=== PATIENT | male | born 1965 | race Caucasian/White ===

== ENCOUNTER 2018-10-02 12:00 | Inpatient (IN) | payer MEDICAID ==
[~2018-10-02] VITALS: Ht 190.5 cm; Wt 94.3 kg
[2018-10-02] MEDS ORDERED: RISP2 PO (12:45)
[2018-10-02] MEDS ORDERED: GABA-529 PO (12:45)
[2018-10-02 12:53] LABS: BASOPHILS % (AUTO) 0.9 % (0.0-2.0); EOSINOPHILS % (AUTO) 1.6 % (1.0-6.0); HEMATOCRIT 41.7 % (41-53); HEMOGLOBIN 13.9 g/dL (13.5-17.5); LYMPHOCYTES # (AUTO) 1.9 K/uL (1.0-4.8); LYMPHOCYTES % (AUTO) 29.4 % (22.0-44.0); MEAN CORPUSCULAR HEMOGLOBIN 31.3 pg (26.0-34.0); MEAN CORPUSCULAR HGB CONC 33.4 G/dL (31.0-37.0); MEAN CORPUSCULAR VOLUME 94 fL (80-100); MONOCYTES # (AUTO) 0.4 K/uL (0.1-1.0); MONOCYTES % (AUTO) 6.2 % (2.0-9.0); NEUTROPHILS # (AUTO) 3.9 K/uL (1.8-7.7); NEUTROPHILS % (AUTO) 61.9 % (40.0-70.0); PLATELET COUNT (AUTO) 230 K/uL (150-450); RED BLOOD CELL COUNT(AUTO) 4.45 MIL/uL (4.50-5.90)
[2018-10-02 13:05] LABS: ANION GAP 9 mmol/L (8-16); CARBON DIOXIDE 27 mmol/L (22-29); CHLORIDE 104 mmol/L (98-107); CREATININE 0.86 mg/dL (0.60-1.30); GLOMERULAR FILTR. RATE CALC > 60 mL/min (>60); GLUCOSE,RANDOM 96 mg/dL (70-110); POTASSIUM 3.8 mmol/L (3.5-5.1); SODIUM SERUM 140 mmol/L (136-145); UREA NITROGEN, BLOOD 6 mg/dL (7-18)
[2018-10-02 13:10] LABS: ALANINE AMINOTRANSFERASE 32 U/L (12-78); ALBUMIN 3.6 g/dL (3.4-5.0); ALKALINE PHOSPHATASE 94 U/L (46-116); ASPARTATE AMINOTRANSFERASE 26 U/L (15-37); BILIRUBIN,TOTAL 0.2 mg/dL (0.1-1.0); TOTAL PROTEIN, SERUM 6.7 g/dL (6.4-8.2)
[2018-10-02 14:25] LABS: AMPHET/METH SCREEN,URINE NEGATIVE (NEGATIVE); BARBITURATE SCREEN, URINE NEGATIVE (NEGATIVE); BENZODIAZEPINES SCREEN,URINE NEGATIVE (NEGATIVE); CANNABINOID SCREEN,URINE POSITIVE (NEGATIVE); COCAINE SCREEN,URINE NEGATIVE (NEGATIVE); METHADONE SCREEN, URINE NEGATIVE (NEGATIVE); OPIATE SCREEN,URINE NEGATIVE (NEGATIVE)
[2018-10-02 14:27] LABS: PHENCYCLIDINE SCREEN,URINE NEGATIVE (NEGATIVE)
[2018-10-02] MEDS ORDERED: PROMETHAZINE HCL 25 MG TABLET PO PRN (15:15)
[2018-10-02] MEDS ORDERED: HydrOXYzine PAMOATE 50 MG CAPSULE PO PRN (15:15)
[2018-10-02] MEDS ORDERED: GuaiFENesin/D-METHORPHAN [SUGAR-FREE] 200-20MG/10 ML SYRUP UDCUP PO PRN (15:15)
[2018-10-02] MEDS ORDERED: ZOLPIDEM TARTRATE 10 MG TABLET PO PRN (15:15)
[2018-10-02] MEDS ORDERED: LOPERAMIDE HCL 2 MG CAPSULE PO PRN ×2 (15:15)
[2018-10-02] MEDS ORDERED: LORazepam 2 MG TABLET PO PRN (15:15)
[2018-10-02] MEDS ORDERED: MAG HYDROX/AL HYDROX/SIMETH ES 30 ML SUSPENSION UDCUP PO PRN (15:15)
[2018-10-02] MEDS ORDERED: TUBERCULIN, PURIFIED PROTEIN DERIVATIVE 5 TU/0.1 ML SYRINGE ID ONE (15:15)
[2018-10-02] MEDS ORDERED: OLANZapine 5 MG RAPDIS TABLET PO PRN (15:15)
[2018-10-02] MEDS ORDERED: CYANOCOBALAMIN 1,000 MCG/ML VIAL IM ONE (15:15)
[2018-10-02] MEDS ORDERED: MAGNESIUM HYDROXIDE SUSPENSION 30 ML UDCUP PO PRN (15:15)
[2018-10-02] MEDS ORDERED: ACETAMINOPHEN 325 MG TABLET PO PRN (15:15)
[2018-10-02] MEDS: GABAPENTIN 300 MG CAPSULE PO SCH ×2 (16:11→20:33)
[2018-10-02] MEDS ORDERED: OLANZapine 10 MG RAPDIS TABLET PO SCH (21:00)
[2018-10-02] MEDS: THIAMINE HCL 100 MG TABLET PO SCH (21:16)
[2018-10-03] VITALS (11 sets, daily range): BP systolic 119–148; BP diastolic 64–96
[2018-10-03] MEDS ORDERED: LORazepam 2 MG TABLET PO PRN (07:00)
[2018-10-03] MEDS: DULoxetine HCL 20 MG CAPSULE PO SCH (09:44)
[2018-10-03] MEDS: FOLIC ACID 1 MG TABLET PO SCH (09:44)
[2018-10-03] MEDS: THIAMINE HCL 100 MG TABLET PO SCH ×2 (09:44→16:51)
[2018-10-03] MEDS: LORazepam 2 MG TABLET PO SCH ×4 (09:44→21:25)
[2018-10-03] MEDS: MULTIVITAMINS WITH MINERALS, THERAPEUTIC TABLET PO SCH (09:44)
[2018-10-03] MEDS: GABAPENTIN 300 MG CAPSULE PO SCH ×4 (09:44→21:25)
[2018-10-03] MEDS: NICOTINE 21 MG/24 HOUR PATCH TD SCH (09:46)
[2018-10-03] MEDS: ASPIRIN 81 MG EC TABLET PO SCH (09:46)
[2018-10-03 09:48] LABS: HEMOGLOBIN A1C 5.9 % (4.5-6.2)
[2018-10-03 10:02] LABS: CHOL/HDL RATIO 2.5 (4.2-7.3); FREE T4 (FREE THYROXINE) 0.95 ng/dL (0.76-1.46); THYROID STIMULATING HORMONE 0.52 uIU/mL (0.36-3.74)
[2018-10-03] MEDS ORDERED: QUEtiapine FUMARATE 25 MG TABLET PO PRN (17:45)
[2018-10-03] MEDS ORDERED: QUEtiapine FUMARATE 100 MG TABLET PO SCH (21:00)
[2018-10-04 08:00] VITALS: BP 142/84
[2018-10-04] MEDS ORDERED: QUEtiapine FUMARATE 25 MG TABLET PO SCH (09:00)
[2018-10-04] MEDS: FOLIC ACID 1 MG TABLET PO SCH (09:18)
[2018-10-04] MEDS: MULTIVITAMINS WITH MINERALS, THERAPEUTIC TABLET PO SCH (09:18)
[2018-10-04] MEDS: THIAMINE HCL 100 MG TABLET PO SCH ×2 (09:18→17:06)
[2018-10-04] MEDS: DULoxetine HCL 20 MG CAPSULE PO SCH (09:18)
[2018-10-04] MEDS: GABAPENTIN 300 MG CAPSULE PO SCH ×4 (09:18→20:54)
[2018-10-04] MEDS: NICOTINE 21 MG/24 HOUR PATCH TD SCH (09:19)
[2018-10-04] MEDS: ASPIRIN 81 MG EC TABLET PO SCH (09:19)
[2018-10-04] MEDS: LORazepam 2 MG TABLET PO SCH ×4 (09:19→20:54)
[2018-10-04] MEDS: QUEtiapine FUMARATE 25 MG TABLET PO SCH ×2 (13:14→17:06)
[2018-10-04 15:15] VITALS: BP 110/77
[2018-10-04 16:36] VITALS: BP 128/88
[2018-10-04] MEDS ORDERED: QUEtiapine FUMARATE 200 MG TABLET PO SCH (21:00)
[2018-10-05 04:07] VITALS: BP 129/85
[2018-10-05] MEDS ORDERED: LORazepam 1 MG TABLET PO PRN (07:00)
[2018-10-05 08:00] VITALS: BP 147/98
[2018-10-05] MEDS: ASPIRIN 81 MG EC TABLET PO SCH (09:42)
[2018-10-05] MEDS: DULoxetine HCL 20 MG CAPSULE PO SCH (09:42)
[2018-10-05] MEDS: QUEtiapine FUMARATE 25 MG TABLET PO SCH ×3 (09:42→16:48)
[2018-10-05] MEDS: FOLIC ACID 1 MG TABLET PO SCH (09:42)
[2018-10-05] MEDS: GABAPENTIN 300 MG CAPSULE PO SCH ×4 (09:42→21:02)
[2018-10-05] MEDS: MULTIVITAMINS WITH MINERALS, THERAPEUTIC TABLET PO SCH (09:43)
[2018-10-05] MEDS: THIAMINE HCL 100 MG TABLET PO SCH ×2 (09:43→16:48)
[2018-10-05] MEDS: NICOTINE 21 MG/24 HOUR PATCH TD SCH (09:43)
[2018-10-05] MEDS: LORazepam 1 MG TABLET PO SCH ×4 (09:44→21:02)
[2018-10-05 17:00] VITALS: BP 153/95
[2018-10-05] MEDS ORDERED: QUEtiapine FUMARATE 200 MG TABLET PO SCH (21:00)
[2018-10-05 22:30] VITALS: BP 153/95
[2018-10-06] MEDS ORDERED: LORazepam 1 MG TABLET PO PRN (07:00)
[2018-10-06 07:07] VITALS: BP 125/90
[2018-10-06] MEDS: NICOTINE 21 MG/24 HOUR PATCH TD SCH (09:18)
[2018-10-06] MEDS: FOLIC ACID 1 MG TABLET PO SCH (09:19)
[2018-10-06] MEDS: DULoxetine HCL 20 MG CAPSULE PO SCH (09:19)
[2018-10-06] MEDS: QUEtiapine FUMARATE 25 MG TABLET PO SCH ×3 (09:19→16:38)
[2018-10-06] MEDS: ASPIRIN 81 MG EC TABLET PO SCH (09:19)
[2018-10-06] MEDS: THIAMINE HCL 100 MG TABLET PO SCH ×2 (09:19→16:36)
[2018-10-06] MEDS: GABAPENTIN 300 MG CAPSULE PO SCH ×2 (09:19→12:29)
[2018-10-06] MEDS: MULTIVITAMINS WITH MINERALS, THERAPEUTIC TABLET PO SCH (09:19)
[2018-10-06 10:34] VITALS: BP 136/98
[2018-10-06 13:58] VITALS: BP 101/56
[2018-10-06] MEDS: GABAPENTIN 400 MG CAPSULE PO SCH (16:46)
[2018-10-06 17:25] VITALS: BP 122/85
[2018-10-06 17:44] VITALS: BP 122/85
[2018-10-06] MEDS: QUEtiapine FUMARATE 200 MG TABLET PO SCH (20:30)
[2018-10-07 06:06] VITALS: BP 117/80
[2018-10-07] MEDS: GABAPENTIN 400 MG CAPSULE PO SCH ×3 (09:22→16:15)
[2018-10-07] MEDS: FOLIC ACID 1 MG TABLET PO SCH (09:22)
[2018-10-07] MEDS: DULoxetine HCL 30 MG CAPSULE PO SCH (09:23)
[2018-10-07] MEDS: MULTIVITAMINS WITH MINERALS, THERAPEUTIC TABLET PO SCH (09:23)
[2018-10-07] MEDS: THIAMINE HCL 100 MG TABLET PO SCH ×2 (09:23→16:15)
[2018-10-07] MEDS: ASPIRIN 81 MG EC TABLET PO SCH (09:23)
[2018-10-07] MEDS: QUEtiapine FUMARATE 25 MG TABLET PO SCH ×3 (09:24→16:15)
[2018-10-07] MEDS: NICOTINE 21 MG/24 HOUR PATCH TD SCH (09:29)
[2018-10-07 13:22] VITALS: BP 123/99
[2018-10-07 13:41] VITALS: BP 123/99
[2018-10-07 16:05] VITALS: BP 108/85
[2018-10-07] MEDS: QUEtiapine FUMARATE 200 MG TABLET PO SCH (20:18)
[2018-10-08] MEDS: THIAMINE HCL 100 MG TABLET PO SCH ×2 (08:43→16:00)
[2018-10-08] MEDS: FOLIC ACID 1 MG TABLET PO SCH (08:43)
[2018-10-08] MEDS: GABAPENTIN 400 MG CAPSULE PO SCH ×3 (08:43→16:00)
[2018-10-08] MEDS: QUEtiapine FUMARATE 25 MG TABLET PO SCH ×3 (08:43→16:00)
[2018-10-08] MEDS: ASPIRIN 81 MG EC TABLET PO SCH (08:43)
[2018-10-08] MEDS: NICOTINE 21 MG/24 HOUR PATCH TD SCH (08:43)
[2018-10-08] MEDS: MULTIVITAMINS WITH MINERALS, THERAPEUTIC TABLET PO SCH (08:43)
[2018-10-08] MEDS: DULoxetine HCL 30 MG CAPSULE PO SCH (08:43)
[2018-10-08 13:18] VITALS: BP 140/100
[2018-10-08 17:18] VITALS: BP 141/81
[2018-10-08 17:32] VITALS: BP 141/81
[2018-10-08] MEDS: QUEtiapine FUMARATE 200 MG TABLET PO SCH (20:49)
[2018-10-09 00:56] VITALS: BP 102/68
[2018-10-09] MEDS: ASPIRIN 81 MG EC TABLET PO SCH (08:18)
[2018-10-09] MEDS: THIAMINE HCL 100 MG TABLET PO SCH (08:19)
[2018-10-09] MEDS: GABAPENTIN 400 MG CAPSULE PO SCH (08:19)
[2018-10-09] MEDS: QUEtiapine FUMARATE 25 MG TABLET PO SCH (08:19)
[2018-10-09] MEDS: MULTIVITAMINS WITH MINERALS, THERAPEUTIC TABLET PO SCH (08:19)
[2018-10-09] MEDS: FOLIC ACID 1 MG TABLET PO SCH (08:19)
[2018-10-09] MEDS: NICOTINE 21 MG/24 HOUR PATCH TD SCH (08:22)
[2018-10-09] MEDS: DULoxetine HCL 30 MG CAPSULE PO SCH (09:00)
[2018-10-09] MEDS ORDERED: GABA-533 PO (09:04)
[2018-10-09] MEDS ORDERED: QUET200T PO (09:04)
[2018-10-09] MEDS ORDERED: QUET25TA PO (09:04)
[2018-10-09] MEDS ORDERED: DULO30CA2 PO (09:04)
[2018-10-09] MEDS ORDERED: ASPI-1182 PO (09:25)
[2018-10-09 09:42] VITALS: BP 111/90
== END 2018-10-09 11:00 | disposition home or self-care (01) | DRG 750 ==
LOC: EMS 12:00 → 3EI 10-03 01:30
PROVIDERS: ADMIT Psychiatry & Neurology Psychiatry; ATTEND Psychiatry & Neurology Psychiatry
DX: F25.9 Schizoaffective disorder, unspecified (principal); R45.851 Suicidal ideations; Z91.14 Patient's other noncompliance with medication regimen; F12.90 Cannabis use, unspecified, uncomplicated; F17.210 Nicotine dependence, cigarettes, uncomplicated; J44.9 Chronic obstructive pulmonary disease, unspecified; G89.29 Other chronic pain; S61.511A Laceration without foreign body of right wrist, initial encounter; X83.8XXA Intentional self-harm by other specified means, initial encounter; Y93.89 Activity, other specified; Y92.89 Other specified places as the place of occurrence of the external cause; Y99.8 Other external cause status
CPT/HCPCS: 83036; 84439; 84443; 86592; 96372; G0480; J3420

== ENCOUNTER 2018-11-25 17:30 | Emergency (ER) | payer MEDICAID ==
[~2018-11-25] VITALS: Ht 177.8 cm; Wt 70.0 kg
[~2018-11-25 17:30] MED LIST: ASPI-1182 PO; DULO30CA2 PO; GABA-533 PO; QUET200T PO; QUET25TA PO
[2018-11-25 18:41] LABS: BASOPHILS % (AUTO) 0.6 % (0.0-2.0); EOSINOPHILS % (AUTO) 1.5 % (1.0-6.0); HEMATOCRIT 49.2 % (41-53); HEMOGLOBIN 16.1 g/dL (13.5-17.5); LYMPHOCYTES # (AUTO) 1.7 K/uL (1.0-4.8); LYMPHOCYTES % (AUTO) 24.6 % (22.0-44.0); MEAN CORPUSCULAR HEMOGLOBIN 32.5 pg (26.0-34.0); MEAN CORPUSCULAR HGB CONC 32.8 G/dL (31.0-37.0); MEAN CORPUSCULAR VOLUME 99 fL (80-100); MONOCYTES # (AUTO) 0.6 K/uL (0.1-1.0); MONOCYTES % (AUTO) 8.4 % (2.0-9.0); NEUTROPHILS # (AUTO) 4.4 K/uL (1.8-7.7); NEUTROPHILS % (AUTO) 64.9 % (40.0-70.0); PLATELET COUNT (AUTO) 264 K/uL (150-450); RED BLOOD CELL COUNT(AUTO) 4.97 MIL/uL (4.50-5.90); RED CELL DISTRIBUTION WIDTH 15.6 % (11.5-14.5)
[2018-11-25 18:50] LABS: ANION GAP 14 mmol/L (8-16); CALCIUM, TOTAL 9.8 mg/dL (8.8-10.5); CARBON DIOXIDE 25 mmol/L (22-29); CHLORIDE 103 mmol/L (98-107); CREATININE 0.85 mg/dL (0.60-1.30); GLOMERULAR FILTR. RATE CALC > 60 mL/min (>60); GLUCOSE,RANDOM 107 mg/dL (70-110); SODIUM SERUM 142 mmol/L (136-145); UREA NITROGEN, BLOOD 15 mg/dL (7-18)
[2018-11-25 20:30] VITALS: BP 132/82
== END 2018-11-25 20:46 | disposition home or self-care (01) ==
LOC: EMS 17:31
DX: F41.9 Anxiety disorder, unspecified (principal); R07.89 Other chest pain; J43.9 Emphysema, unspecified; F31.9 Bipolar disorder, unspecified; F20.9 Schizophrenia, unspecified; F12.90 Cannabis use, unspecified, uncomplicated; F17.210 Nicotine dependence, cigarettes, uncomplicated; Z79.899 Other long term (current) drug therapy
CPT/HCPCS: 93005; 99406

== ENCOUNTER 2019-01-04 12:34 | Emergency (ER) | payer MEDICAID ==
[~2019-01-04] VITALS: Ht 190.5 cm; Wt 86.4 kg
[~2019-01-04 12:34] MED LIST changes: -ASPI-1182 PO; +LIB25 PO
[2019-01-04] MEDS ORDERED: NICOTINE 21 MG/24 HOUR PATCH TD ONE (14:30)
[2019-01-04] MEDS ORDERED: ChlordiazePOXIDE HCL 25 MG CAPSULE PO ONE (14:30)
[2019-01-04] MEDS ORDERED: ONDANSETRON HCL 4 MG TABLET PO ONE (14:30)
[2019-01-04] MEDS ORDERED: ACETAMINOPHEN 500 MG TABLET PO ONE (14:30)
[2019-01-04 15:08] VITALS: BP 133/98
[2019-01-04 15:09] LABS: BASOPHILS % (AUTO) 0.5 % (0.0-2.0); EOSINOPHILS % (AUTO) 2.1 % (1.0-6.0); HEMATOCRIT 45.3 % (41-53); HEMOGLOBIN 14.8 g/dL (13.5-17.5); LYMPHOCYTES % (AUTO) 25.9 % (22.0-44.0); MEAN CORPUSCULAR HEMOGLOBIN 33.4 pg (26.0-34.0); MEAN CORPUSCULAR HGB CONC 32.7 G/dL (31.0-37.0); MEAN CORPUSCULAR VOLUME 102 fL (80-100); MONOCYTES # (AUTO) 0.8 K/uL (0.1-1.0); MONOCYTES % (AUTO) 10.6 % (2.0-9.0); NEUTROPHILS # (AUTO) 4.8 K/uL (1.8-7.7); NEUTROPHILS % (AUTO) 60.9 % (40.0-70.0); PLATELET COUNT (AUTO) 318 K/uL (150-450); RED BLOOD CELL COUNT(AUTO) 4.44 MIL/uL (4.50-5.90)
[2019-01-04 15:27] LABS: ANION GAP 6 mmol/L (8-16); CALCIUM, TOTAL 9.2 mg/dL (8.8-10.5); CARBON DIOXIDE 29 mmol/L (22-29); CHLORIDE 101 mmol/L (98-107); GLOMERULAR FILTR. RATE CALC > 60 mL/min (>60); GLUCOSE,RANDOM 103 mg/dL (70-110); POTASSIUM 4.1 mmol/L (3.5-5.1); SODIUM SERUM 136 mmol/L (136-145); UREA NITROGEN, BLOOD 9 mg/dL (7-18)
[2019-01-04 15:31] LABS: ALANINE AMINOTRANSFERASE 27 U/L (12-78); ALBUMIN 3.5 g/dL (3.4-5.0); ALKALINE PHOSPHATASE 77 U/L (46-116); ASPARTATE AMINOTRANSFERASE 13 U/L (15-37); BILIRUBIN,TOTAL 0.5 mg/dL (0.1-1.0); TOTAL PROTEIN, SERUM 6.7 g/dL (6.4-8.2)
== END 2019-01-04 16:22 | disposition home or self-care (01) ==
LOC: EMS 12:38
DX: F10.10 Alcohol abuse, uncomplicated (principal); F15.10 Other stimulant abuse, uncomplicated; R42 Dizziness and giddiness; R25.1 Tremor, unspecified; F17.210 Nicotine dependence, cigarettes, uncomplicated; F31.9 Bipolar disorder, unspecified; I10 Essential (primary) hypertension; F20.9 Schizophrenia, unspecified; F12.90 Cannabis use, unspecified, uncomplicated
CPT/HCPCS: 36415; 80053; 85025; 99284; 99406; Q0162

== ENCOUNTER 2019-01-09 14:45 | Emergency (ER) | payer MEDICAID ==
[~2019-01-09] VITALS: Ht 190.5 cm; Wt 86.4 kg
[2019-01-09] MEDS ORDERED: ChlordiazePOXIDE HCL 25 MG CAPSULE PO ONE (15:30)
[2019-01-09] MEDS ORDERED: SODIUM CHLORIDE 0.9% 1,000 ML IV ONE (15:30)
[2019-01-09] MEDS ORDERED: ONDANSETRON HCL 4 MG/2 ML VIAL IVP ONE (15:30)
[2019-01-09 16:06] LABS: BASOPHILS % (AUTO) 0.7 % (0.0-2.0); EOSINOPHILS % (AUTO) 0.8 % (1.0-6.0); HEMATOCRIT 44.8 % (41-53); HEMOGLOBIN 15.3 g/dL (13.5-17.5); LYMPHOCYTES # (AUTO) 1.7 K/uL (1.0-4.8); LYMPHOCYTES % (AUTO) 23.7 % (22.0-44.0); MEAN CORPUSCULAR HEMOGLOBIN 34.3 pg (26.0-34.0); MEAN CORPUSCULAR HGB CONC 34.1 G/dL (31.0-37.0); MEAN CORPUSCULAR VOLUME 101 fL (80-100); MONOCYTES # (AUTO) 0.6 K/uL (0.1-1.0); MONOCYTES % (AUTO) 8.8 % (2.0-9.0); NEUTROPHILS # (AUTO) 4.8 K/uL (1.8-7.7); PLATELET COUNT (AUTO) 332 K/uL (150-450); RED BLOOD CELL COUNT(AUTO) 4.45 MIL/uL (4.50-5.90); RED CELL DISTRIBUTION WIDTH 16.2 % (11.5-14.5)
[2019-01-09 16:42] LABS: ANION GAP 8 mmol/L (8-16); CALCIUM, TOTAL 8.9 mg/dL (8.8-10.5); CARBON DIOXIDE 24 mmol/L (22-29); CHLORIDE 105 mmol/L (98-107); CREATININE 0.89 mg/dL (0.60-1.30); GLOMERULAR FILTR. RATE CALC > 60 mL/min (>60); GLUCOSE,RANDOM 94 mg/dL (70-110); POTASSIUM 4.1 mmol/L (3.5-5.1); SODIUM SERUM 137 mmol/L (136-145); UREA NITROGEN, BLOOD 13 mg/dL (7-18)
[2019-01-09 16:47] LABS: ALANINE AMINOTRANSFERASE 19 U/L (12-78); ALBUMIN 3.3 g/dL (3.4-5.0); ALKALINE PHOSPHATASE 67 U/L (46-116); ASPARTATE AMINOTRANSFERASE 17 U/L (15-37); BILIRUBIN,TOTAL 0.4 mg/dL (0.1-1.0); LIPASE 94 U/L (73-393); TOTAL PROTEIN, SERUM 6.1 g/dL (6.4-8.2)
[2019-01-09 16:53] LABS: APPEARANCE,URINE CLEAR (CLEAR); BILIRUBIN,URINE NEGATIVE (NEGATIVE); GLUCOSE, URINE (UA) NEGATIVE (NEGATIVE); KETONES,URINE NEGATIVE (NEGATIVE); LEUKOCYTE ESTERASE ,URINE NEGATIVE (NEGATIVE); NITRATE,URINE NEGATIVE (NEGATIVE); OCCULT BLOOD,URINE NEGATIVE (NEGATIVE); PROTEIN,URINE NEGATIVE (NEGATIVE); UROBILINOGEN,URINE 0.2 mg/dL (<=1.0)
[2019-01-09 17:07] VITALS: BP 119/79
== END 2019-01-09 17:14 | disposition home or self-care (01) ==
LOC: EMS 14:47
DX: F10.239 Alcohol dependence with withdrawal, unspecified (principal); F17.210 Nicotine dependence, cigarettes, uncomplicated; F31.9 Bipolar disorder, unspecified; I10 Essential (primary) hypertension; F20.9 Schizophrenia, unspecified; F12.90 Cannabis use, unspecified, uncomplicated; F19.90 Other psychoactive substance use, unspecified, uncomplicated; Y90.0 Blood alcohol level of less than 20 mg/100 ml
CPT/HCPCS: 36415; 80053; 81003; 83690; 85025; 96374; 99285; 99406; G0480; J2405; J7030

== ENCOUNTER 2019-01-10 18:12 | Inpatient (IN) | payer MEDICAID ==
[~2019-01-10] VITALS: Ht 191.8 cm; Wt 88.5 kg
[2019-01-10 23:28] LABS: BASOPHILS % (AUTO) 0.7 % (0.0-2.0); EOSINOPHILS % (AUTO) 1.5 % (1.0-6.0); HEMATOCRIT 43.5 % (41-53); HEMOGLOBIN 14.6 g/dL (13.5-17.5); LYMPHOCYTES # (AUTO) 2.2 K/uL (1.0-4.8); LYMPHOCYTES % (AUTO) 24.1 % (22.0-44.0); MEAN CORPUSCULAR HEMOGLOBIN 33.9 pg (26.0-34.0); MEAN CORPUSCULAR HGB CONC 33.6 G/dL (31.0-37.0); MEAN CORPUSCULAR VOLUME 101 fL (80-100); MONOCYTES # (AUTO) 0.7 K/uL (0.1-1.0); MONOCYTES % (AUTO) 7.3 % (2.0-9.0); NEUTROPHILS % (AUTO) 66.4 % (40.0-70.0); PLATELET COUNT (AUTO) 255 K/uL (150-450); RED CELL DISTRIBUTION WIDTH 15.2 % (11.5-14.5)
[2019-01-10 23:43] LABS: ANION GAP 8 mmol/L (8-16); CALCIUM, TOTAL 9.1 mg/dL (8.8-10.5); CARBON DIOXIDE 25 mmol/L (22-29); CHLORIDE 102 mmol/L (98-107); CREATININE 0.92 mg/dL (0.60-1.30); GLOMERULAR FILTR. RATE CALC > 60 mL/min (>60); GLUCOSE,RANDOM 88 mg/dL (70-110); POTASSIUM 4.2 mmol/L (3.5-5.1); SODIUM SERUM 135 mmol/L (136-145); UREA NITROGEN, BLOOD 7 mg/dL (7-18)
[2019-01-10 23:51] LABS: ALANINE AMINOTRANSFERASE 24 U/L (12-78); ALBUMIN 3.7 g/dL (3.4-5.0); ALKALINE PHOSPHATASE 77 U/L (46-116); ASPARTATE AMINOTRANSFERASE 20 U/L (15-37); BILIRUBIN,TOTAL 0.6 mg/dL (0.1-1.0); TOTAL PROTEIN, SERUM 6.7 g/dL (6.4-8.2)
[2019-01-10 23:54] LABS: AMPHET/METH SCREEN,URINE NEGATIVE (NEGATIVE); BARBITURATE SCREEN, URINE NEGATIVE (NEGATIVE); BENZODIAZEPINES SCREEN,URINE POSITIVE (NEGATIVE); CANNABINOID SCREEN,URINE POSITIVE (NEGATIVE); COCAINE SCREEN,URINE NEGATIVE (NEGATIVE); METHADONE SCREEN, URINE NEGATIVE (NEGATIVE); OPIATE SCREEN,URINE NEGATIVE (NEGATIVE)
[2019-01-10 23:55] LABS: PHENCYCLIDINE SCREEN,URINE NEGATIVE (NEGATIVE)
[2019-01-11] MEDS ORDERED: ZOLPIDEM TARTRATE 10 MG TABLET PO PRN (00:30)
[2019-01-11 03:14] VITALS: BP 148/94
[2019-01-11 03:23] VITALS: BP 148/94
[2019-01-11] MEDS ORDERED: OMEPRAZOLE 20 MG CAPSULE PO PRN (08:45)
[2019-01-11] MEDS ORDERED: ACETAMINOPHEN 325 MG TABLET PO PRN (08:45)
[2019-01-11] MEDS ORDERED: BENZOCAINE/MENTHOL LOZENGE MM PRN (08:45)
[2019-01-11] MEDS ORDERED: ONDANSETRON HCL 4 MG TABLET PO PRN (08:45)
[2019-01-11] MEDS ORDERED: IBUPROFEN 600 MG TABLET PO PRN (08:45)
[2019-01-11] MEDS ORDERED: MAGNESIUM HYDROXIDE SUSPENSION 30 ML UDCUP PO PRN (08:45)
[2019-01-11] MEDS ORDERED: MAG HYDROX/AL HYDROX/SIMETH ES 30 ML SUSPENSION UDCUP PO PRN (08:45)
[2019-01-11] MEDS ORDERED: ALBUTEROL SULFATE HFA 90 MCG/PUFF 8 GM INHALER IH PRN (08:45)
[2019-01-11] MEDS ORDERED: PETROLATUM,WHITE 28 GM JELLY TP PRN (08:45)
[2019-01-11] MEDS ORDERED: LOPERAMIDE HCL 2 MG CAPSULE PO PRN (08:45)
[2019-01-11] MEDS ORDERED: CloNIDine HCL 0.1 MG TABLET PO PRN (08:45)
[2019-01-11] MEDS ORDERED: BACITRACIN 28.4 GM OINTMENT TP PRN (08:45)
[2019-01-11] MEDS ORDERED: DOCUSATE SODIUM 100 MG CAPSULE PO PRN (08:45)
[2019-01-11] MEDS ORDERED: LISINOPRIL 10 MG TABLET PO SCH (09:00)
[2019-01-11 09:27] VITALS: BP 134/84
[2019-01-11] MEDS: NICOTINE 21 MG/24 HOUR PATCH TD SCH (09:44)
[2019-01-11 16:49] VITALS: BP_SYST 111; BP_SYST 138; BP_DIAS 57; BP_DIAS 94
[2019-01-11] MEDS: QUEtiapine FUMARATE 200 MG TABLET PO SCH (20:23)
[2019-01-12 06:58] LABS: CHOL/HDL RATIO 3.1 (4.2-7.3)
[2019-01-12 07:08] VITALS: BP 96/60
[2019-01-12] MEDS: LISINOPRIL 5 MG TABLET PO SCH (09:00)
[2019-01-12 09:11] VITALS: BP 136/84
[2019-01-12] MEDS: GABAPENTIN 300 MG CAPSULE PO SCH ×3 (10:00→16:07)
[2019-01-12] MEDS: DULoxetine HCL 60 MG CAPSULE PO SCH (10:00)
[2019-01-12] MEDS: NICOTINE 21 MG/24 HOUR PATCH TD SCH (10:02)
[2019-01-12 20:27] VITALS: BP 110/67
[2019-01-12] MEDS: QUEtiapine FUMARATE 200 MG TABLET PO SCH (20:40)
[2019-01-13 06:50] VITALS: BP 109/74
[2019-01-13 08:49] VITALS: BP 106/74
[2019-01-13] MEDS: DULoxetine HCL 60 MG CAPSULE PO SCH (09:19)
[2019-01-13] MEDS: LISINOPRIL 5 MG TABLET PO SCH (09:19)
[2019-01-13] MEDS: GABAPENTIN 300 MG CAPSULE PO SCH ×3 (09:19→16:12)
[2019-01-13] MEDS: NICOTINE 21 MG/24 HOUR PATCH TD SCH (09:21)
[2019-01-13 17:54] VITALS: BP 111/74
[2019-01-13] MEDS: QUEtiapine FUMARATE 200 MG TABLET PO SCH (20:12)
[2019-01-13 20:15] VITALS: BP 118/75
[2019-01-14 06:51] VITALS: BP 106/68
[2019-01-14] MEDS: LISINOPRIL 5 MG TABLET PO SCH (09:16)
[2019-01-14] MEDS: GABAPENTIN 300 MG CAPSULE PO SCH ×3 (09:16→15:59)
[2019-01-14] MEDS: DULoxetine HCL 60 MG CAPSULE PO SCH (09:16)
[2019-01-14] MEDS: NICOTINE 21 MG/24 HOUR PATCH TD SCH (09:18)
[2019-01-14] MEDS: LORazepam 2 MG TABLET PO PRN ×2 (09:21→16:00)
[2019-01-14] MEDS: HALOPERIDOL 5 MG TABLET PO PRN (09:22)
[2019-01-14 11:14] VITALS: BP 106/79
[2019-01-14 16:39] VITALS: BP 123/75
[2019-01-14] MEDS: QUEtiapine FUMARATE 200 MG TABLET PO SCH (20:33)
[2019-01-15] MEDS: LISINOPRIL 5 MG TABLET PO SCH (08:05)
[2019-01-15] MEDS: DULoxetine HCL 60 MG CAPSULE PO SCH (08:05)
[2019-01-15] MEDS: GABAPENTIN 300 MG CAPSULE PO SCH ×3 (08:05→16:25)
[2019-01-15] MEDS: NICOTINE 21 MG/24 HOUR PATCH TD SCH (08:06)
[2019-01-15] MEDS: HALOPERIDOL 5 MG TABLET PO PRN ×2 (08:07→16:46)
[2019-01-15] MEDS: LORazepam 2 MG TABLET PO PRN ×2 (08:07→16:46)
[2019-01-15 08:25] VITALS: BP 100/77
[2019-01-15 18:20] VITALS: BP 93/63
[2019-01-15] MEDS: QUEtiapine FUMARATE 200 MG TABLET PO SCH (20:33)
[2019-01-16 03:55] VITALS: BP 96/68
[2019-01-16] MEDS: LORazepam 2 MG TABLET PO PRN ×2 (04:00→11:29)
[2019-01-16] MEDS: DULoxetine HCL 60 MG CAPSULE PO SCH (08:49)
[2019-01-16] MEDS: GABAPENTIN 300 MG CAPSULE PO SCH ×3 (08:49→16:25)
[2019-01-16] MEDS: LISINOPRIL 5 MG TABLET PO SCH (08:49)
[2019-01-16] MEDS: NICOTINE 21 MG/24 HOUR PATCH TD SCH (08:58)
[2019-01-16 11:29] VITALS: BP 131/89
[2019-01-16 17:41] VITALS: BP 102/75
[2019-01-16] MEDS: QUEtiapine FUMARATE 200 MG TABLET PO SCH (20:32)
[2019-01-17 04:35] VITALS: BP 103/77
[2019-01-17] MEDS: LORazepam 2 MG TABLET PO PRN ×2 (04:42→12:02)
[2019-01-17] MEDS: GABAPENTIN 300 MG CAPSULE PO SCH ×3 (08:28→16:30)
[2019-01-17] MEDS: DULoxetine HCL 60 MG CAPSULE PO SCH (08:28)
[2019-01-17] MEDS: LISINOPRIL 5 MG TABLET PO SCH (08:28)
[2019-01-17] MEDS: NICOTINE 21 MG/24 HOUR PATCH TD SCH (08:37)
[2019-01-17 09:26] VITALS: BP 94/76
[2019-01-17] MEDS ORDERED: LISI-660 PO (14:50)
[2019-01-17 16:25] VITALS: BP 120/79
== END 2019-01-17 18:45 | disposition home or self-care (01) | DRG 750 ==
LOC: EMS 18:15 → 3EI 01-11 00:55
PROVIDERS: ADMIT Psychiatry & Neurology Psychiatry; ATTEND Psychiatry & Neurology Psychiatry
DX: F25.9 Schizoaffective disorder, unspecified (principal); R45.851 Suicidal ideations; F10.10 Alcohol abuse, uncomplicated; I10 Essential (primary) hypertension; F12.10 Cannabis abuse, uncomplicated; F15.10 Other stimulant abuse, uncomplicated; F41.9 Anxiety disorder, unspecified; G47.00 Insomnia, unspecified; Z87.891 Personal history of nicotine dependence
CPT/HCPCS: 87081; G0480

== ENCOUNTER 2019-03-18 15:58 | Inpatient (IN) | payer MEDICAID ==
[~2019-03-18] VITALS: Ht 182.9 cm; Wt 88.7 kg
[~2019-03-18 15:58] MED LIST changes: -LIB25 PO; +LISI-660 PO; -QUET25TA PO
[2019-03-18 16:39] LABS: BASOPHILS % (AUTO) 0.6 % (0.0-2.0); EOSINOPHILS % (AUTO) 0.9 % (1.0-6.0); HEMATOCRIT 40.6 % (41-53); HEMOGLOBIN 13.8 g/dL (13.5-17.5); LYMPHOCYTES # (AUTO) 2.3 K/uL (1.0-4.8); LYMPHOCYTES % (AUTO) 27.3 % (22.0-44.0); MEAN CORPUSCULAR VOLUME 100 fL (80-100); MONOCYTES # (AUTO) 0.7 K/uL (0.1-1.0); MONOCYTES % (AUTO) 8.7 % (2.0-9.0); NEUTROPHILS # (AUTO) 5.3 K/uL (1.8-7.7); NEUTROPHILS % (AUTO) 62.5 % (40.0-70.0); PLATELET COUNT (AUTO) 238 K/uL (150-450); RED BLOOD CELL COUNT(AUTO) 4.06 MIL/uL (4.50-5.90); RED CELL DISTRIBUTION WIDTH 14.2 % (11.5-14.5)
[2019-03-18 16:58] LABS: ANION GAP 11 mmol/L (8-16); CALCIUM, TOTAL 8.8 mg/dL (8.8-10.5); CARBON DIOXIDE 26 mmol/L (22-29); CHLORIDE 97 mmol/L (98-107); CREATININE 0.68 mg/dL (0.60-1.30); GLOMERULAR FILTR. RATE CALC > 60 mL/min (>60); GLUCOSE,RANDOM 100 mg/dL (70-110); POTASSIUM 3.6 mmol/L (3.5-5.1); SODIUM SERUM 134 mmol/L (136-145); UREA NITROGEN, BLOOD 8 mg/dL (7-18)
[2019-03-18] MEDS ORDERED: HALOPERIDOL 5 MG TABLET PO PRN (17:00)
[2019-03-18 17:06] LABS: ALANINE AMINOTRANSFERASE 21 U/L (12-78); ALBUMIN 3.7 g/dL (3.4-5.0); ALKALINE PHOSPHATASE 71 U/L (46-116); ASPARTATE AMINOTRANSFERASE 19 U/L (15-37); BILIRUBIN,TOTAL 0.2 mg/dL (0.1-1.0); TOTAL PROTEIN, SERUM 6.4 g/dL (6.4-8.2)
[2019-03-18] MEDS ORDERED: DULO60CA44 PO (17:11)
[2019-03-18] MEDS ORDERED: GABA-531 PO (17:11)
[2019-03-18 17:51] LABS: AMPHET/METH SCREEN,URINE NEGATIVE (NEGATIVE); BARBITURATE SCREEN, URINE NEGATIVE (NEGATIVE); BENZODIAZEPINES SCREEN,URINE NEGATIVE (NEGATIVE); CANNABINOID SCREEN,URINE NEGATIVE (NEGATIVE); COCAINE SCREEN,URINE NEGATIVE (NEGATIVE); METHADONE SCREEN, URINE NEGATIVE (NEGATIVE); OPIATE SCREEN,URINE NEGATIVE (NEGATIVE)
[2019-03-18 17:52] LABS: PHENCYCLIDINE SCREEN,URINE NEGATIVE (NEGATIVE)
[2019-03-18] MEDS: LORazepam 2 MG TABLET PO PRN (20:36)
[2019-03-18] MEDS ORDERED: PNEUMOCOCCAL VACCINE POLYVALENT 0.5 ML VIAL [PPSV23] IM ONE (23:15)
[2019-03-18] MEDS ORDERED: INFLUENZA VIRUS VACCINE QVS 2019-20 (3YR+)/PF 60 MCG/0.5 ML SYRINGE IM ONE (23:15)
[2019-03-19 06:48] VITALS: BP 100/66
[2019-03-19 08:36] VITALS: BP 108/70
[2019-03-19 08:38] LABS: CHOL/HDL RATIO 2.7 (4.2-7.3); FREE T4 (FREE THYROXINE) 1.08 ng/dL (0.76-1.46); THYROID STIMULATING HORMONE 0.62 uIU/mL (0.36-3.74)
[2019-03-19] MEDS: NICOTINE 21 MG/24 HOUR PATCH TD SCH (09:55)
[2019-03-19] MEDS: GABAPENTIN 300 MG CAPSULE PO SCH ×2 (12:47→16:45)
[2019-03-19] MEDS: SERTRALINE HCL 50 MG TABLET PO SCH (12:48)
[2019-03-19 16:12] VITALS: BP 101/66
[2019-03-19] MEDS: LORazepam 2 MG TABLET PO PRN (16:45)
[2019-03-19] MEDS: ZOLPIDEM TARTRATE 10 MG TABLET PO PRN (21:03)
[2019-03-19] MEDS: QUEtiapine FUMARATE 300 MG TABLET PO SCH (21:03)
[2019-03-19] MEDS ORDERED: IBUPROFEN 600 MG TABLET PO PRN (21:45)
[2019-03-19] MEDS ORDERED: ACETAMINOPHEN 325 MG TABLET PO PRN (21:45)
[2019-03-19] MEDS ORDERED: OMEPRAZOLE 20 MG CAPSULE PO PRN (21:45)
[2019-03-19] MEDS ORDERED: CloNIDine HCL 0.1 MG TABLET PO PRN (21:45)
[2019-03-19] MEDS ORDERED: PETROLATUM,WHITE 28 GM JELLY TP PRN (21:45)
[2019-03-19] MEDS ORDERED: MAGNESIUM HYDROXIDE SUSPENSION 30 ML UDCUP PO PRN (21:45)
[2019-03-19] MEDS ORDERED: DOCUSATE SODIUM 100 MG CAPSULE PO PRN (21:45)
[2019-03-19] MEDS ORDERED: ONDANSETRON HCL 4 MG TABLET PO PRN (21:45)
[2019-03-19] MEDS ORDERED: BENZOCAINE/MENTHOL LOZENGE MM PRN (21:45)
[2019-03-19] MEDS ORDERED: BACITRACIN 28.4 GM OINTMENT TP PRN (21:45)
[2019-03-19] MEDS ORDERED: MAG HYDROX/AL HYDROX/SIMETH ES 30 ML SUSPENSION UDCUP PO PRN (21:45)
[2019-03-19] MEDS ORDERED: ALBUTEROL SULFATE HFA 90 MCG/PUFF 8 GM INHALER IH PRN (21:45)
[2019-03-19] MEDS ORDERED: LOPERAMIDE HCL 2 MG CAPSULE PO PRN (21:45)
[2019-03-20 06:05] VITALS: BP 109/67
[2019-03-20 08:18] VITALS: BP 102/72
[2019-03-20] MEDS: GABAPENTIN 300 MG CAPSULE PO SCH ×3 (08:39→16:48)
[2019-03-20] MEDS: SERTRALINE HCL 50 MG TABLET PO SCH (08:39)
[2019-03-20] MEDS: NICOTINE 21 MG/24 HOUR PATCH TD SCH (08:39)
[2019-03-20] MEDS: LORazepam 2 MG TABLET PO PRN ×2 (08:53→16:48)
[2019-03-20 16:12] VITALS: BP 109/75
[2019-03-20] MEDS: QUEtiapine FUMARATE 300 MG TABLET PO SCH (20:58)
[2019-03-20] MEDS: ZOLPIDEM TARTRATE 10 MG TABLET PO PRN (20:58)
[2019-03-21 06:31] VITALS: BP 115/81
[2019-03-21 07:35] LABS: HEMATOCRIT 44.3 % (41-53); HEMOGLOBIN 14.9 g/dL (13.5-17.5); MEAN CORPUSCULAR HEMOGLOBIN 34.2 pg (26.0-34.0); MEAN CORPUSCULAR HGB CONC 33.7 G/dL (31.0-37.0); MEAN CORPUSCULAR VOLUME 102 fL (80-100); PLATELET COUNT (AUTO) 232 K/uL (150-450); RED BLOOD CELL COUNT(AUTO) 4.36 MIL/uL (4.50-5.90); RED CELL DISTRIBUTION WIDTH 14.5 % (11.5-14.5)
[2019-03-21 07:53] LABS: ANION GAP 6 mmol/L (8-16); CALCIUM, TOTAL 8.4 mg/dL (8.8-10.5); CARBON DIOXIDE 27 mmol/L (22-29); CHLORIDE 102 mmol/L (98-107); CREATININE 0.77 mg/dL (0.60-1.30); GLOMERULAR FILTR. RATE CALC > 60 mL/min (>60); GLUCOSE,RANDOM 90 mg/dL (70-110); PHOSPHORUS 3.1 mg/dL (2.5-4.9); POTASSIUM 4.1 mmol/L (3.5-5.1); SODIUM SERUM 135 mmol/L (136-145)
[2019-03-21 08:08] LABS: UREA NITROGEN, BLOOD 18 mg/dL (7-18)
[2019-03-21 08:28] VITALS: BP 131/83
[2019-03-21 08:40] LABS: BAND NEUTROPHILS % (MANUAL) 1 % (0-5); EOSINOPHILS % (MANUAL) 1 % (1-6); LYMPHOCYTES % (MANUAL) 24 % (22-44); MONOCYTES % (MANUAL) 5 % (2-9); SEGMENTED NEUTROPHILS % 69 % (40-70)
[2019-03-21] MEDS: GABAPENTIN 300 MG CAPSULE PO SCH ×3 (08:58→16:30)
[2019-03-21] MEDS: SERTRALINE HCL 50 MG TABLET PO SCH (08:59)
[2019-03-21] MEDS: NICOTINE 21 MG/24 HOUR PATCH TD SCH (09:08)
[2019-03-21] MEDS: LORazepam 2 MG TABLET PO PRN ×2 (09:37→16:30)
[2019-03-21] MEDS: MAGNESIUM OXIDE 400 MG TABLET PO SCH ×2 (09:37→16:30)
[2019-03-21 16:05] VITALS: BP 114/71
[2019-03-21] MEDS: ZOLPIDEM TARTRATE 10 MG TABLET PO PRN (20:39)
[2019-03-21] MEDS: QUEtiapine FUMARATE 300 MG TABLET PO SCH (20:39)
[2019-03-22 06:34] VITALS: BP 112/71
[2019-03-22 08:20] VITALS: BP 127/78
[2019-03-22] MEDS: NICOTINE 21 MG/24 HOUR PATCH TD SCH (08:33)
[2019-03-22] MEDS: MAGNESIUM OXIDE 400 MG TABLET PO SCH ×2 (08:35→16:03)
[2019-03-22] MEDS: GABAPENTIN 300 MG CAPSULE PO SCH ×3 (08:37→16:03)
[2019-03-22] MEDS: SERTRALINE HCL 50 MG TABLET PO SCH (08:37)
[2019-03-22] MEDS: LORazepam 2 MG TABLET PO PRN ×2 (08:44→16:21)
[2019-03-22 16:14] VITALS: BP 121/88
[2019-03-22] MEDS: QUEtiapine FUMARATE 300 MG TABLET PO SCH (20:38)
[2019-03-23 06:36] VITALS: BP 125/78
[2019-03-23] MEDS: SERTRALINE HCL 50 MG TABLET PO SCH (08:34)
[2019-03-23] MEDS: LORazepam 2 MG TABLET PO PRN ×2 (08:34→14:17)
[2019-03-23] MEDS: NICOTINE 21 MG/24 HOUR PATCH TD SCH (08:35)
[2019-03-23] MEDS: GABAPENTIN 300 MG CAPSULE PO SCH ×3 (08:35→16:35)
[2019-03-23] MEDS: MAGNESIUM OXIDE 400 MG TABLET PO SCH ×2 (08:35→16:35)
[2019-03-23 08:37] VITALS: BP 132/75
[2019-03-23 16:20] VITALS: BP 133/88
[2019-03-23] MEDS: QUEtiapine FUMARATE 300 MG TABLET PO SCH (20:30)
[2019-03-23] MEDS: ZOLPIDEM TARTRATE 10 MG TABLET PO PRN (20:30)
[2019-03-24 06:01] VITALS: BP 135/78
[2019-03-24] MEDS: LORazepam 2 MG TABLET PO PRN (06:37)
[2019-03-24 08:15] VITALS: BP 139/75
[2019-03-24] MEDS: MAGNESIUM OXIDE 400 MG TABLET PO SCH ×2 (09:01→16:39)
[2019-03-24] MEDS: SERTRALINE HCL 50 MG TABLET PO SCH (09:01)
[2019-03-24] MEDS: GABAPENTIN 300 MG CAPSULE PO SCH ×3 (09:02→16:39)
[2019-03-24] MEDS: NICOTINE 21 MG/24 HOUR PATCH TD SCH (09:18)
[2019-03-24] MEDS ORDERED: LORazepam 2 MG TABLET PO PRN (11:00)
[2019-03-24] MEDS: LORazepam 1 MG TABLET PO PRN (11:28)
[2019-03-24 16:03] VITALS: BP 103/77
[2019-03-24] MEDS: QUEtiapine FUMARATE 300 MG TABLET PO SCH (20:13)
[2019-03-25 05:13] VITALS: BP 110/66
[2019-03-25] MEDS: LORazepam 1 MG TABLET PO PRN ×2 (08:08→14:47)
[2019-03-25] MEDS: SERTRALINE HCL 50 MG TABLET PO SCH (08:08)
[2019-03-25] MEDS: GABAPENTIN 300 MG CAPSULE PO SCH ×3 (08:09→16:13)
[2019-03-25] MEDS: MAGNESIUM OXIDE 400 MG TABLET PO SCH ×2 (08:09→16:13)
[2019-03-25 08:29] VITALS: BP 101/64
[2019-03-25] MEDS: NICOTINE 21 MG/24 HOUR PATCH TD SCH (08:31)
[2019-03-25 16:13] VITALS: BP 107/74
[2019-03-25] MEDS: ZOLPIDEM TARTRATE 10 MG TABLET PO PRN (20:33)
[2019-03-25] MEDS: QUEtiapine FUMARATE 300 MG TABLET PO SCH (20:33)
[2019-03-26 05:51] VITALS: BP 128/91
[2019-03-26] MEDS: LORazepam 1 MG TABLET PO PRN (06:05)
[2019-03-26 08:55] VITALS: BP 114/76
[2019-03-26] MEDS ORDERED: SERTRALINE HCL 100 MG TABLET PO SCH (09:00)
[2019-03-26] MEDS: MAGNESIUM OXIDE 400 MG TABLET PO SCH (09:43)
[2019-03-26] MEDS: GABAPENTIN 300 MG CAPSULE PO SCH ×2 (09:43→12:58)
[2019-03-26] MEDS: NICOTINE 21 MG/24 HOUR PATCH TD SCH (09:53)
[2019-03-26] MEDS ORDERED: QUET300T2 PO (10:27)
[2019-03-26] MEDS ORDERED: SERT100T12 PO (10:28)
[2019-03-26] MEDS ORDERED: MAGOX PO (10:59)
== END 2019-03-26 13:11 | disposition home or self-care (01) | DRG 750 ==
LOC: EMS 16:00 → B3A 19:22
PROVIDERS: ADMIT Psychiatry & Neurology Psychiatry; ATTEND Psychiatry & Neurology Psychiatry
DX: F25.1 Schizoaffective disorder, depressive type (principal); J43.9 Emphysema, unspecified; F10.10 Alcohol abuse, uncomplicated; F12.90 Cannabis use, unspecified, uncomplicated; F41.9 Anxiety disorder, unspecified; G47.00 Insomnia, unspecified; I10 Essential (primary) hypertension; K59.00 Constipation, unspecified
CPT/HCPCS: 83735; 84100; 84439; 84443; 85007; G0480

== ENCOUNTER 2019-04-10 15:52 | Inpatient (IN) | payer MEDICAID ==
[~2019-04-10] VITALS: Ht 190.5 cm; Wt 87.1 kg
[~2019-04-10 15:52] MED LIST changes: -DULO30CA2 PO; +GABA-531 PO; -GABA-533 PO; -LISI-660 PO; +MAGOX PO; -QUET200T PO; +QUET300T2 PO; +SERT100T12 PO
[2019-04-10] MEDS ORDERED: QUEtiapine FUMARATE 300 MG TABLET PO ONE (16:30)
[2019-04-10 16:59] LABS: BASOPHILS % (AUTO) 1.3 % (0.0-2.0); EOSINOPHILS % (AUTO) 1.1 % (1.0-6.0); HEMATOCRIT 43.2 % (41-53); HEMOGLOBIN 14.7 g/dL (13.5-17.5); LYMPHOCYTES % (AUTO) 28.8 % (22.0-44.0); MEAN CORPUSCULAR HEMOGLOBIN 34.4 pg (26.0-34.0); MEAN CORPUSCULAR HGB CONC 34.1 G/dL (31.0-37.0); MEAN CORPUSCULAR VOLUME 101 fL (80-100); MONOCYTES # (AUTO) 0.6 K/uL (0.1-1.0); MONOCYTES % (AUTO) 9.1 % (2.0-9.0); NEUTROPHILS # (AUTO) 4.1 K/uL (1.8-7.7); NEUTROPHILS % (AUTO) 59.7 % (40.0-70.0); PLATELET COUNT (AUTO) 264 K/uL (150-450); RED BLOOD CELL COUNT(AUTO) 4.28 MIL/uL (4.50-5.90); RED CELL DISTRIBUTION WIDTH 14.7 % (11.5-14.5)
[2019-04-10 17:11] LABS: ANION GAP 7 mmol/L (8-16); CALCIUM, TOTAL 8.5 mg/dL (8.8-10.5); CARBON DIOXIDE 28 mmol/L (22-29); CHLORIDE 101 mmol/L (98-107); CREATININE 0.82 mg/dL (0.60-1.30); GLOMERULAR FILTR. RATE CALC > 60 mL/min (>60); GLUCOSE,RANDOM 95 mg/dL (70-110); POTASSIUM 3.9 mmol/L (3.5-5.1); SODIUM SERUM 136 mmol/L (136-145); UREA NITROGEN, BLOOD 19 mg/dL (7-18)
[2019-04-10 17:17] LABS: ALANINE AMINOTRANSFERASE 47 U/L (12-78); ALBUMIN 3.3 g/dL (3.4-5.0); ALKALINE PHOSPHATASE 57 U/L (46-116); ASPARTATE AMINOTRANSFERASE 34 U/L (15-37); BILIRUBIN,TOTAL 0.3 mg/dL (0.1-1.0); TOTAL PROTEIN, SERUM 6.5 g/dL (6.4-8.2)
[2019-04-10 19:10] LABS: AMPHET/METH SCREEN,URINE NEGATIVE (NEGATIVE); BARBITURATE SCREEN, URINE NEGATIVE (NEGATIVE); BENZODIAZEPINES SCREEN,URINE NEGATIVE (NEGATIVE); CANNABINOID SCREEN,URINE NEGATIVE (NEGATIVE); COCAINE SCREEN,URINE NEGATIVE (NEGATIVE); METHADONE SCREEN, URINE NEGATIVE (NEGATIVE); OPIATE SCREEN,URINE NEGATIVE (NEGATIVE)
[2019-04-10 19:11] LABS: PHENCYCLIDINE SCREEN,URINE NEGATIVE (NEGATIVE)
[2019-04-10] MEDS: GABAPENTIN 300 MG CAPSULE PO SCH (19:49)
[2019-04-10 20:21] VITALS: BP 109/69
[2019-04-10 20:29] VITALS: BP 109/69
[2019-04-11 08:28] VITALS: BP 111/85
[2019-04-11] MEDS: GABAPENTIN 300 MG CAPSULE PO SCH ×3 (09:00→16:26)
[2019-04-11] MEDS ORDERED: SERTRALINE HCL 100 MG TABLET PO SCH (11:00)
[2019-04-11] MEDS: SERTRALINE HCL 100 MG TABLET PO SCH (11:49)
[2019-04-11] MEDS: LORazepam 2 MG TABLET PO PRN ×2 (12:17→17:59)
[2019-04-11] MEDS ORDERED: GABAPENTIN 300 MG CAPSULE PO SCH (13:00)
[2019-04-11 16:00] VITALS: BP 118/72
[2019-04-11] MEDS ORDERED: DOCUSATE SODIUM 100 MG CAPSULE PO PRN (19:30)
[2019-04-11] MEDS ORDERED: MAG HYDROX/AL HYDROX/SIMETH ES 30 ML SUSPENSION UDCUP PO PRN (19:30)
[2019-04-11] MEDS ORDERED: PETROLATUM,WHITE 28 GM JELLY TP PRN (19:30)
[2019-04-11] MEDS ORDERED: ALBUTEROL SULFATE HFA 90 MCG/PUFF 8 GM INHALER IH PRN (19:30)
[2019-04-11] MEDS ORDERED: CloNIDine HCL 0.1 MG TABLET PO PRN (19:30)
[2019-04-11] MEDS ORDERED: ONDANSETRON HCL 4 MG TABLET PO PRN (19:30)
[2019-04-11] MEDS ORDERED: OMEPRAZOLE 20 MG CAPSULE PO PRN (19:30)
[2019-04-11] MEDS ORDERED: BACITRACIN 28.4 GM OINTMENT TP PRN (19:30)
[2019-04-11] MEDS ORDERED: IBUPROFEN 600 MG TABLET PO PRN (19:30)
[2019-04-11] MEDS ORDERED: BENZOCAINE/MENTHOL LOZENGE MM PRN (19:30)
[2019-04-11] MEDS ORDERED: MAGNESIUM HYDROXIDE SUSPENSION 30 ML UDCUP PO PRN (19:30)
[2019-04-11] MEDS ORDERED: LOPERAMIDE HCL 2 MG CAPSULE PO PRN (19:30)
[2019-04-11] MEDS: QUEtiapine FUMARATE 300 MG TABLET PO SCH (20:33)
[2019-04-11] MEDS ORDERED: QUEtiapine FUMARATE 300 MG TABLET PO SCH (21:00)
[2019-04-12 08:00] VITALS: BP 124/81
[2019-04-12] MEDS: QUEtiapine FUMARATE 100 MG TABLET PO PRN (08:30)
[2019-04-12] MEDS: LORazepam 2 MG TABLET PO PRN ×2 (08:30→17:21)
[2019-04-12] MEDS: GABAPENTIN 300 MG CAPSULE PO SCH ×3 (08:31→16:38)
[2019-04-12] MEDS: SERTRALINE HCL 100 MG TABLET PO SCH (08:31)
[2019-04-12] MEDS: MAGNESIUM OXIDE 400 MG TABLET PO SCH ×2 (08:31→16:38)
[2019-04-12] MEDS: NICOTINE 21 MG/24 HOUR PATCH TD SCH (09:10)
[2019-04-12 18:24] VITALS: BP 119/79
[2019-04-12] MEDS: QUEtiapine FUMARATE 300 MG TABLET PO SCH (20:41)
[2019-04-13 09:04] VITALS: BP 117/82
[2019-04-13] MEDS: LORazepam 2 MG TABLET PO PRN ×3 (09:08→21:14)
[2019-04-13] MEDS: QUEtiapine FUMARATE 100 MG TABLET PO PRN (09:08)
[2019-04-13] MEDS: MAGNESIUM OXIDE 400 MG TABLET PO SCH ×2 (09:08→16:44)
[2019-04-13] MEDS: GABAPENTIN 300 MG CAPSULE PO SCH ×3 (09:08→16:44)
[2019-04-13] MEDS: SERTRALINE HCL 100 MG TABLET PO SCH (09:08)
[2019-04-13] MEDS: NICOTINE 21 MG/24 HOUR PATCH TD SCH (09:09)
[2019-04-13 17:23] VITALS: BP 109/77
[2019-04-13] MEDS: QUEtiapine FUMARATE 300 MG TABLET PO SCH (21:07)
[2019-04-13 21:13] VITALS: BP 119/89
[2019-04-14 09:27] VITALS: BP 120/77
[2019-04-14] MEDS: GABAPENTIN 300 MG CAPSULE PO SCH ×3 (09:44→16:29)
[2019-04-14] MEDS: MAGNESIUM OXIDE 400 MG TABLET PO SCH ×2 (09:44→16:30)
[2019-04-14] MEDS: SERTRALINE HCL 100 MG TABLET PO SCH (09:44)
[2019-04-14] MEDS: LORazepam 2 MG TABLET PO PRN ×2 (09:49→14:14)
[2019-04-14] MEDS: NICOTINE 21 MG/24 HOUR PATCH TD SCH (09:51)
[2019-04-14 19:13] VITALS: BP 111/71
[2019-04-14] MEDS: QUEtiapine FUMARATE 300 MG TABLET PO SCH (20:42)
[2019-04-15] MEDS: LORazepam 2 MG TABLET PO PRN ×2 (08:17→13:22)
[2019-04-15] MEDS: GABAPENTIN 300 MG CAPSULE PO SCH ×3 (08:17→16:13)
[2019-04-15] MEDS: QUEtiapine FUMARATE 100 MG TABLET PO PRN ×2 (08:17→16:23)
[2019-04-15] MEDS: NICOTINE 21 MG/24 HOUR PATCH TD SCH (08:18)
[2019-04-15] MEDS: SERTRALINE HCL 100 MG TABLET PO SCH (08:18)
[2019-04-15] MEDS: MAGNESIUM OXIDE 400 MG TABLET PO SCH ×2 (08:18→16:13)
[2019-04-15 08:52] VITALS: BP 125/78
[2019-04-15 18:30] VITALS: BP 110/76
[2019-04-15] MEDS: QUEtiapine FUMARATE 300 MG TABLET PO SCH (20:43)
[2019-04-16] MEDS: MAGNESIUM OXIDE 400 MG TABLET PO SCH ×2 (08:22→16:35)
[2019-04-16] MEDS: SERTRALINE HCL 100 MG TABLET PO SCH (08:22)
[2019-04-16] MEDS: NICOTINE 21 MG/24 HOUR PATCH TD SCH (08:22)
[2019-04-16] MEDS: GABAPENTIN 300 MG CAPSULE PO SCH ×3 (08:22→16:35)
[2019-04-16 08:36] VITALS: BP 119/73
[2019-04-16] MEDS: LORazepam 2 MG TABLET PO PRN ×2 (09:41→14:58)
[2019-04-16] MEDS: QUEtiapine FUMARATE 100 MG TABLET PO PRN ×2 (09:41→16:34)
[2019-04-16 16:00] VITALS: BP 101/64
[2019-04-16] MEDS: ACETAMINOPHEN 325 MG TABLET PO PRN (16:34)
[2019-04-16] MEDS: QUEtiapine FUMARATE 300 MG TABLET PO SCH (20:22)
[2019-04-17] MEDS: NICOTINE 21 MG/24 HOUR PATCH TD SCH (09:29)
[2019-04-17] MEDS: GABAPENTIN 300 MG CAPSULE PO SCH ×3 (09:29→16:56)
[2019-04-17] MEDS: MAGNESIUM OXIDE 400 MG TABLET PO SCH ×2 (09:29→16:56)
[2019-04-17] MEDS: SERTRALINE HCL 100 MG TABLET PO SCH (09:29)
[2019-04-17] MEDS: LORazepam 2 MG TABLET PO PRN ×2 (09:30→13:43)
[2019-04-17] MEDS: QUEtiapine FUMARATE 100 MG TABLET PO PRN ×2 (09:30→13:45)
[2019-04-17 10:52] VITALS: BP 123/88
[2019-04-17 20:14] VITALS: BP 111/85
[2019-04-17] MEDS: QUEtiapine FUMARATE 300 MG TABLET PO SCH (20:58)
[2019-04-18] MEDS: QUEtiapine FUMARATE 100 MG TABLET PO PRN ×2 (06:27→16:06)
[2019-04-18] MEDS: LORazepam 2 MG TABLET PO PRN ×3 (06:27→16:06)
[2019-04-18] MEDS: NICOTINE 21 MG/24 HOUR PATCH TD SCH (08:55)
[2019-04-18] MEDS: GABAPENTIN 300 MG CAPSULE PO SCH ×3 (08:55→17:36)
[2019-04-18] MEDS: MAGNESIUM OXIDE 400 MG TABLET PO SCH ×2 (08:55→17:36)
[2019-04-18] MEDS: SERTRALINE HCL 100 MG TABLET PO SCH (08:57)
[2019-04-18 10:41] VITALS: BP 100/62
[2019-04-18 18:46] VITALS: BP 126/96
[2019-04-18] MEDS: QUEtiapine FUMARATE 300 MG TABLET PO SCH (21:29)
[2019-04-19] MEDS: QUEtiapine FUMARATE 100 MG TABLET PO PRN ×3 (06:41→16:21)
[2019-04-19] MEDS: LORazepam 2 MG TABLET PO PRN ×3 (06:41→16:21)
[2019-04-19] MEDS: SERTRALINE HCL 100 MG TABLET PO SCH (09:21)
[2019-04-19] MEDS: MAGNESIUM OXIDE 400 MG TABLET PO SCH ×2 (09:21→16:21)
[2019-04-19] MEDS: GABAPENTIN 300 MG CAPSULE PO SCH ×3 (09:21→16:21)
[2019-04-19] MEDS: NICOTINE 21 MG/24 HOUR PATCH TD SCH (09:26)
[2019-04-19 12:16] VITALS: BP 112/79
[2019-04-19 17:48] VITALS: BP 120/83
[2019-04-19] MEDS: QUEtiapine FUMARATE 300 MG TABLET PO SCH (20:44)
[2019-04-20] MEDS: QUEtiapine FUMARATE 100 MG TABLET PO PRN ×2 (05:50→10:28)
[2019-04-20] MEDS: LORazepam 2 MG TABLET PO PRN ×3 (05:50→16:03)
[2019-04-20 06:07] VITALS: BP 109/83
[2019-04-20] MEDS: GABAPENTIN 300 MG CAPSULE PO SCH ×3 (10:19→16:03)
[2019-04-20] MEDS: SERTRALINE HCL 100 MG TABLET PO SCH (10:19)
[2019-04-20] MEDS: MAGNESIUM OXIDE 400 MG TABLET PO SCH ×2 (10:19→16:03)
[2019-04-20] MEDS: NICOTINE 21 MG/24 HOUR PATCH TD SCH (10:21)
[2019-04-20 10:43] VITALS: BP 100/64
[2019-04-20 17:06] VITALS: BP 110/81
[2019-04-20] MEDS: QUEtiapine FUMARATE 300 MG TABLET PO SCH (20:08)
[2019-04-21 06:00] VITALS: BP 103/70
[2019-04-21] MEDS: LORazepam 2 MG TABLET PO PRN ×3 (06:15→16:11)
[2019-04-21] MEDS: QUEtiapine FUMARATE 100 MG TABLET PO PRN ×3 (06:15→16:11)
[2019-04-21] MEDS: GABAPENTIN 300 MG CAPSULE PO SCH ×3 (09:33→16:11)
[2019-04-21] MEDS: MAGNESIUM OXIDE 400 MG TABLET PO SCH ×2 (09:33→16:11)
[2019-04-21] MEDS: NICOTINE 21 MG/24 HOUR PATCH TD SCH (09:34)
[2019-04-21] MEDS: SERTRALINE HCL 100 MG TABLET PO SCH (09:34)
[2019-04-21 09:39] VITALS: BP 105/65
[2019-04-21 17:41] VITALS: BP 121/85
[2019-04-21] MEDS: QUEtiapine FUMARATE 300 MG TABLET PO SCH (20:09)
[2019-04-22] MEDS: QUEtiapine FUMARATE 100 MG TABLET PO PRN ×2 (05:18→14:10)
[2019-04-22] MEDS: LORazepam 2 MG TABLET PO PRN ×3 (05:18→14:10)
[2019-04-22] MEDS: GABAPENTIN 300 MG CAPSULE PO SCH ×3 (08:16→15:43)
[2019-04-22] MEDS: MAGNESIUM OXIDE 400 MG TABLET PO SCH ×2 (08:16→15:42)
[2019-04-22] MEDS: SERTRALINE HCL 100 MG TABLET PO SCH (08:16)
[2019-04-22] MEDS: NICOTINE 21 MG/24 HOUR PATCH TD SCH (08:21)
[2019-04-22 08:30] VITALS: BP 102/58
[2019-04-22 14:10] VITALS: BP 118/74
[2019-04-22] MEDS: ACETAMINOPHEN 325 MG TABLET PO PRN (14:10)
[2019-04-22 17:06] VITALS: BP 94/61
[2019-04-22] MEDS: QUEtiapine FUMARATE 300 MG TABLET PO SCH (20:03)
[2019-04-23] MEDS: LORazepam 2 MG TABLET PO PRN ×3 (07:02→16:16)
[2019-04-23] MEDS: MAGNESIUM OXIDE 400 MG TABLET PO SCH ×2 (09:38→16:42)
[2019-04-23] MEDS: NICOTINE 21 MG/24 HOUR PATCH TD SCH (09:38)
[2019-04-23] MEDS: SERTRALINE HCL 100 MG TABLET PO SCH (09:38)
[2019-04-23] MEDS: GABAPENTIN 300 MG CAPSULE PO SCH ×3 (09:38→16:42)
[2019-04-23 10:23] VITALS: BP 110/73
[2019-04-23] MEDS: QUEtiapine FUMARATE 100 MG TABLET PO PRN ×2 (11:08→16:16)
[2019-04-23] MEDS: ACETAMINOPHEN 325 MG TABLET PO PRN (11:08)
[2019-04-23 16:18] VITALS: BP 118/85
[2019-04-23] MEDS: QUEtiapine FUMARATE 300 MG TABLET PO SCH (20:19)
[2019-04-24 05:55] VITALS: BP 109/77
[2019-04-24] MEDS: LORazepam 2 MG TABLET PO PRN ×3 (06:00→14:24)
[2019-04-24] MEDS: MAGNESIUM OXIDE 400 MG TABLET PO SCH ×2 (08:53→16:27)
[2019-04-24] MEDS: SERTRALINE HCL 100 MG TABLET PO SCH (08:53)
[2019-04-24] MEDS: GABAPENTIN 300 MG CAPSULE PO SCH ×3 (08:53→16:27)
[2019-04-24] MEDS: NICOTINE 21 MG/24 HOUR PATCH TD SCH (08:54)
[2019-04-24 10:39] VITALS: BP 108/65
[2019-04-24 17:50] VITALS: BP 115/75
[2019-04-24] MEDS: QUEtiapine FUMARATE 300 MG TABLET PO SCH (20:17)
[2019-04-24] MEDS: ZOLPIDEM TARTRATE 10 MG TABLET PO PRN (20:19)
[2019-04-25] MEDS: LORazepam 2 MG TABLET PO PRN ×3 (05:09→16:01)
[2019-04-25 05:12] VITALS: BP 101/72
[2019-04-25] MEDS: QUEtiapine FUMARATE 100 MG TABLET PO PRN ×2 (08:48→19:41)
[2019-04-25] MEDS: ACETAMINOPHEN 325 MG TABLET PO PRN ×2 (08:48→16:02)
[2019-04-25] MEDS: GABAPENTIN 300 MG CAPSULE PO SCH ×3 (08:48→16:01)
[2019-04-25] MEDS: SERTRALINE HCL 100 MG TABLET PO SCH (08:48)
[2019-04-25] MEDS: MAGNESIUM OXIDE 400 MG TABLET PO SCH ×2 (08:49→16:01)
[2019-04-25] MEDS: NICOTINE 21 MG/24 HOUR PATCH TD SCH (09:12)
[2019-04-25 09:37] VITALS: BP 114/79
[2019-04-25 16:00] VITALS: BP 100/72
[2019-04-25] MEDS: ZOLPIDEM TARTRATE 10 MG TABLET PO PRN (19:42)
[2019-04-25] MEDS: QUEtiapine FUMARATE 300 MG TABLET PO SCH (21:00)
[2019-04-26] MEDS: QUEtiapine FUMARATE 100 MG TABLET PO PRN ×2 (04:38→09:14)
[2019-04-26] MEDS: LORazepam 2 MG TABLET PO PRN ×2 (04:38→09:14)
[2019-04-26] MEDS: NICOTINE 21 MG/24 HOUR PATCH TD SCH (08:50)
[2019-04-26] MEDS: MAGNESIUM OXIDE 400 MG TABLET PO SCH (08:50)
[2019-04-26] MEDS: SERTRALINE HCL 100 MG TABLET PO SCH (08:50)
[2019-04-26] MEDS: GABAPENTIN 300 MG CAPSULE PO SCH ×2 (08:50→12:44)
[2019-04-26 09:29] VITALS: BP 108/86
== END 2019-04-26 14:30 | disposition home or self-care (01) | DRG 885 ==
LOC: EMS 15:53 → 3EI 19:03
PROVIDERS: ADMIT Psychiatry & Neurology Psychiatry; ATTEND Psychiatry & Neurology Psychiatry
DX: F25.9 Schizoaffective disorder, unspecified (principal); R45.851 Suicidal ideations; F32.9 Major depressive disorder, single episode, unspecified; G47.00 Insomnia, unspecified; F10.10 Alcohol abuse, uncomplicated; F41.9 Anxiety disorder, unspecified; I10 Essential (primary) hypertension; J43.9 Emphysema, unspecified; K59.00 Constipation, unspecified; R45.850 Homicidal ideations; F17.210 Nicotine dependence, cigarettes, uncomplicated; Z91.14 Patient's other noncompliance with medication regimen; Z91.19 Patient's noncompliance with other medical treatment and regimen
CPT/HCPCS: 87081; G0480

== ENCOUNTER 2019-05-04 15:07 | Inpatient (IN) | payer MEDICAID ==
[~2019-05-04] VITALS: Ht 190.5 cm; Wt 89.8 kg
[2019-05-04 17:54] LABS: EOSINOPHILS % (AUTO) 3.4 % (1.0-6.0); HEMATOCRIT 40.4 % (41-53); HEMOGLOBIN 13.7 g/dL (13.5-17.5); LYMPHOCYTES % (AUTO) 26.7 % (22.0-44.0); MEAN CORPUSCULAR HEMOGLOBIN 33.9 pg (26.0-34.0); MEAN CORPUSCULAR HGB CONC 33.8 G/dL (31.0-37.0); MEAN CORPUSCULAR VOLUME 100 fL (80-100); MONOCYTES # (AUTO) 0.7 K/uL (0.1-1.0); MONOCYTES % (AUTO) 9.9 % (2.0-9.0); NEUTROPHILS # (AUTO) 4.3 K/uL (1.8-7.7); PLATELET COUNT (AUTO) 273 K/uL (150-450); RED BLOOD CELL COUNT(AUTO) 4.03 MIL/uL (4.50-5.90); RED CELL DISTRIBUTION WIDTH 15.2 % (11.5-14.5)
[2019-05-04 18:06] LABS: ANION GAP 7 mmol/L (8-16); CALCIUM, TOTAL 9.2 mg/dL (8.8-10.5); CARBON DIOXIDE 28 mmol/L (22-29); CHLORIDE 103 mmol/L (98-107); CREATININE 0.86 mg/dL (0.60-1.30); GLOMERULAR FILTR. RATE CALC > 60 mL/min (>60); GLUCOSE,RANDOM 95 mg/dL (70-110); POTASSIUM 4.3 mmol/L (3.5-5.1); SODIUM SERUM 138 mmol/L (136-145); UREA NITROGEN, BLOOD 11 mg/dL (7-18)
[2019-05-04 18:11] LABS: ALANINE AMINOTRANSFERASE 28 U/L (12-78); ALBUMIN 3.7 g/dL (3.4-5.0); ALKALINE PHOSPHATASE 88 U/L (46-116); ASPARTATE AMINOTRANSFERASE 21 U/L (15-37); BILIRUBIN,TOTAL 0.3 mg/dL (0.1-1.0)
[2019-05-04 18:12] LABS: ACETAMINOPHEN < 2 mcg/mL (10-30); SALICYLATE 5.5 mg/dL (2.8-20.0)
[2019-05-04] MEDS ORDERED: ZOLPIDEM TARTRATE 10 MG TABLET PO PRN (20:00)
[2019-05-04 22:07] VITALS: BP 140/86
[2019-05-04 22:08] LABS: AMPHET/METH SCREEN,URINE NEGATIVE (NEGATIVE); BARBITURATE SCREEN, URINE NEGATIVE (NEGATIVE); BENZODIAZEPINES SCREEN,URINE NEGATIVE (NEGATIVE); CANNABINOID SCREEN,URINE NEGATIVE (NEGATIVE); COCAINE SCREEN,URINE NEGATIVE (NEGATIVE); METHADONE SCREEN, URINE NEGATIVE (NEGATIVE); OPIATE SCREEN,URINE NEGATIVE (NEGATIVE)
[2019-05-04 22:10] LABS: PHENCYCLIDINE SCREEN,URINE NEGATIVE (NEGATIVE)
[2019-05-04] MEDS: QUEtiapine FUMARATE 300 MG TABLET PO SCH (22:29)
[2019-05-04] MEDS: GABAPENTIN 300 MG CAPSULE PO SCH (22:31)
[2019-05-04] MEDS: LORazepam 2 MG TABLET PO PRN (22:35)
[2019-05-05] MEDS ORDERED: SERTRALINE HCL 100 MG TABLET PO SCH (09:00)
[2019-05-05 09:03] VITALS: BP 146/84
[2019-05-05] MEDS ORDERED: MAGNESIUM HYDROXIDE SUSPENSION 30 ML UDCUP PO PRN (10:00)
[2019-05-05] MEDS ORDERED: DOCUSATE SODIUM 100 MG CAPSULE PO PRN (10:00)
[2019-05-05] MEDS ORDERED: BACITRACIN 28.4 GM OINTMENT TP PRN (10:00)
[2019-05-05] MEDS ORDERED: ALBUTEROL SULFATE HFA 90 MCG/PUFF 8 GM INHALER IH PRN (10:00)
[2019-05-05] MEDS ORDERED: PETROLATUM,WHITE 28 GM JELLY TP PRN (10:00)
[2019-05-05] MEDS ORDERED: BENZOCAINE/MENTHOL LOZENGE MM PRN (10:00)
[2019-05-05] MEDS ORDERED: CloNIDine HCL 0.1 MG TABLET PO PRN (10:00)
[2019-05-05] MEDS ORDERED: MAG HYDROX/AL HYDROX/SIMETH ES 30 ML SUSPENSION UDCUP PO PRN (10:00)
[2019-05-05] MEDS ORDERED: ONDANSETRON HCL 4 MG TABLET PO PRN (10:00)
[2019-05-05] MEDS ORDERED: OMEPRAZOLE 20 MG CAPSULE PO PRN (10:00)
[2019-05-05] MEDS ORDERED: IBUPROFEN 600 MG TABLET PO PRN (10:00)
[2019-05-05] MEDS ORDERED: LOPERAMIDE HCL 2 MG CAPSULE PO PRN (10:00)
[2019-05-05] MEDS ORDERED: ACETAMINOPHEN 325 MG TABLET PO PRN (10:00)
[2019-05-05] MEDS: GABAPENTIN 300 MG CAPSULE PO SCH ×3 (10:36→16:29)
[2019-05-05] MEDS: NICOTINE 14 MG/24 HOUR PATCH TD SCH ×2 (10:38→10:39)
[2019-05-05] MEDS: LORazepam 2 MG TABLET PO PRN (13:51)
[2019-05-05] MEDS: HALOPERIDOL 5 MG TABLET PO PRN (13:53)
[2019-05-05 16:54] VITALS: BP 126/82
[2019-05-05] MEDS: QUEtiapine FUMARATE 300 MG TABLET PO SCH (20:25)
[2019-05-06] MEDS: GABAPENTIN 300 MG CAPSULE PO SCH ×3 (09:41→16:19)
[2019-05-06] MEDS: NICOTINE 14 MG/24 HOUR PATCH TD SCH (09:41)
[2019-05-06] MEDS: SERTRALINE HCL 100 MG TABLET PO SCH (09:41)
[2019-05-06] MEDS: HALOPERIDOL 5 MG TABLET PO PRN ×2 (09:46→16:26)
[2019-05-06] MEDS: LORazepam 2 MG TABLET PO PRN ×2 (09:46→16:26)
[2019-05-06 11:06] VITALS: BP 124/71
[2019-05-06] MEDS: MUPIROCIN CALCIUM 2% 22 GM OINTMENT NASAL SCH ×2 (11:45→16:19)
[2019-05-06 17:17] VITALS: BP 122/77
[2019-05-06] MEDS: QUEtiapine FUMARATE 300 MG TABLET PO SCH (20:34)
[2019-05-07 08:30] VITALS: BP 141/90
[2019-05-07] MEDS: MUPIROCIN CALCIUM 2% 22 GM OINTMENT NASAL SCH ×2 (09:12→16:06)
[2019-05-07] MEDS: NICOTINE 14 MG/24 HOUR PATCH TD SCH (09:12)
[2019-05-07] MEDS: SERTRALINE HCL 100 MG TABLET PO SCH (09:13)
[2019-05-07] MEDS: LORazepam 2 MG TABLET PO PRN ×2 (09:13→16:06)
[2019-05-07] MEDS: HALOPERIDOL 5 MG TABLET PO PRN ×2 (09:13→16:06)
[2019-05-07] MEDS: GABAPENTIN 300 MG CAPSULE PO SCH ×3 (09:13→16:06)
[2019-05-07] MEDS: QUEtiapine FUMARATE 300 MG TABLET PO SCH (20:34)
[2019-05-07 22:09] VITALS: BP 128/93
[2019-05-08 08:30] VITALS: BP 109/70
[2019-05-08] MEDS: HALOPERIDOL 5 MG TABLET PO PRN (08:58)
[2019-05-08] MEDS: LORazepam 2 MG TABLET PO PRN (08:58)
[2019-05-08] MEDS: SERTRALINE HCL 100 MG TABLET PO SCH (08:59)
[2019-05-08] MEDS: GABAPENTIN 300 MG CAPSULE PO SCH ×3 (08:59→16:11)
[2019-05-08] MEDS: NICOTINE 14 MG/24 HOUR PATCH TD SCH (09:01)
[2019-05-08] MEDS: MUPIROCIN CALCIUM 2% 22 GM OINTMENT NASAL SCH ×2 (09:38→16:11)
[2019-05-08 16:54] VITALS: BP 102/79
[2019-05-08] MEDS: QUEtiapine FUMARATE 300 MG TABLET PO SCH (20:59)
[2019-05-09] MEDS: LORazepam 2 MG TABLET PO PRN ×3 (06:57→16:16)
[2019-05-09] MEDS: HALOPERIDOL 5 MG TABLET PO PRN (06:57)
[2019-05-09] MEDS: GABAPENTIN 300 MG CAPSULE PO SCH ×3 (08:35→16:12)
[2019-05-09] MEDS: MUPIROCIN CALCIUM 2% 22 GM OINTMENT NASAL SCH ×2 (08:36→16:11)
[2019-05-09] MEDS: SERTRALINE HCL 100 MG TABLET PO SCH (08:36)
[2019-05-09] MEDS: NICOTINE 14 MG/24 HOUR PATCH TD SCH (08:36)
[2019-05-09 11:03] VITALS: BP 137/91
[2019-05-09 17:29] VITALS: BP 125/84
[2019-05-09 17:31] VITALS: BP 128/84
[2019-05-09] MEDS: QUEtiapine FUMARATE 300 MG TABLET PO SCH (20:48)
[2019-05-10] MEDS: LORazepam 2 MG TABLET PO PRN ×3 (06:09→17:52)
[2019-05-10] MEDS: HALOPERIDOL 5 MG TABLET PO PRN ×3 (06:09→17:52)
[2019-05-10] MEDS: SERTRALINE HCL 100 MG TABLET PO SCH (08:46)
[2019-05-10] MEDS: GABAPENTIN 300 MG CAPSULE PO SCH ×3 (08:46→17:06)
[2019-05-10] MEDS: NICOTINE 21 MG/24 HOUR PATCH TD SCH (08:47)
[2019-05-10] MEDS: MUPIROCIN CALCIUM 2% 22 GM OINTMENT NASAL SCH ×2 (08:47→17:06)
[2019-05-10 11:14] VITALS: BP 105/73
[2019-05-10 17:18] VITALS: BP 124/72
[2019-05-10] MEDS ORDERED: QUEtiapine FUMARATE 200 MG TABLET PO SCH (21:00)
[2019-05-10 23:30] VITALS: BP 118/86
[2019-05-11] MEDS: LORazepam 2 MG TABLET PO PRN (05:00)
[2019-05-11] MEDS: HALOPERIDOL 5 MG TABLET PO PRN (05:00)
[2019-05-11 08:30] VITALS: BP 100/69
[2019-05-11] MEDS: SERTRALINE HCL 100 MG TABLET PO SCH (09:07)
[2019-05-11] MEDS: GABAPENTIN 300 MG CAPSULE PO SCH ×2 (09:07→12:26)
[2019-05-11] MEDS: NICOTINE 21 MG/24 HOUR PATCH TD SCH (09:08)
[2019-05-11] MEDS: MUPIROCIN CALCIUM 2% 22 GM OINTMENT NASAL SCH (09:09)
[2019-05-11] MEDS ORDERED: QUET400T PO (12:09)
== END 2019-05-11 16:00 | disposition home or self-care (01) | DRG 885 ==
LOC: EMS 15:09 → 3EI 20:30
PROVIDERS: ADMIT Psychiatry & Neurology Psychiatry; ATTEND Psychiatry & Neurology Psychiatry
DX: F25.9 Schizoaffective disorder, unspecified (principal); R45.851 Suicidal ideations; F10.239 Alcohol dependence with withdrawal, unspecified; Y90.0 Blood alcohol level of less than 20 mg/100 ml; J44.9 Chronic obstructive pulmonary disease, unspecified; F32.9 Major depressive disorder, single episode, unspecified; I10 Essential (primary) hypertension; F17.210 Nicotine dependence, cigarettes, uncomplicated; F12.90 Cannabis use, unspecified, uncomplicated; F19.90 Other psychoactive substance use, unspecified, uncomplicated; R56.9 Unspecified convulsions; G47.00 Insomnia, unspecified; K59.00 Constipation, unspecified; F41.9 Anxiety disorder, unspecified; R00.0 Tachycardia, unspecified; Z79.899 Other long term (current) drug therapy; Z71.6 Tobacco abuse counseling; Z91.5 Personal history of self-harm
CPT/HCPCS: 87081; G0480; G0481

== ENCOUNTER 2019-06-06 16:02 | Emergency (ER) | payer MEDICAID ==
[~2019-06-06] VITALS: Ht 193 cm; Wt 86.4 kg
[~2019-06-06 16:02] MED LIST changes: -MAGOX PO; -QUET300T2 PO; +QUET400T PO
[2019-06-06 17:25] LABS: BASOPHILS % (AUTO) 0.9 % (0.0-2.0); EOSINOPHILS % (AUTO) 3.2 % (1.0-6.0); HEMOGLOBIN 13.8 g/dL (13.5-17.5); LYMPHOCYTES # (AUTO) 1.7 K/uL (1.0-4.8); MEAN CORPUSCULAR HEMOGLOBIN 34.1 pg (26.0-34.0); MEAN CORPUSCULAR HGB CONC 34.5 G/dL (31.0-37.0); MEAN CORPUSCULAR VOLUME 99 fL (80-100); MONOCYTES # (AUTO) 0.4 K/uL (0.1-1.0); MONOCYTES % (AUTO) 8.5 % (2.0-9.0); NEUTROPHILS # (AUTO) 2.4 K/uL (1.8-7.7); NEUTROPHILS % (AUTO) 50.4 % (40.0-70.0); PLATELET COUNT (AUTO) 241 K/uL (150-450); RED BLOOD CELL COUNT(AUTO) 4.05 MIL/uL (4.50-5.90); RED CELL DISTRIBUTION WIDTH 14.7 % (11.5-14.5)
[2019-06-06 17:51] LABS: ANION GAP 10 mmol/L (8-16); CALCIUM, TOTAL 8.9 mg/dL (8.8-10.5); CARBON DIOXIDE 25 mmol/L (22-29); CHLORIDE 104 mmol/L (98-107); CREATININE 0.69 mg/dL (0.60-1.30); GLOMERULAR FILTR. RATE CALC > 60 mL/min (>60); GLUCOSE,RANDOM 102 mg/dL (70-110); POTASSIUM 3.8 mmol/L (3.5-5.1); SODIUM SERUM 139 mmol/L (136-145); UREA NITROGEN, BLOOD 8 mg/dL (7-18)
[2019-06-06 17:56] LABS: ALANINE AMINOTRANSFERASE 26 U/L (12-78); ALBUMIN 3.7 g/dL (3.4-5.0); ALKALINE PHOSPHATASE 92 U/L (46-116); ASPARTATE AMINOTRANSFERASE 19 U/L (15-37); BILIRUBIN,TOTAL 0.5 mg/dL (0.1-1.0); TOTAL PROTEIN, SERUM 6.5 g/dL (6.4-8.2)
[2019-06-06] MEDS ORDERED: LORazepam 2 MG/ML VIAL IVP ONE (19:45)
[2019-06-06] MEDS ORDERED: SODIUM CHLORIDE 0.9% 1,000 ML IV ONE (19:45)
[2019-06-06 20:06] LABS: AMPHET/METH SCREEN,URINE POSITIVE (NEGATIVE); BARBITURATE SCREEN, URINE NEGATIVE (NEGATIVE); BENZODIAZEPINES SCREEN,URINE NEGATIVE (NEGATIVE); CANNABINOID SCREEN,URINE NEGATIVE (NEGATIVE); COCAINE SCREEN,URINE NEGATIVE (NEGATIVE); METHADONE SCREEN, URINE NEGATIVE (NEGATIVE); OPIATE SCREEN,URINE NEGATIVE (NEGATIVE)
[2019-06-06 20:08] LABS: PHENCYCLIDINE SCREEN,URINE NEGATIVE (NEGATIVE)
[2019-06-06 21:32] VITALS: BP 119/84
== END 2019-06-06 21:52 | disposition home or self-care (01) ==
LOC: EMS 16:04
DX: F41.9 Anxiety disorder, unspecified (principal); F15.10 Other stimulant abuse, uncomplicated; F31.9 Bipolar disorder, unspecified; F20.9 Schizophrenia, unspecified; I10 Essential (primary) hypertension; J44.9 Chronic obstructive pulmonary disease, unspecified; F12.90 Cannabis use, unspecified, uncomplicated; F17.210 Nicotine dependence, cigarettes, uncomplicated; Z79.899 Other long term (current) drug therapy
CPT/HCPCS: 36415; 80053; 80307; 85025; 96374; 99283; 99406; G0480; J2060; J7030

== ENCOUNTER 2019-08-28 01:14 | Emergency (ER) | payer MEDICAID ==
[~2019-08-28] VITALS: Ht 190.5 cm; Wt 86.4 kg
[2019-08-28] MEDS ORDERED: SODIUM CHLORIDE 0.9% 1,000 ML IV ONE (03:15)
[2019-08-28 03:24] LABS: BASOPHILS % (AUTO) 0.3 % (0.0-2.0); EOSINOPHILS % (AUTO) 0.2 % (1.0-6.0); HEMOGLOBIN 15.3 g/dL (13.5-17.5); LYMPHOCYTES # (AUTO) 1.9 K/uL (1.0-4.8); MEAN CORPUSCULAR HEMOGLOBIN 33.6 pg (26.0-34.0); MEAN CORPUSCULAR HGB CONC 34.8 G/dL (31.0-37.0); MEAN CORPUSCULAR VOLUME 97 fL (80-100); MONOCYTES # (AUTO) 0.8 K/uL (0.1-1.0); MONOCYTES % (AUTO) 10.9 % (2.0-9.0); NEUTROPHILS # (AUTO) 4.7 K/uL (1.8-7.7); NEUTROPHILS % (AUTO) 63.6 % (40.0-70.0); PLATELET COUNT (AUTO) 268 K/uL (150-450); RED BLOOD CELL COUNT(AUTO) 4.56 MIL/uL (4.50-5.90); RED CELL DISTRIBUTION WIDTH 14.2 % (11.5-14.5)
[2019-08-28 03:37] LABS: ALANINE AMINOTRANSFERASE 20 U/L (12-78); ALBUMIN 3.9 g/dL (3.4-5.0); ALKALINE PHOSPHATASE 84 U/L (46-116); ASPARTATE AMINOTRANSFERASE 27 U/L (15-37); BILIRUBIN,TOTAL 0.4 mg/dL (0.1-1.0); CALCIUM, TOTAL 9.6 mg/dL (8.8-10.5); CARBON DIOXIDE 25 mmol/L (22-29); CREATININE 0.93 mg/dL (0.60-1.30); GLOMERULAR FILTR. RATE CALC > 60 mL/min (>60); GLUCOSE,RANDOM 100 mg/dL (70-110); TOTAL PROTEIN, SERUM 6.7 g/dL (6.4-8.2); UREA NITROGEN, BLOOD 10 mg/dL (7-18)
[2019-08-28 03:40] LABS: ANION GAP 13 mmol/L (8-16); CHLORIDE 91 mmol/L (98-107); SODIUM SERUM 129 mmol/L (136-145)
[2019-08-28 04:25] VITALS: BP 130/76
[2019-08-28] MEDS ORDERED: LORazepam 1 MG TABLET PO ONE (04:30)
[2019-08-28] MEDS ORDERED: ONDANSETRON HCL 4 MG TABLET PO ONE (04:30)
[2019-08-28] MEDS ORDERED: MAG HYDROX/AL HYDROX/SIMETH ES 30 ML SUSPENSION UDCUP PO ONE (05:30)
== END 2019-08-28 05:48 | disposition home or self-care (01) ==
LOC: EMS 01:14
DX: R45.851 Suicidal ideations (principal); F15.10 Other stimulant abuse, uncomplicated; F10.129 Alcohol abuse with intoxication, unspecified; R11.10 Vomiting, unspecified; I10 Essential (primary) hypertension; F32.9 Major depressive disorder, single episode, unspecified; F12.90 Cannabis use, unspecified, uncomplicated; F20.9 Schizophrenia, unspecified; J44.9 Chronic obstructive pulmonary disease, unspecified; F17.210 Nicotine dependence, cigarettes, uncomplicated
CPT/HCPCS: 36415; 80053; 85025; 96360; 96361; 99284; 99406; G0480; J7030; Q0162

== ENCOUNTER 2019-09-16 12:30 | Inpatient (IN) | payer MEDICAID ==
[~2019-09-16] VITALS: Ht 190.5 cm; Wt 85.1 kg
[~2019-09-16 12:30] MED LIST changes: +GABA-1181 PO; -GABA-531 PO; -SERT100T12 PO
[2019-09-16 13:41] LABS: BASOPHILS % (AUTO) 0.5 % (0.0-2.0); EOSINOPHILS % (AUTO) 0.3 % (1.0-6.0); HEMATOCRIT 41.2 % (41-53); HEMOGLOBIN 14.2 g/dL (13.5-17.5); LYMPHOCYTES # (AUTO) 1.9 K/uL (1.0-4.8); LYMPHOCYTES % (AUTO) 27.8 % (22.0-44.0); MEAN CORPUSCULAR HEMOGLOBIN 33.4 pg (26.0-34.0); MEAN CORPUSCULAR HGB CONC 34.5 G/dL (31.0-37.0); MEAN CORPUSCULAR VOLUME 97 fL (80-100); MONOCYTES # (AUTO) 0.7 K/uL (0.1-1.0); MONOCYTES % (AUTO) 10.3 % (2.0-9.0); NEUTROPHILS # (AUTO) 4.1 K/uL (1.8-7.7); NEUTROPHILS % (AUTO) 61.1 % (40.0-70.0); PLATELET COUNT (AUTO) 276 K/uL (150-450); RED BLOOD CELL COUNT(AUTO) 4.25 MIL/uL (4.50-5.90); RED CELL DISTRIBUTION WIDTH 14.4 % (11.5-14.5)
[2019-09-16 13:55] LABS: ANION GAP 11 mmol/L (8-16); CALCIUM, TOTAL 9.1 mg/dL (8.8-10.5); CARBON DIOXIDE 25 mmol/L (22-29); CHLORIDE 98 mmol/L (98-107); CREATININE 0.72 mg/dL (0.60-1.30); GLOMERULAR FILTR. RATE CALC > 60 mL/min (>60); GLUCOSE,RANDOM 108 mg/dL (70-110); POTASSIUM 3.6 mmol/L (3.5-5.1); SODIUM SERUM 134 mmol/L (136-145); UREA NITROGEN, BLOOD 8 mg/dL (7-18)
[2019-09-16 14:00] LABS: ALANINE AMINOTRANSFERASE 21 U/L (12-78); ALBUMIN 3.9 g/dL (3.4-5.0); ALKALINE PHOSPHATASE 68 U/L (46-116); ASPARTATE AMINOTRANSFERASE 19 U/L (15-37); BILIRUBIN,TOTAL 0.6 mg/dL (0.1-1.0); TOTAL PROTEIN, SERUM 6.9 g/dL (6.4-8.2)
[2019-09-16] MEDS ORDERED: ChlordiazePOXIDE HCL 25 MG CAPSULE PO ONE (15:00)
[2019-09-16 15:30] LABS: APPEARANCE,URINE CLOUDY (CLEAR); BILIRUBIN,URINE NEGATIVE (NEGATIVE); GLUCOSE, URINE (UA) NEGATIVE (NEGATIVE); KETONES,URINE NEGATIVE (NEGATIVE); LEUKOCYTE ESTERASE ,URINE NEGATIVE (NEGATIVE); NITRATE,URINE NEGATIVE (NEGATIVE); OCCULT BLOOD,URINE NEGATIVE (NEGATIVE); PROTEIN,URINE NEGATIVE (NEGATIVE); UROBILINOGEN,URINE 0.2 mg/dL (<=1.0)
[2019-09-16 15:36] LABS: AMPHET/METH SCREEN,URINE POSITIVE (NEGATIVE); BARBITURATE SCREEN, URINE NEGATIVE (NEGATIVE); BENZODIAZEPINES SCREEN,URINE NEGATIVE (NEGATIVE); CANNABINOID SCREEN,URINE POSITIVE (NEGATIVE); COCAINE SCREEN,URINE NEGATIVE (NEGATIVE); METHADONE SCREEN, URINE NEGATIVE (NEGATIVE); OPIATE SCREEN,URINE NEGATIVE (NEGATIVE)
[2019-09-16 15:37] LABS: PHENCYCLIDINE SCREEN,URINE NEGATIVE (NEGATIVE)
[2019-09-16] MEDS ORDERED: HALOPERIDOL 5 MG TABLET PO PRN (16:30)
[2019-09-16] MEDS ORDERED: ACETAMINOPHEN 325 MG TABLET PO PRN (20:00)
[2019-09-16] MEDS: LORazepam 2 MG TABLET PO PRN (20:14)
[2019-09-16 20:35] VITALS: BP 110/81
[2019-09-16] MEDS ORDERED: PNEUMOCOCCAL VACCINE POLYVALENT 0.5 ML VIAL [PPSV23] IM ONE (20:45)
[2019-09-17 03:57] VITALS: BP 107/75
[2019-09-17] MEDS: LORazepam 2 MG TABLET PO PRN ×3 (04:00→16:47)
[2019-09-17 08:27] LABS: CHOL/HDL RATIO 2.7 (4.2-7.3)
[2019-09-17 08:55] VITALS: BP 110/70
[2019-09-17] MEDS: BACITRACIN 28.4 GM OINTMENT TP SCH ×3 (08:58→20:33)
[2019-09-17] MEDS: NICOTINE 21 MG/24 HOUR PATCH TD SCH (08:59)
[2019-09-17] MEDS ORDERED: ACETAMINOPHEN 325 MG TABLET PO PRN (10:00)
[2019-09-17] MEDS ORDERED: ALBUTEROL SULFATE HFA 90 MCG/PUFF 8 GM INHALER IH PRN (10:00)
[2019-09-17] MEDS ORDERED: DOCUSATE SODIUM 100 MG CAPSULE PO PRN (10:00)
[2019-09-17] MEDS ORDERED: NICOTINE 14 MG/24 HOUR PATCH TD PRN (10:00)
[2019-09-17] MEDS ORDERED: ONDANSETRON HCL 4 MG TABLET PO PRN (10:00)
[2019-09-17] MEDS ORDERED: MAGNESIUM HYDROXIDE SUSPENSION 30 ML UDCUP PO PRN (10:00)
[2019-09-17] MEDS ORDERED: MAG HYDROX/AL HYDROX/SIMETH ES 30 ML SUSPENSION UDCUP PO PRN (10:00)
[2019-09-17] MEDS ORDERED: GuaiFENesin/D-METHORPHAN [SUGAR-FREE] 200-20MG/10 ML SYRUP UDCUP PO PRN (10:00)
[2019-09-17] MEDS ORDERED: IBUPROFEN 400 MG TABLET PO PRN (10:00)
[2019-09-17] MEDS ORDERED: PETROLATUM,WHITE 28 GM JELLY TP PRN (10:00)
[2019-09-17] MEDS ORDERED: CloNIDine HCL 0.1 MG TABLET PO PRN (10:00)
[2019-09-17] MEDS ORDERED: LOPERAMIDE HCL 2 MG CAPSULE PO PRN (10:00)
[2019-09-17] MEDS: GABAPENTIN 300 MG CAPSULE PO SCH ×2 (12:36→16:42)
[2019-09-17 16:26] VITALS: BP 100/80
[2019-09-17] MEDS: QUEtiapine FUMARATE 200 MG TABLET PO SCH (20:33)
[2019-09-18 04:41] VITALS: BP 99/62
[2019-09-18 07:15] VITALS: BP 130/81
[2019-09-18] MEDS: LORazepam 2 MG TABLET PO PRN ×3 (07:18→17:04)
[2019-09-18 08:18] VITALS: BP 117/77
[2019-09-18] MEDS: GABAPENTIN 300 MG CAPSULE PO SCH ×3 (08:31→16:45)
[2019-09-18] MEDS: NICOTINE 21 MG/24 HOUR PATCH TD SCH (08:32)
[2019-09-18] MEDS: BACITRACIN 28.4 GM OINTMENT TP SCH ×2 (08:34→16:56)
[2019-09-18 12:31] VITALS: BP 126/80
[2019-09-18 16:15] VITALS: BP 124/97
[2019-09-18] MEDS: QUEtiapine FUMARATE 200 MG TABLET PO SCH (20:36)
[2019-09-18] MEDS: ZOLPIDEM TARTRATE 10 MG TABLET PO PRN (20:52)
[2019-09-19 02:20] VITALS: BP 123/80
[2019-09-19 08:22] VITALS: BP 115/70
[2019-09-19] MEDS: GABAPENTIN 300 MG CAPSULE PO SCH ×3 (08:29→16:16)
[2019-09-19] MEDS: NICOTINE 21 MG/24 HOUR PATCH TD SCH (08:29)
[2019-09-19] MEDS: LORazepam 2 MG TABLET PO PRN ×3 (08:31→17:21)
[2019-09-19] MEDS: BACITRACIN 28.4 GM OINTMENT TP SCH ×2 (08:33→16:16)
[2019-09-19 16:06] VITALS: BP 108/79
[2019-09-19] MEDS: QUEtiapine FUMARATE 200 MG TABLET PO SCH (20:18)
[2019-09-19] MEDS: ZOLPIDEM TARTRATE 10 MG TABLET PO PRN (22:02)
[2019-09-20 01:00] VITALS: BP 103/67
[2019-09-20 08:27] VITALS: BP 121/89
[2019-09-20] MEDS: BACITRACIN 28.4 GM OINTMENT TP SCH ×2 (09:05→16:46)
[2019-09-20] MEDS: GABAPENTIN 300 MG CAPSULE PO SCH ×3 (09:05→16:46)
[2019-09-20] MEDS: LORazepam 2 MG TABLET PO PRN ×3 (09:09→18:03)
[2019-09-20] MEDS: NICOTINE 21 MG/24 HOUR PATCH TD SCH (09:11)
[2019-09-20 16:05] VITALS: BP 128/93
[2019-09-20] MEDS: QUEtiapine FUMARATE 200 MG TABLET PO SCH (20:32)
[2019-09-21 01:36] VITALS: BP 122/82
[2019-09-21 08:21] VITALS: BP 124/89
[2019-09-21] MEDS: BACITRACIN 28.4 GM OINTMENT TP SCH ×2 (08:32→16:49)
[2019-09-21] MEDS: GABAPENTIN 300 MG CAPSULE PO SCH ×3 (08:32→16:49)
[2019-09-21] MEDS: NICOTINE 21 MG/24 HOUR PATCH TD SCH (08:32)
[2019-09-21] MEDS: LORazepam 2 MG TABLET PO PRN ×3 (08:59→17:45)
[2019-09-21 16:00] VITALS: BP 128/80
[2019-09-21] MEDS: QUEtiapine FUMARATE 200 MG TABLET PO SCH (20:17)
[2019-09-22 04:18] VITALS: BP 111/80
[2019-09-22] MEDS: GABAPENTIN 300 MG CAPSULE PO SCH ×3 (09:27→16:35)
[2019-09-22] MEDS: MULTIVITAMINS WITH MINERALS, THERAPEUTIC TABLET PO SCH (09:27)
[2019-09-22] MEDS: BACITRACIN 28.4 GM OINTMENT TP SCH ×2 (09:28→16:35)
[2019-09-22] MEDS: THIAMINE 100 MG TABLET PO SCH (09:28)
[2019-09-22] MEDS: FOLIC ACID 1 MG TABLET PO SCH (09:28)
[2019-09-22] MEDS: NICOTINE 21 MG/24 HOUR PATCH TD SCH (09:28)
[2019-09-22] MEDS: LORazepam 2 MG TABLET PO PRN ×3 (09:46→18:07)
[2019-09-22 12:30] VITALS: BP 119/90
[2019-09-22 16:35] VITALS: BP 123/84
[2019-09-22] MEDS: QUEtiapine FUMARATE 200 MG TABLET PO SCH (20:08)
[2019-09-23 04:20] VITALS: BP 110/60
[2019-09-23] MEDS: FOLIC ACID 1 MG TABLET PO SCH (08:58)
[2019-09-23] MEDS: MULTIVITAMINS WITH MINERALS, THERAPEUTIC TABLET PO SCH (08:58)
[2019-09-23] MEDS: NICOTINE 21 MG/24 HOUR PATCH TD SCH (08:58)
[2019-09-23] MEDS: GABAPENTIN 300 MG CAPSULE PO SCH ×3 (08:58→16:23)
[2019-09-23] MEDS: THIAMINE 100 MG TABLET PO SCH (08:58)
[2019-09-23] MEDS: BACITRACIN 28.4 GM OINTMENT TP SCH ×2 (09:00→16:51)
[2019-09-23] MEDS: LORazepam 2 MG TABLET PO PRN ×4 (09:07→22:16)
[2019-09-23 11:08] VITALS: BP 125/92
[2019-09-23 16:19] VITALS: BP 123/84
[2019-09-23] MEDS: QUEtiapine FUMARATE 200 MG TABLET PO SCH (20:24)
[2019-09-23] MEDS: ZOLPIDEM TARTRATE 10 MG TABLET PO PRN (21:08)
[2019-09-24 05:13] VITALS: BP 114/90
[2019-09-24 08:43] VITALS: BP 110/78
[2019-09-24] MEDS: MULTIVITAMINS WITH MINERALS, THERAPEUTIC TABLET PO SCH (09:19)
[2019-09-24] MEDS: THIAMINE 100 MG TABLET PO SCH (09:19)
[2019-09-24] MEDS: FOLIC ACID 1 MG TABLET PO SCH (09:19)
[2019-09-24] MEDS: GABAPENTIN 300 MG CAPSULE PO SCH (09:19)
[2019-09-24] MEDS: NICOTINE 21 MG/24 HOUR PATCH TD SCH (09:20)
[2019-09-24] MEDS: BACITRACIN 28.4 GM OINTMENT TP SCH (09:20)
[2019-09-24] MEDS ORDERED: GABA-1181 PO (09:27)
[2019-09-24] MEDS ORDERED: QUET200T29 PO (09:27)
== END 2019-09-24 12:50 | disposition home or self-care (01) | DRG 750 ==
LOC: EMS 12:31 → B2S 18:40
DX: F25.0 Schizoaffective disorder, bipolar type (principal); R45.851 Suicidal ideations; E87.1 Hypo-osmolality and hyponatremia; J43.9 Emphysema, unspecified; Z59.0 Homelessness; F12.10 Cannabis abuse, uncomplicated; F15.10 Other stimulant abuse, uncomplicated; I10 Essential (primary) hypertension; F17.210 Nicotine dependence, cigarettes, uncomplicated; F10.20 Alcohol dependence, uncomplicated; Y90.9 Presence of alcohol in blood, level not specified; K21.9 Gastro-esophageal reflux disease without esophagitis; M19.90 Unspecified osteoarthritis, unspecified site; F19.10 Other psychoactive substance abuse, uncomplicated; Z91.5 Personal history of self-harm
CPT/HCPCS: G0480

== ENCOUNTER 2019-10-03 02:40 | Inpatient (IN) | payer MEDICAID ==
[~2019-10-03] VITALS: Ht 193 cm; Wt 84.0 kg
[~2019-10-03 02:40] MED LIST changes: +QUET200T29 PO; -QUET400T PO
[2019-10-03 02:58] LABS: BASOPHILS % (AUTO) 0.4 % (0.0-2.0); EOSINOPHILS % (AUTO) 0.1 % (1.0-6.0); HEMATOCRIT 40.9 % (41-53); MEAN CORPUSCULAR HEMOGLOBIN 33.2 pg (26.0-34.0); MEAN CORPUSCULAR HGB CONC 34.4 G/dL (31.0-37.0); MEAN CORPUSCULAR VOLUME 97 fL (80-100); MONOCYTES # (AUTO) 0.5 K/uL (0.1-1.0); MONOCYTES % (AUTO) 7.5 % (2.0-9.0); NEUTROPHILS # (AUTO) 5.5 K/uL (1.8-7.7); PLATELET COUNT (AUTO) 251 K/uL (150-450); RED BLOOD CELL COUNT(AUTO) 4.23 MIL/uL (4.50-5.90); RED CELL DISTRIBUTION WIDTH 14.8 % (11.5-14.5)
[2019-10-03 03:04] LABS: SALICYLATE 4.9 mg/dL (2.8-20.0)
[2019-10-03 03:05] LABS: ANION GAP 11 mmol/L (8-16); CALCIUM, TOTAL 8.6 mg/dL (8.8-10.5); CARBON DIOXIDE 24 mmol/L (22-29); CHLORIDE 100 mmol/L (98-107); CREATININE 1.03 mg/dL (0.60-1.30); GLOMERULAR FILTR. RATE CALC > 60 mL/min (>60); GLUCOSE,RANDOM 161 mg/dL (70-110); POTASSIUM 3.6 mmol/L (3.5-5.1); SODIUM SERUM 135 mmol/L (136-145); UREA NITROGEN, BLOOD 7 mg/dL (7-18)
[2019-10-03 03:11] LABS: ALANINE AMINOTRANSFERASE 43 U/L (12-78); ALBUMIN 3.6 g/dL (3.4-5.0); ALKALINE PHOSPHATASE 77 U/L (46-116); ASPARTATE AMINOTRANSFERASE 27 U/L (15-37); BILIRUBIN,TOTAL 0.5 mg/dL (0.1-1.0); TOTAL PROTEIN, SERUM 6.4 g/dL (6.4-8.2)
[2019-10-03 03:14] LABS: ACETAMINOPHEN < 2 mcg/mL (10-30)
[2019-10-03] MEDS ORDERED: ONDANSETRON HCL 4 MG/2 ML VIAL IVP PRN ×2 (05:00→05:15)
[2019-10-03] MEDS ORDERED: ACETAMINOPHEN 325 MG TABLET PO PRN (05:00)
[2019-10-03] MEDS ORDERED: 0.9% SODIUM CHLORIDE 10 ML SYRINGE IVP PRN ×2 (05:00→05:15)
[2019-10-03] MEDS ORDERED: MAGNESIUM HYDROXIDE SUSPENSION 30 ML UDCUP PO PRN (05:15)
[2019-10-03] MEDS ORDERED: NICOTINE 21 MG/24 HOUR PATCH TD ONE (05:15)
[2019-10-03 05:20] LABS: APPEARANCE,URINE CLEAR (CLEAR); BILIRUBIN,URINE NEGATIVE (NEGATIVE); GLUCOSE, URINE (UA) NEGATIVE (NEGATIVE); KETONES,URINE NEGATIVE (NEGATIVE); LEUKOCYTE ESTERASE ,URINE NEGATIVE (NEGATIVE); NITRATE,URINE NEGATIVE (NEGATIVE); OCCULT BLOOD,URINE NEGATIVE (NEGATIVE); PROTEIN,URINE NEGATIVE (NEGATIVE); UROBILINOGEN,URINE 0.2 mg/dL (<=1.0)
[2019-10-03] MEDS: SODIUM CHLORIDE 0.9% 1,000 ML IV SCH ×2 (05:24→15:38)
[2019-10-03 05:39] LABS: BACTERIA,URINE None Seen /HPF (None Seen); RBC,URINE None Seen /HPF (0-2); SQUAMOUS EPITHELIAL CELL,UR Few /LPF (None Seen); WBC,URINE None Seen /HPF (0-5); YEAST,URINE None Seen /HPF (None Seen)
[2019-10-03 05:42] LABS: AMPHET/METH SCREEN,URINE POSITIVE (NEGATIVE); BARBITURATE SCREEN, URINE NEGATIVE (NEGATIVE); BENZODIAZEPINES SCREEN,URINE NEGATIVE (NEGATIVE); CANNABINOID SCREEN,URINE NEGATIVE (NEGATIVE); COCAINE SCREEN,URINE NEGATIVE (NEGATIVE); METHADONE SCREEN, URINE NEGATIVE (NEGATIVE); OPIATE SCREEN,URINE NEGATIVE (NEGATIVE)
[2019-10-03 05:44] LABS: PHENCYCLIDINE SCREEN,URINE NEGATIVE (NEGATIVE)
[2019-10-03] MEDS: DOCUSATE SODIUM 100 MG CAPSULE PO SCH ×2 (08:22→21:00)
[2019-10-03] MEDS: FAMOTIDINE 10 MG/ML 2 ML VIAL IVP SCH (09:31)
[2019-10-03] MEDS: ACETAMINOPHEN 325 MG TABLET PO PRN (12:10)
[2019-10-03 21:02] VITALS: BP 126/73
[2019-10-03 23:49] VITALS: BP 127/69
[2019-10-04] MEDS: SODIUM CHLORIDE 0.9% 1,000 ML IV SCH ×3 (03:19→20:11)
[2019-10-04 04:01] VITALS: BP 133/94
[2019-10-04 07:21] VITALS: BP 128/78
[2019-10-04] MEDS: FAMOTIDINE 10 MG/ML 2 ML VIAL IVP SCH (08:23)
[2019-10-04] MEDS: DOCUSATE SODIUM 100 MG CAPSULE PO SCH ×2 (08:23→20:06)
[2019-10-04 09:26] LABS: BASOPHILS % (AUTO) 0.8 % (0.0-2.0); EOSINOPHILS % (AUTO) 1.7 % (1.0-6.0); HEMATOCRIT 42.7 % (41-53); HEMOGLOBIN 14.4 g/dL (13.5-17.5); LYMPHOCYTES # (AUTO) 1.2 K/uL (1.0-4.8); LYMPHOCYTES % (AUTO) 19.9 % (22.0-44.0); MEAN CORPUSCULAR HEMOGLOBIN 33.4 pg (26.0-34.0); MEAN CORPUSCULAR HGB CONC 33.7 G/dL (31.0-37.0); MEAN CORPUSCULAR VOLUME 99 fL (80-100); MONOCYTES # (AUTO) 0.4 K/uL (0.1-1.0); MONOCYTES % (AUTO) 6.9 % (2.0-9.0); NEUTROPHILS # (AUTO) 4.3 K/uL (1.8-7.7); NEUTROPHILS % (AUTO) 70.7 % (40.0-70.0); PLATELET COUNT (AUTO) 269 K/uL (150-450); RED BLOOD CELL COUNT(AUTO) 4.32 MIL/uL (4.50-5.90); RED CELL DISTRIBUTION WIDTH 15.2 % (11.5-14.5)
[2019-10-04 09:55] LABS: ALANINE AMINOTRANSFERASE 40 U/L (12-78); ALBUMIN 3.5 g/dL (3.4-5.0); ALKALINE PHOSPHATASE 74 U/L (46-116); ANION GAP 8 mmol/L (8-16); ASPARTATE AMINOTRANSFERASE 20 U/L (15-37); BILIRUBIN,TOTAL 0.5 mg/dL (0.1-1.0); CALCIUM, TOTAL 8.9 mg/dL (8.8-10.5); CARBON DIOXIDE 26 mmol/L (22-29); CHLORIDE 105 mmol/L (98-107); GLOMERULAR FILTR. RATE CALC > 60 mL/min (>60); GLUCOSE,RANDOM 84 mg/dL (70-110); POTASSIUM 4.7 mmol/L (3.5-5.1); SODIUM SERUM 139 mmol/L (136-145); TOTAL PROTEIN, SERUM 6.5 g/dL (6.4-8.2); UREA NITROGEN, BLOOD 8 mg/dL (7-18)
[2019-10-04 11:29] VITALS: BP 154/109
[2019-10-04] MEDS: ACETAMINOPHEN 325 MG TABLET PO PRN (11:43)
[2019-10-04] MEDS: NICOTINE 21 MG/24 HOUR PATCH TD SCH (12:30)
[2019-10-04] MEDS ORDERED: HALOPERIDOL 5 MG TABLET PO PRN (15:15)
[2019-10-04] MEDS ORDERED: ZOLPIDEM TARTRATE 10 MG TABLET PO PRN (15:15)
[2019-10-04 15:46] VITALS: BP 136/82
[2019-10-04] MEDS: GABAPENTIN 300 MG CAPSULE PO SCH ×2 (18:13→20:06)
[2019-10-04 19:26] VITALS: BP 114/91
[2019-10-04] MEDS ORDERED: QUEtiapine FUMARATE 200 MG TABLET PO SCH (21:00)
[2019-10-04 23:32] VITALS: BP 128/76
[2019-10-05 04:42] VITALS: BP 103/65
[2019-10-05] MEDS: SODIUM CHLORIDE 0.9% 1,000 ML IV SCH ×2 (07:15→16:18)
[2019-10-05 08:04] VITALS: BP 117/80
[2019-10-05] MEDS: NICOTINE 21 MG/24 HOUR PATCH TD SCH (08:39)
[2019-10-05] MEDS: FAMOTIDINE 10 MG/ML 2 ML VIAL IVP SCH (08:39)
[2019-10-05] MEDS: GABAPENTIN 300 MG CAPSULE PO SCH ×2 (08:39→16:18)
[2019-10-05] MEDS: DOCUSATE SODIUM 100 MG CAPSULE PO SCH (08:46)
[2019-10-05 11:40] VITALS: BP 118/85
[2019-10-05 16:30] VITALS: BP 130/95
== END 2019-10-05 19:45 | DRG 817 ==
LOC: EMS 02:40 → 5S 05:10 → UNDOADMIN 18:31
PROVIDERS: ADMIT Internal Medicine; ATTEND Internal Medicine
DX: T43.592A Poisoning by other antipsychotics and neuroleptics, intentional self-harm, initial encounter (principal); E87.1 Hypo-osmolality and hyponatremia; R45.851 Suicidal ideations; T50.991A Poisoning by other drugs, medicaments and biological substances, accidental (unintentional), initial encounter; F12.90 Cannabis use, unspecified, uncomplicated; I10 Essential (primary) hypertension; R73.9 Hyperglycemia, unspecified; F15.10 Other stimulant abuse, uncomplicated; F32.9 Major depressive disorder, single episode, unspecified; F10.20 Alcohol dependence, uncomplicated; Y90.9 Presence of alcohol in blood, level not specified; Y92.89 Other specified places as the place of occurrence of the external cause; Z91.5 Personal history of self-harm; F25.0 Schizoaffective disorder, bipolar type; J43.9 Emphysema, unspecified; F17.210 Nicotine dependence, cigarettes, uncomplicated
CPT/HCPCS: 93005; G0378; G0480; G0481; J3490; J7030

== ENCOUNTER 2019-10-05 13:57 | Inpatient (IN) | payer MEDICAID ==
[~2019-10-05] VITALS: Ht 190.5 cm; Wt 86.6 kg
[2019-10-05] MEDS ORDERED: HALOPERIDOL 5 MG TABLET PO PRN (16:30)
[2019-10-05] MEDS ORDERED: ZOLPIDEM TARTRATE 10 MG TABLET PO PRN (16:30)
[2019-10-05] MEDS: QUEtiapine FUMARATE 200 MG TABLET PO SCH (20:53)
[2019-10-05] MEDS: GABAPENTIN 300 MG CAPSULE PO SCH (20:53)
[2019-10-05 21:22] VITALS: BP 115/78
[2019-10-05] MEDS: LORazepam 2 MG TABLET PO PRN (21:52)
[2019-10-06] MEDS ORDERED: PNEUMOCOCCAL VACCINE POLYVALENT 0.5 ML VIAL [PPSV23] IM ONE (03:15)
[2019-10-06 05:03] VITALS: BP 116/70
[2019-10-06] MEDS: LORazepam 2 MG TABLET PO PRN ×3 (06:45→19:28)
[2019-10-06] MEDS: GABAPENTIN 300 MG CAPSULE PO SCH ×3 (08:51→16:16)
[2019-10-06] MEDS: NICOTINE 21 MG/24 HOUR PATCH TD SCH (08:52)
[2019-10-06] MEDS ORDERED: NICOTINE 14 MG/24 HOUR PATCH TD PRN (10:45)
[2019-10-06] MEDS ORDERED: DOCUSATE SODIUM 100 MG CAPSULE PO PRN (10:45)
[2019-10-06] MEDS ORDERED: IBUPROFEN 400 MG TABLET PO PRN (10:45)
[2019-10-06] MEDS ORDERED: GuaiFENesin/D-METHORPHAN [SUGAR-FREE] 200-20MG/10 ML SYRUP UDCUP PO PRN (10:45)
[2019-10-06] MEDS ORDERED: CloNIDine HCL 0.1 MG TABLET PO PRN (10:45)
[2019-10-06] MEDS ORDERED: ONDANSETRON HCL 4 MG TABLET PO PRN (10:45)
[2019-10-06] MEDS ORDERED: MAG HYDROX/AL HYDROX/SIMETH ES 30 ML SUSPENSION UDCUP PO PRN (10:45)
[2019-10-06] MEDS ORDERED: ALBUTEROL SULFATE HFA 90 MCG/PUFF 8 GM INHALER IH PRN (10:45)
[2019-10-06] MEDS ORDERED: MAGNESIUM HYDROXIDE SUSPENSION 30 ML UDCUP PO PRN (10:45)
[2019-10-06] MEDS ORDERED: LOPERAMIDE HCL 2 MG CAPSULE PO PRN (10:45)
[2019-10-06] MEDS ORDERED: ACETAMINOPHEN 325 MG TABLET PO PRN (10:45)
[2019-10-06] MEDS ORDERED: PETROLATUM,WHITE 28 GM JELLY TP PRN (10:45)
[2019-10-06] MEDS: QUEtiapine FUMARATE 200 MG TABLET PO SCH (20:13)
[2019-10-07] MEDS: LORazepam 2 MG TABLET PO PRN ×3 (01:22→14:07)
[2019-10-07 03:46] VITALS: BP 105/80
[2019-10-07] MEDS: GABAPENTIN 300 MG CAPSULE PO SCH ×3 (08:30→17:11)
[2019-10-07] MEDS: NICOTINE 21 MG/24 HOUR PATCH TD SCH (08:30)
[2019-10-07 09:27] VITALS: BP 121/73
[2019-10-07 16:25] VITALS: BP 125/84
[2019-10-07] MEDS: QUEtiapine FUMARATE 200 MG TABLET PO SCH (20:53)
[2019-10-08 01:19] VITALS: BP 110/78
[2019-10-08 08:29] VITALS: BP 111/76
[2019-10-08] MEDS: GABAPENTIN 300 MG CAPSULE PO SCH ×2 (08:55→12:24)
[2019-10-08] MEDS: LORazepam 2 MG TABLET PO PRN (08:55)
[2019-10-08] MEDS: NICOTINE 21 MG/24 HOUR PATCH TD SCH (08:55)
[2019-10-08] MEDS ORDERED: QUET200T29 PO (09:52)
[2019-10-08] MEDS ORDERED: GABA-1181 PO (09:52)
[2019-10-08] MEDS ORDERED: LORazepam 1 MG TABLET PO PRN (10:30)
== END 2019-10-08 13:00 | disposition home or self-care (01) | DRG 750 ==
LOC: UNDOADMIN 17:55 → B2S 17:55
DX: F25.1 Schizoaffective disorder, depressive type (principal); R45.851 Suicidal ideations; F10.10 Alcohol abuse, uncomplicated; Z71.41 Alcohol abuse counseling and surveillance of alcoholic; F15.10 Other stimulant abuse, uncomplicated; F34.1 Dysthymic disorder; F43.10 Post-traumatic stress disorder, unspecified; I10 Essential (primary) hypertension; J44.9 Chronic obstructive pulmonary disease, unspecified; M19.90 Unspecified osteoarthritis, unspecified site; Z79.899 Other long term (current) drug therapy; Z28.21 Immunization not carried out because of patient refusal
CPT/HCPCS: 87081

== ENCOUNTER 2019-11-18 13:35 | Emergency (ER) | payer MEDICAID ==
[~2019-11-18] VITALS: Ht 190.5 cm; Wt 86.4 kg
[2019-11-18 13:37] VITALS: BP 146/87
[2019-11-18] MEDS ORDERED: DOXYCYCLINE HYCLATE 100 MG TABLET PO ONE (14:30)
[2019-11-18] MEDS ORDERED: DOXYCYCLINE HYCLATE 100 MG CAPSULE PO ONE (14:30)
== END 2019-11-18 15:49 | disposition home or self-care (01) ==
LOC: EMS 13:40
DX: R60.0 Localized edema (principal); M79.672 Pain in left foot; F31.9 Bipolar disorder, unspecified; J44.9 Chronic obstructive pulmonary disease, unspecified; I10 Essential (primary) hypertension; F20.9 Schizophrenia, unspecified; F17.210 Nicotine dependence, cigarettes, uncomplicated; F12.90 Cannabis use, unspecified, uncomplicated; F19.90 Other psychoactive substance use, unspecified, uncomplicated

== ENCOUNTER 2019-11-30 01:22 | Emergency (ER) | payer MEDICAID ==
[~2019-11-30] VITALS: Ht 190.5 cm; Wt 86.4 kg
[2019-11-30] MEDS ORDERED: LORazepam 2 MG/ML VIAL IM ONE (02:15)
[2019-11-30 02:34] LABS: BASOPHILS % (AUTO) 0.9 % (0.0-2.0); EOSINOPHILS % (AUTO) 1.4 % (1.0-6.0); HEMATOCRIT 37.3 % (41-53); HEMOGLOBIN 12.9 g/dL (13.5-17.5); LYMPHOCYTES # (AUTO) 1.8 K/uL (1.0-4.8); LYMPHOCYTES % (AUTO) 31.9 % (22.0-44.0); MEAN CORPUSCULAR HEMOGLOBIN 33.9 pg (26.0-34.0); MEAN CORPUSCULAR HGB CONC 34.6 G/dL (31.0-37.0); MEAN CORPUSCULAR VOLUME 98 fL (80-100); MONOCYTES # (AUTO) 0.5 K/uL (0.1-1.0); MONOCYTES % (AUTO) 8.6 % (2.0-9.0); NEUTROPHILS # (AUTO) 3.2 K/uL (1.8-7.7); NEUTROPHILS % (AUTO) 57.2 % (40.0-70.0); PLATELET COUNT (AUTO) 244 K/uL (150-450); RED BLOOD CELL COUNT(AUTO) 3.81 MIL/uL (4.50-5.90)
[2019-11-30 03:05] LABS: ALANINE AMINOTRANSFERASE 27 U/L (12-78); ALBUMIN 3.2 g/dL (3.4-5.0); ALKALINE PHOSPHATASE 57 U/L (46-116); ANION GAP 8 mmol/L (8-16); ASPARTATE AMINOTRANSFERASE 31 U/L (15-37); BILIRUBIN,TOTAL 0.3 mg/dL (0.1-1.0); CALCIUM, TOTAL 8.2 mg/dL (8.8-10.5); CARBON DIOXIDE 30 mmol/L (22-29); CHLORIDE 98 mmol/L (98-107); CREATINE KINASE, TOTAL ONLY 391 U/L (39-308); CREATININE 0.91 mg/dL (0.60-1.30); GLOMERULAR FILTR. RATE CALC > 60 mL/min (>60); GLUCOSE,RANDOM 99 mg/dL (70-110); LIPASE 88 U/L (73-393); SODIUM SERUM 136 mmol/L (136-145); UREA NITROGEN, BLOOD 8 mg/dL (7-18)
[2019-11-30 06:27] VITALS: BP 120/60
== END 2019-11-30 06:28 | disposition home or self-care (01) ==
LOC: EMS 01:23
DX: F41.9 Anxiety disorder, unspecified (principal); F10.129 Alcohol abuse with intoxication, unspecified; E87.6 Hypokalemia; F15.10 Other stimulant abuse, uncomplicated; F31.9 Bipolar disorder, unspecified; J44.9 Chronic obstructive pulmonary disease, unspecified; I10 Essential (primary) hypertension; F20.9 Schizophrenia, unspecified; F17.210 Nicotine dependence, cigarettes, uncomplicated; F12.90 Cannabis use, unspecified, uncomplicated; Y90.3 Blood alcohol level of 60-79 mg/100 ml
CPT/HCPCS: 36415; 80053; 82550; 83690; 84484; 85025; 96372; 99283; 99406; G0480; J2060

== ENCOUNTER 2020-02-14 15:07 | Inpatient (IN) | payer MEDICAID ==
[~2020-02-14] VITALS: Ht 190.5 cm; Wt 86.0 kg
[2020-02-14 16:08] LABS: BASOPHILS % (AUTO) 0.5 % (0.0-2.0); HEMATOCRIT 37.7 % (41-53); HEMOGLOBIN 12.8 g/dL (13.5-17.5); LYMPHOCYTES # (AUTO) 1.8 K/uL (1.0-4.8); LYMPHOCYTES % (AUTO) 28.4 % (22.0-44.0); MEAN CORPUSCULAR HEMOGLOBIN 33.4 pg (26.0-34.0); MEAN CORPUSCULAR HGB CONC 33.8 G/dL (31.0-37.0); MEAN CORPUSCULAR VOLUME 99 fL (80-100); MONOCYTES # (AUTO) 0.6 K/uL (0.1-1.0); MONOCYTES % (AUTO) 9.5 % (2.0-9.0); NEUTROPHILS # (AUTO) 3.8 K/uL (1.8-7.7); NEUTROPHILS % (AUTO) 58.6 % (40.0-70.0); PLATELET COUNT (AUTO) 249 K/uL (150-450); RED BLOOD CELL COUNT(AUTO) 3.82 MIL/uL (4.50-5.90); RED CELL DISTRIBUTION WIDTH 14.8 % (11.5-14.5)
[2020-02-14] MEDS ORDERED: RisperiDONE 1 MG TABLET PO ONE (16:15)
[2020-02-14] MEDS ORDERED: LORazepam 2 MG TABLET PO ONE (16:15)
[2020-02-14 16:19] LABS: ANION GAP 9 mmol/L (8-16); CALCIUM, TOTAL 8.3 mg/dL (8.8-10.5); CARBON DIOXIDE 25 mmol/L (22-29); CHLORIDE 96 mmol/L (98-107); CREATININE 1.03 mg/dL (0.60-1.30); GLOMERULAR FILTR. RATE CALC > 60 mL/min (>60); GLUCOSE,RANDOM 113 mg/dL (70-110); POTASSIUM 3.8 mmol/L (3.5-5.1); SODIUM SERUM 130 mmol/L (136-145); UREA NITROGEN, BLOOD 8 mg/dL (7-18)
[2020-02-14 16:25] LABS: ALANINE AMINOTRANSFERASE 26 U/L (12-78); ALBUMIN 3.4 g/dL (3.4-5.0); ALKALINE PHOSPHATASE 72 U/L (46-116); ASPARTATE AMINOTRANSFERASE 21 U/L (15-37); BILIRUBIN,TOTAL 0.3 mg/dL (0.1-1.0)
[2020-02-14] MEDS ORDERED: QUEtiapine FUMARATE 100 MG TABLET PO PRN (16:45)
[2020-02-14 17:31] LABS: COVID AG,FIA SOURCE NASOPHARYNGEAL
[2020-02-14 20:39] VITALS: BP 135/92
[2020-02-14] MEDS ORDERED: ALBUTEROL SULFATE HFA 90 MCG/PUFF 8 GM INHALER IH PRN (21:00)
[2020-02-14] MEDS: LORazepam 2 MG TABLET PO PRN (21:47)
[2020-02-14 23:35] LABS: AMPHET/METH SCREEN,URINE NEGATIVE (NEGATIVE); BARBITURATE SCREEN, URINE NEGATIVE (NEGATIVE); BENZODIAZEPINES SCREEN,URINE NEGATIVE (NEGATIVE); CANNABINOID SCREEN,URINE NEGATIVE (NEGATIVE); COCAINE SCREEN,URINE NEGATIVE (NEGATIVE); METHADONE SCREEN, URINE NEGATIVE (NEGATIVE); OPIATE SCREEN,URINE NEGATIVE (NEGATIVE)
[2020-02-14 23:40] LABS: PHENCYCLIDINE SCREEN,URINE NEGATIVE (NEGATIVE)
[2020-02-15] MEDS ORDERED: INFLUENZA VIRUS VACCINE QVS 2020-21 (6MO+)/PF 60 MCG/0.5 ML SYRINGE IM ONE (00:45)
[2020-02-15] MEDS: LORazepam 2 MG TABLET PO PRN ×3 (03:48→16:00)
[2020-02-15 08:44] VITALS: BP 151/95
[2020-02-15] MEDS ORDERED: CloNIDine HCL 0.1 MG TABLET PO PRN (09:00)
[2020-02-15] MEDS ORDERED: PETROLATUM,WHITE 28 GM JELLY TP PRN (09:00)
[2020-02-15] MEDS ORDERED: ALBUTEROL SULFATE HFA 90 MCG/PUFF 8 GM INHALER IH PRN (09:00)
[2020-02-15] MEDS ORDERED: NICOTINE 14 MG/24 HOUR PATCH TD PRN (09:00)
[2020-02-15] MEDS ORDERED: MAGNESIUM HYDROXIDE SUSPENSION 30 ML UDCUP PO PRN (09:00)
[2020-02-15] MEDS ORDERED: MAG HYDROX/AL HYDROX/SIMETH ES 30 ML SUSPENSION UDCUP PO PRN (09:00)
[2020-02-15] MEDS ORDERED: ONDANSETRON HCL 4 MG TABLET PO PRN (09:00)
[2020-02-15] MEDS ORDERED: GuaiFENesin/D-METHORPHAN [SUGAR-FREE] 200-20MG/10 ML SYRUP UDCUP PO PRN (09:00)
[2020-02-15] MEDS ORDERED: DOCUSATE SODIUM 100 MG CAPSULE PO PRN (09:00)
[2020-02-15] MEDS ORDERED: LOPERAMIDE HCL 2 MG CAPSULE PO PRN (09:00)
[2020-02-15] MEDS: IBUPROFEN 400 MG TABLET PO PRN (10:29)
[2020-02-15] MEDS: NICOTINE 21 MG/24 HOUR PATCH TD PRN ×2 (10:33→16:17)
[2020-02-15 15:58] VITALS: BP 143/103
[2020-02-15 16:00] VITALS: BP 143/103
[2020-02-15] MEDS ORDERED: HALOPERIDOL 5 MG TABLET PO PRN (16:15)
[2020-02-15] MEDS: GABAPENTIN 300 MG CAPSULE PO SCH (17:01)
[2020-02-15] MEDS: QUEtiapine FUMARATE 200 MG TABLET PO SCH (20:52)
[2020-02-16] MEDS: IBUPROFEN 400 MG TABLET PO PRN (03:41)
[2020-02-16] MEDS: LORazepam 2 MG TABLET PO PRN ×3 (03:41→15:44)
[2020-02-16 09:28] VITALS: BP 134/103
[2020-02-16] MEDS: GABAPENTIN 300 MG CAPSULE PO SCH ×3 (09:29→16:44)
[2020-02-16] MEDS: NICOTINE 21 MG/24 HOUR PATCH TD PRN (11:10)
[2020-02-16 16:03] VITALS: BP 144/98
[2020-02-16] MEDS: ACETAMINOPHEN 325 MG TABLET PO PRN (16:45)
[2020-02-16] MEDS: QUEtiapine FUMARATE 200 MG TABLET PO SCH (20:22)
[2020-02-17] MEDS: LORazepam 2 MG TABLET PO PRN ×4 (00:48→17:53)
[2020-02-17 08:22] VITALS: BP 125/87
[2020-02-17] MEDS: GABAPENTIN 300 MG CAPSULE PO SCH ×3 (08:36→16:04)
[2020-02-17] MEDS: NICOTINE 21 MG/24 HOUR PATCH TD PRN (08:39)
[2020-02-17 16:19] VITALS: BP 127/79
[2020-02-17] MEDS: ACETAMINOPHEN 325 MG TABLET PO PRN (16:50)
[2020-02-17] MEDS: QUEtiapine FUMARATE 200 MG TABLET PO SCH (20:29)
[2020-02-18 04:30] VITALS: BP 126/80
[2020-02-18] MEDS: LORazepam 2 MG TABLET PO PRN ×3 (04:39→16:17)
[2020-02-18 09:19] VITALS: BP 134/94
[2020-02-18] MEDS: GABAPENTIN 300 MG CAPSULE PO SCH ×3 (09:39→16:08)
[2020-02-18] MEDS: NICOTINE 21 MG/24 HOUR PATCH TD PRN (09:59)
[2020-02-18 10:30] LABS: ANION GAP 5 mmol/L (8-16); CALCIUM, TOTAL 9.1 mg/dL (8.8-10.5); CARBON DIOXIDE 28 mmol/L (22-29); CHLORIDE 106 mmol/L (98-107); CREATININE 0.77 mg/dL (0.60-1.30); GLOMERULAR FILTR. RATE CALC > 60 mL/min (>60); GLUCOSE,RANDOM 104 mg/dL (70-110); POTASSIUM 5.1 mmol/L (3.5-5.1); SODIUM SERUM 139 mmol/L (136-145); UREA NITROGEN, BLOOD 20 mg/dL (7-18)
[2020-02-18] MEDS: ACETAMINOPHEN 325 MG TABLET PO PRN (10:45)
[2020-02-18 10:47] VITALS: BP 139/87
[2020-02-18 11:50] VITALS: BP 127/79
[2020-02-18 16:00] VITALS: BP 138/101
[2020-02-18] MEDS: QUEtiapine FUMARATE 200 MG TABLET PO SCH (20:28)
[2020-02-19] MEDS: GABAPENTIN 300 MG CAPSULE PO SCH ×3 (08:30→16:29)
[2020-02-19] MEDS: LORazepam 2 MG TABLET PO PRN ×3 (08:39→18:28)
[2020-02-19 09:25] VITALS: BP 137/89
[2020-02-19 16:00] VITALS: BP 154/89
[2020-02-19] MEDS: QUEtiapine FUMARATE 200 MG TABLET PO SCH (20:41)
[2020-02-19] MEDS: ZOLPIDEM TARTRATE 10 MG TABLET PO PRN (23:07)
[2020-02-20] MEDS: GABAPENTIN 300 MG CAPSULE PO SCH ×3 (09:05→16:46)
[2020-02-20] MEDS: LORazepam 2 MG TABLET PO PRN ×2 (09:21→13:58)
[2020-02-20] MEDS: NICOTINE 21 MG/24 HOUR PATCH TD PRN (09:23)
[2020-02-20 10:04] VITALS: BP 104/65
[2020-02-20 16:41] VITALS: BP 117/69
[2020-02-20] MEDS: ACETAMINOPHEN 325 MG TABLET PO PRN (17:13)
[2020-02-20] MEDS: QUEtiapine FUMARATE 200 MG TABLET PO SCH (20:19)
[2020-02-21 08:00] VITALS: BP 127/80
[2020-02-21] MEDS: LORazepam 2 MG TABLET PO PRN ×3 (08:20→17:25)
[2020-02-21] MEDS: NICOTINE 21 MG/24 HOUR PATCH TD PRN (08:20)
[2020-02-21] MEDS: GABAPENTIN 300 MG CAPSULE PO SCH ×3 (08:20→16:40)
[2020-02-21] MEDS ORDERED: GABA-1181 PO (15:25)
[2020-02-21] MEDS ORDERED: QUET200T PO (15:27)
[2020-02-21 16:38] VITALS: BP 130/93
[2020-02-21] MEDS: QUEtiapine FUMARATE 200 MG TABLET PO SCH (20:34)
[2020-02-21] MEDS: ZOLPIDEM TARTRATE 10 MG TABLET PO PRN (21:18)
[2020-02-22] MEDS: GABAPENTIN 300 MG CAPSULE PO SCH (08:32)
[2020-02-22] MEDS: LORazepam 2 MG TABLET PO PRN (08:33)
[2020-02-22] MEDS: NICOTINE 21 MG/24 HOUR PATCH TD PRN (08:53)
[2020-02-22 09:00] VITALS: BP 139/74
== END 2020-02-22 09:30 | disposition home or self-care (01) | DRG 750 ==
LOC: EMS 15:10 → 3EI 16:41 → UNDOADMIN 17:47 → 3EI 17:47
PROVIDERS: ADMIT Psychiatry & Neurology Child & Adolescent Psychiatry; ATTEND Psychiatry & Neurology Child & Adolescent Psychiatry
DX: F25.9 Schizoaffective disorder, unspecified (principal); D64.9 Anemia, unspecified; E87.1 Hypo-osmolality and hyponatremia; F10.10 Alcohol abuse, uncomplicated; F15.90 Other stimulant use, unspecified, uncomplicated; F17.210 Nicotine dependence, cigarettes, uncomplicated; I10 Essential (primary) hypertension; J44.9 Chronic obstructive pulmonary disease, unspecified; R45.850 Homicidal ideations; Z20.828 Contact with and (suspected) exposure to other viral communicable diseases; F32.9 Major depressive disorder, single episode, unspecified; F19.10 Other psychoactive substance abuse, uncomplicated; Z91.5 Personal history of self-harm; Z28.21 Immunization not carried out because of patient refusal; Z71.6 Tobacco abuse counseling; Z79.899 Other long term (current) drug therapy
CPT/HCPCS: 87081; 87426; G0480

== ENCOUNTER 2020-02-25 16:56 | Emergency (ER) | payer MEDICAID ==
[~2020-02-25] VITALS: Ht 190.5 cm; Wt 90.0 kg
[~2020-02-25 16:56] MED LIST changes: +QUET200T PO; -QUET200T29 PO
[2020-02-25 17:01] VITALS: BP 150/101
== END 2020-02-25 18:04 | disposition left against medical advice (07) ==
LOC: EMS 16:57
DX: Z04.6 Encounter for general psychiatric examination, requested by authority (principal); Z53.21 Procedure and treatment not carried out due to patient leaving prior to being seen by health care provider

== ENCOUNTER 2020-02-27 17:06 | Emergency (ER) | payer MEDICAID | END 2020-02-27 17:30 | disposition left against medical advice (07) | LOC: EMS 17:06 | DX: G43.909 Migraine, unspecified, not intractable, without status migrainosus (principal); Z53.21 Procedure and treatment not carried out due to patient leaving prior to being seen by health care provider ==

== ENCOUNTER 2020-02-28 12:20 | Emergency (ER) | payer MEDICAID ==
[~2020-02-28] VITALS: Ht 188 cm; Wt 81.8 kg
[2020-02-28 13:54] VITALS: BP 166/98
[2020-02-28] MEDS ORDERED: NAPROXEN 250 MG TABLET PO ONE (14:00)
[2020-02-29] MEDS ORDERED: DIVA-85 PO (08:50)
== END 2020-02-28 14:48 | disposition left against medical advice (07) ==
LOC: EMS 12:36
DX: G47.00 Insomnia, unspecified (principal); J44.9 Chronic obstructive pulmonary disease, unspecified; F31.9 Bipolar disorder, unspecified; I10 Essential (primary) hypertension; F20.9 Schizophrenia, unspecified; F17.210 Nicotine dependence, cigarettes, uncomplicated; F12.90 Cannabis use, unspecified, uncomplicated; F19.90 Other psychoactive substance use, unspecified, uncomplicated

== ENCOUNTER 2020-02-29 08:43 | Inpatient (IN) | payer MEDICAID ==
[~2020-02-29] VITALS: Ht 190.5 cm; Wt 85.7 kg
[2020-02-29] MEDS ORDERED: DIVA-85 PO (08:50)
[2020-02-29 09:37] LABS: BASOPHILS % (AUTO) 0.2 % (0.0-2.0); EOSINOPHILS % (AUTO) 0.3 % (1.0-6.0); HEMATOCRIT 43.4 % (41-53); HEMOGLOBIN 15.2 g/dL (13.5-17.5); LYMPHOCYTES # (AUTO) 1.2 K/uL (1.0-4.8); LYMPHOCYTES % (AUTO) 13.5 % (22.0-44.0); MEAN CORPUSCULAR HGB CONC 34.9 G/dL (31.0-37.0); MEAN CORPUSCULAR VOLUME 97 fL (80-100); MONOCYTES # (AUTO) 0.5 K/uL (0.1-1.0); MONOCYTES % (AUTO) 5.4 % (2.0-9.0); NEUTROPHILS # (AUTO) 7.4 K/uL (1.8-7.7); NEUTROPHILS % (AUTO) 80.6 % (40.0-70.0); PLATELET COUNT (AUTO) 275 K/uL (150-450); RED BLOOD CELL COUNT(AUTO) 4.46 MIL/uL (4.50-5.90); RED CELL DISTRIBUTION WIDTH 14.5 % (11.5-14.5)
[2020-02-29 09:47] LABS: ANION GAP 8 mmol/L (8-16); CALCIUM, TOTAL 9.2 mg/dL (8.8-10.5); CARBON DIOXIDE 30 mmol/L (22-29); CHLORIDE 102 mmol/L (98-107); CREATININE 0.86 mg/dL (0.60-1.30); GLOMERULAR FILTR. RATE CALC > 60 mL/min (>60); GLUCOSE,RANDOM 120 mg/dL (70-110); POTASSIUM 3.5 mmol/L (3.5-5.1); SODIUM SERUM 140 mmol/L (136-145); UREA NITROGEN, BLOOD 10 mg/dL (7-18)
[2020-02-29 09:53] LABS: ALANINE AMINOTRANSFERASE 29 U/L (12-78); ALBUMIN 4.1 g/dL (3.4-5.0); ALKALINE PHOSPHATASE 101 U/L (46-116); ASPARTATE AMINOTRANSFERASE 30 U/L (15-37); BILIRUBIN,TOTAL 0.5 mg/dL (0.1-1.0); TOTAL PROTEIN, SERUM 8.1 g/dL (6.4-8.2)
[2020-02-29] MEDS ORDERED: LORazepam 2 MG TABLET PO ONE (10:30)
[2020-02-29] MEDS ORDERED: QUEtiapine FUMARATE 100 MG TABLET PO ONE (10:30)
[2020-02-29 11:00] LABS: COVID AG,FIA SOURCE NASOPHARYNGEAL
[2020-02-29 11:14] LABS: AMPHET/METH SCREEN,URINE NEGATIVE (NEGATIVE); BARBITURATE SCREEN, URINE NEGATIVE (NEGATIVE); BENZODIAZEPINES SCREEN,URINE NEGATIVE (NEGATIVE); CANNABINOID SCREEN,URINE POSITIVE (NEGATIVE); COCAINE SCREEN,URINE NEGATIVE (NEGATIVE); METHADONE SCREEN, URINE NEGATIVE (NEGATIVE); OPIATE SCREEN,URINE NEGATIVE (NEGATIVE)
[2020-02-29 11:17] LABS: PHENCYCLIDINE SCREEN,URINE NEGATIVE (NEGATIVE)
[2020-02-29] MEDS ORDERED: ZOLPIDEM TARTRATE 10 MG TABLET PO PRN (12:00)
[2020-02-29 14:35] VITALS: BP 129/88
[2020-02-29] MEDS ORDERED: INFLUENZA VIRUS VACCINE QVS 2020-21 (6MO+)/PF 60 MCG/0.5 ML SYRINGE IM ONE (15:30)
[2020-02-29] MEDS ORDERED: ALBUTEROL SULFATE HFA 90 MCG/PUFF 8 GM INHALER IH PRN (15:30)
[2020-02-29] MEDS: NICOTINE 14 MG/24 HOUR PATCH TD SCH (17:10)
[2020-02-29] MEDS: HALOPERIDOL 5 MG TABLET PO PRN (17:11)
[2020-02-29] MEDS: LORazepam 2 MG TABLET PO PRN (17:11)
[2020-02-29 18:22] VITALS: BP 124/86
[2020-03-01 06:09] VITALS: BP 132/81
[2020-03-01] MEDS: LORazepam 2 MG TABLET PO PRN ×3 (07:12→16:25)
[2020-03-01] MEDS: NICOTINE 14 MG/24 HOUR PATCH TD SCH (08:14)
[2020-03-01 08:16] VITALS: BP 114/80
[2020-03-01] MEDS ORDERED: NICOTINE 21 MG/24 HOUR PATCH TD SCH (09:00)
[2020-03-01] MEDS: GABAPENTIN 400 MG CAPSULE PO SCH ×2 (13:13→16:35)
[2020-03-01 20:00] VITALS: BP 129/95
[2020-03-01 20:49] VITALS: BP 159/109
[2020-03-01] MEDS: QUEtiapine FUMARATE 200 MG TABLET PO SCH (21:02)
[2020-03-02 02:00] VITALS: BP 128/89
[2020-03-02] MEDS: LORazepam 2 MG TABLET PO PRN ×4 (06:46→22:31)
[2020-03-02] MEDS: GABAPENTIN 400 MG CAPSULE PO SCH ×3 (08:33→16:10)
[2020-03-02 08:40] VITALS: BP 125/87
[2020-03-02] MEDS: NICOTINE 21 MG/24 HOUR PATCH TD SCH (08:42)
[2020-03-02 16:27] VITALS: BP 133/84
[2020-03-02] MEDS: QUEtiapine FUMARATE 200 MG TABLET PO SCH (20:18)
[2020-03-02] MEDS: HALOPERIDOL 5 MG TABLET PO PRN (22:31)
[2020-03-03 00:25] VITALS: BP 126/93
[2020-03-03] MEDS: LORazepam 2 MG TABLET PO PRN ×3 (05:56→16:13)
[2020-03-03] MEDS: GABAPENTIN 400 MG CAPSULE PO SCH ×3 (08:10→16:13)
[2020-03-03] MEDS: NICOTINE 21 MG/24 HOUR PATCH TD SCH (08:10)
[2020-03-03] MEDS: ASPIRIN 81 MG CHEWABLE TABLET PO SCH (12:32)
[2020-03-03 16:00] VITALS: BP 170/115
[2020-03-03] MEDS: AmLODIPine BESYLATE 5 MG TABLET PO SCH (16:13)
[2020-03-03 17:25] VITALS: BP 169/122
[2020-03-03] MEDS ORDERED: CloNIDine HCL 0.1 MG TABLET PO PRN (17:30)
[2020-03-03 19:01] VITALS: BP 140/99
[2020-03-03] MEDS: QUEtiapine FUMARATE 200 MG TABLET PO SCH (20:28)
[2020-03-04] MEDS: LORazepam 2 MG TABLET PO PRN ×4 (06:02→16:36)
[2020-03-04 08:18] VITALS: BP 105/69
[2020-03-04] MEDS: NICOTINE 21 MG/24 HOUR PATCH TD SCH (08:38)
[2020-03-04] MEDS: GABAPENTIN 400 MG CAPSULE PO SCH ×3 (08:39→16:36)
[2020-03-04] MEDS: AmLODIPine BESYLATE 5 MG TABLET PO SCH (08:39)
[2020-03-04] MEDS: HALOPERIDOL 5 MG TABLET PO PRN ×2 (08:39→13:15)
[2020-03-04] MEDS: ASPIRIN 81 MG CHEWABLE TABLET PO SCH (08:39)
[2020-03-04 16:33] VITALS: BP 124/88
[2020-03-04] MEDS: QUEtiapine FUMARATE 200 MG TABLET PO SCH (20:18)
[2020-03-05 00:30] VITALS: BP 107/80
[2020-03-05] MEDS: LORazepam 2 MG TABLET PO PRN ×3 (06:09→16:34)
[2020-03-05] MEDS: AmLODIPine BESYLATE 5 MG TABLET PO SCH (08:41)
[2020-03-05] MEDS: ASPIRIN 81 MG CHEWABLE TABLET PO SCH (08:41)
[2020-03-05] MEDS: GABAPENTIN 400 MG CAPSULE PO SCH ×3 (08:41→16:34)
[2020-03-05] MEDS: NICOTINE 21 MG/24 HOUR PATCH TD SCH (09:42)
[2020-03-05 16:05] VITALS: BP 123/82
[2020-03-05] MEDS: HALOPERIDOL 5 MG TABLET PO PRN (16:34)
[2020-03-05] MEDS: QUEtiapine FUMARATE 200 MG TABLET PO SCH (20:35)
[2020-03-06 02:53] VITALS: BP 118/80
[2020-03-06] MEDS: AmLODIPine BESYLATE 5 MG TABLET PO SCH (08:47)
[2020-03-06] MEDS: GABAPENTIN 400 MG CAPSULE PO SCH ×3 (08:47→16:00)
[2020-03-06] MEDS: NICOTINE 21 MG/24 HOUR PATCH TD SCH (08:47)
[2020-03-06] MEDS: LORazepam 2 MG TABLET PO PRN ×2 (08:48→15:59)
[2020-03-06] MEDS: ASPIRIN 81 MG CHEWABLE TABLET PO SCH (08:48)
[2020-03-06 08:51] VITALS: BP 120/84
[2020-03-06] MEDS: HALOPERIDOL 5 MG TABLET PO PRN (15:59)
[2020-03-06 16:07] VITALS: BP 115/85
[2020-03-06] MEDS: QUEtiapine FUMARATE 200 MG TABLET PO SCH (20:14)
[2020-03-07] MEDS: LORazepam 2 MG TABLET PO PRN ×2 (05:40→10:23)
[2020-03-07 06:35] VITALS: BP 123/81
[2020-03-07] MEDS: ASPIRIN 81 MG CHEWABLE TABLET PO SCH (08:15)
[2020-03-07] MEDS: AmLODIPine BESYLATE 5 MG TABLET PO SCH (08:15)
[2020-03-07] MEDS: GABAPENTIN 400 MG CAPSULE PO SCH ×2 (08:16→12:34)
[2020-03-07] MEDS: NICOTINE 21 MG/24 HOUR PATCH TD SCH (08:16)
[2020-03-07 08:19] VITALS: BP 119/82
[2020-03-07] MEDS ORDERED: AMLO-257 PO (11:41)
[2020-03-07] MEDS ORDERED: ASPI-728 PO (11:41)
== END 2020-03-07 12:30 | disposition home or self-care (01) | DRG 750 ==
LOC: EMS 08:51 → B3A 11:54 → UNDOADMIN 12:53
PROVIDERS: ADMIT Psychiatry & Neurology Child & Adolescent Psychiatry; ATTEND Psychiatry & Neurology Child & Adolescent Psychiatry
DX: F25.0 Schizoaffective disorder, bipolar type (principal); R45.851 Suicidal ideations; Z91.5 Personal history of self-harm; I10 Essential (primary) hypertension; F12.10 Cannabis abuse, uncomplicated; G47.00 Insomnia, unspecified; F32.9 Major depressive disorder, single episode, unspecified; R56.9 Unspecified convulsions; F19.10 Other psychoactive substance abuse, uncomplicated; F10.10 Alcohol abuse, uncomplicated; Y90.9 Presence of alcohol in blood, level not specified; M19.90 Unspecified osteoarthritis, unspecified site; F15.90 Other stimulant use, unspecified, uncomplicated; J43.9 Emphysema, unspecified; F17.210 Nicotine dependence, cigarettes, uncomplicated; Z59.0 Homelessness; Z20.828 Contact with and (suspected) exposure to other viral communicable diseases; Z28.21 Immunization not carried out because of patient refusal
CPT/HCPCS: 87426; 90686; G0480

== ENCOUNTER 2020-03-16 20:16 | Emergency (ER) | payer MEDICAID ==
[~2020-03-16] VITALS: Ht 193 cm; Wt 92.7 kg
[~2020-03-16 20:16] MED LIST changes: +AMLO-257 PO; +ASPI-728 PO
[2020-03-16 20:50] VITALS: BP 99/52
[2020-03-16 21:32] LABS: EOSINOPHILS % (AUTO) 2.2 % (1.0-6.0); HEMATOCRIT 40.9 % (41-53); HEMOGLOBIN 14.3 g/dL (13.5-17.5); LYMPHOCYTES # (AUTO) 2.6 K/uL (1.0-4.8); MEAN CORPUSCULAR HEMOGLOBIN 34.6 pg (26.0-34.0); MEAN CORPUSCULAR HGB CONC 34.9 G/dL (31.0-37.0); MEAN CORPUSCULAR VOLUME 99 fL (80-100); MONOCYTES # (AUTO) 0.7 K/uL (0.1-1.0); MONOCYTES % (AUTO) 8.5 % (2.0-9.0); NEUTROPHILS # (AUTO) 5.1 K/uL (1.8-7.7); NEUTROPHILS % (AUTO) 58.3 % (40.0-70.0); PLATELET COUNT (AUTO) 266 K/uL (150-450); RED BLOOD CELL COUNT(AUTO) 4.12 MIL/uL (4.50-5.90); RED CELL DISTRIBUTION WIDTH 14.5 % (11.5-14.5)
[2020-03-16 21:40] LABS: ANION GAP 7 mmol/L (8-16); CALCIUM, TOTAL 9.6 mg/dL (8.8-10.5); CARBON DIOXIDE 28 mmol/L (22-29); CHLORIDE 100 mmol/L (98-107); CREATININE 1.04 mg/dL (0.60-1.30); GLOMERULAR FILTR. RATE CALC > 60 mL/min (>60); GLUCOSE,RANDOM 130 mg/dL (70-110); POTASSIUM 3.7 mmol/L (3.5-5.1); SODIUM SERUM 135 mmol/L (136-145); UREA NITROGEN, BLOOD 21 mg/dL (7-18)
[2020-03-16 21:46] LABS: ALANINE AMINOTRANSFERASE 27 U/L (12-78); ALBUMIN 3.4 g/dL (3.4-5.0); ALKALINE PHOSPHATASE 71 U/L (46-116); ASPARTATE AMINOTRANSFERASE 18 U/L (15-37); BILIRUBIN,TOTAL 0.2 mg/dL (0.1-1.0); TOTAL PROTEIN, SERUM 6.7 g/dL (6.4-8.2)
== END 2020-03-16 23:18 | disposition left against medical advice (07) ==
LOC: EMS 20:18
DX: F22 Delusional disorders (principal); Z53.21 Procedure and treatment not carried out due to patient leaving prior to being seen by health care provider
CPT/HCPCS: 36415; 80053; 85025; G0480

== ENCOUNTER 2020-03-27 18:29 | Inpatient (IN) | payer MEDICAID ==
[~2020-03-27] VITALS: Ht 190.5 cm; Wt 85.0 kg
[2020-03-27 20:24] LABS: COVID AG,FIA SOURCE NASOPHARYNGEAL
[2020-03-27 20:29] LABS: BASOPHILS % (AUTO) 0.8 % (0.0-2.0); EOSINOPHILS % (AUTO) 1.8 % (1.0-6.0); HEMATOCRIT 36.1 % (41-53); HEMOGLOBIN 12.4 g/dL (13.5-17.5); LYMPHOCYTES # (AUTO) 1.5 K/uL (1.0-4.8); LYMPHOCYTES % (AUTO) 22.6 % (22.0-44.0); MEAN CORPUSCULAR HEMOGLOBIN 33.7 pg (26.0-34.0); MEAN CORPUSCULAR HGB CONC 34.4 G/dL (31.0-37.0); MEAN CORPUSCULAR VOLUME 98 fL (80-100); MONOCYTES # (AUTO) 0.6 K/uL (0.1-1.0); MONOCYTES % (AUTO) 8.6 % (2.0-9.0); NEUTROPHILS # (AUTO) 4.4 K/uL (1.8-7.7); NEUTROPHILS % (AUTO) 66.2 % (40.0-70.0); PLATELET COUNT (AUTO) 355 K/uL (150-450); RED BLOOD CELL COUNT(AUTO) 3.69 MIL/uL (4.50-5.90); RED CELL DISTRIBUTION WIDTH 14.3 % (11.5-14.5)
[2020-03-27 20:52] LABS: ALANINE AMINOTRANSFERASE 24 U/L (12-78); ALBUMIN 3.4 g/dL (3.4-5.0); ALKALINE PHOSPHATASE 79 U/L (46-116); ANION GAP 10 mmol/L (8-16); ASPARTATE AMINOTRANSFERASE 27 U/L (15-37); BILIRUBIN,TOTAL 0.3 mg/dL (0.1-1.0); CALCIUM, TOTAL 8.5 mg/dL (8.8-10.5); CARBON DIOXIDE 25 mmol/L (22-29); CHLORIDE 96 mmol/L (98-107); CREATININE 0.88 mg/dL (0.60-1.30); GLOMERULAR FILTR. RATE CALC > 60 mL/min (>60); GLUCOSE,RANDOM 112 mg/dL (70-110); POTASSIUM 4.1 mmol/L (3.5-5.1); SODIUM SERUM 131 mmol/L (136-145); TOTAL PROTEIN, SERUM 6.8 g/dL (6.4-8.2); UREA NITROGEN, BLOOD 14 mg/dL (7-18)
[2020-03-27] MEDS ORDERED: HALOPERIDOL 5 MG TABLET PO PRN (21:45)
[2020-03-28] MEDS: ZOLPIDEM TARTRATE 10 MG TABLET PO PRN (02:07)
[2020-03-28] MEDS: LORazepam 2 MG TABLET PO PRN ×4 (02:07→16:57)
[2020-03-28 02:24] VITALS: BP 131/82
[2020-03-28 07:59] LABS: CHOL/HDL RATIO 2.2 (4.2-7.3)
[2020-03-28] MEDS ORDERED: ACETAMINOPHEN 325 MG TABLET PO PRN (08:00)
[2020-03-28] MEDS ORDERED: PETROLATUM,WHITE 28 GM JELLY TP PRN (08:00)
[2020-03-28] MEDS ORDERED: IBUPROFEN 400 MG TABLET PO PRN (08:00)
[2020-03-28] MEDS ORDERED: ALBUTEROL SULFATE HFA 90 MCG/PUFF 8 GM INHALER IH PRN (08:00)
[2020-03-28] MEDS ORDERED: ONDANSETRON HCL 4 MG TABLET PO PRN (08:00)
[2020-03-28] MEDS ORDERED: MAGNESIUM HYDROXIDE SUSPENSION 30 ML UDCUP PO PRN (08:00)
[2020-03-28] MEDS ORDERED: MAG HYDROX/AL HYDROX/SIMETH ES 30 ML SUSPENSION UDCUP PO PRN (08:00)
[2020-03-28] MEDS ORDERED: GuaiFENesin/D-METHORPHAN [SUGAR-FREE] 200-20MG/10 ML SYRUP UDCUP PO PRN (08:00)
[2020-03-28] MEDS ORDERED: CloNIDine HCL 0.1 MG TABLET PO PRN (08:00)
[2020-03-28] MEDS ORDERED: LOPERAMIDE HCL 2 MG CAPSULE PO PRN (08:00)
[2020-03-28] MEDS ORDERED: DOCUSATE SODIUM 100 MG CAPSULE PO PRN (08:00)
[2020-03-28] MEDS ORDERED: NICOTINE 14 MG/24 HOUR PATCH TD PRN (08:00)
[2020-03-28 08:13] VITALS: BP 116/80
[2020-03-28] MEDS ORDERED: NICOTINE 14 MG/24 HOUR PATCH TD SCH (09:00)
[2020-03-28] MEDS: NICOTINE 21 MG/24 HOUR PATCH TD SCH (09:02)
[2020-03-28] MEDS: GABAPENTIN 400 MG CAPSULE PO SCH ×2 (12:48→16:57)
[2020-03-28 19:47] VITALS: BP 139/83
[2020-03-28] MEDS: QUEtiapine FUMARATE 200 MG TABLET PO SCH (20:41)
[2020-03-29] MEDS: GABAPENTIN 400 MG CAPSULE PO SCH ×3 (09:12→17:05)
[2020-03-29] MEDS: NICOTINE 21 MG/24 HOUR PATCH TD SCH (09:12)
[2020-03-29] MEDS: LORazepam 2 MG TABLET PO PRN ×2 (09:42→17:05)
[2020-03-29 16:25] VITALS: BP 116/68
[2020-03-29] MEDS: ZOLPIDEM TARTRATE 10 MG TABLET PO PRN (20:43)
[2020-03-29] MEDS: QUEtiapine FUMARATE 200 MG TABLET PO SCH (20:43)
[2020-03-30 05:39] VITALS: BP 125/78
[2020-03-30 08:50] VITALS: BP 123/79
[2020-03-30] MEDS: GABAPENTIN 400 MG CAPSULE PO SCH (09:00)
[2020-03-30] MEDS: NICOTINE 21 MG/24 HOUR PATCH TD SCH (09:19)
== END 2020-03-30 13:33 | disposition home or self-care (01) | DRG 750 ==
LOC: EMS 18:31 → B2S 21:37 → B3A 03-28 00:44
PROVIDERS: ADMIT Psychiatry & Neurology Child & Adolescent Psychiatry; ATTEND Psychiatry & Neurology Child & Adolescent Psychiatry
DX: F25.0 Schizoaffective disorder, bipolar type (principal); J44.9 Chronic obstructive pulmonary disease, unspecified; R45.851 Suicidal ideations; I10 Essential (primary) hypertension; F32.9 Major depressive disorder, single episode, unspecified; F12.90 Cannabis use, unspecified, uncomplicated; F17.210 Nicotine dependence, cigarettes, uncomplicated; E87.1 Hypo-osmolality and hyponatremia; M19.90 Unspecified osteoarthritis, unspecified site; D64.9 Anemia, unspecified; Z79.899 Other long term (current) drug therapy; Z20.828 Contact with and (suspected) exposure to other viral communicable diseases
CPT/HCPCS: 87081; 87426; G0480; 36415-L1; 36415-TC; 71045-TC; 80061-TC

== ENCOUNTER 2020-04-06 16:13 | Emergency (ER) | payer MEDICAID ==
[~2020-04-06] VITALS: Ht 190.5 cm; Wt 86.4 kg
[~2020-04-06 16:13] MED LIST changes: -AMLO-257 PO; -ASPI-728 PO
[2020-04-06 17:24] LABS: BASOPHILS % (AUTO) 0.7 % (0.0-2.0); EOSINOPHILS % (AUTO) 2.3 % (1.0-6.0); HEMATOCRIT 35.8 % (41-53); HEMOGLOBIN 12.2 g/dL (13.5-17.5); LYMPHOCYTES # (AUTO) 1.4 K/uL (1.0-4.8); LYMPHOCYTES % (AUTO) 23.4 % (22.0-44.0); MEAN CORPUSCULAR HEMOGLOBIN 32.3 pg (26.0-34.0); MEAN CORPUSCULAR VOLUME 95 fL (80-100); MONOCYTES # (AUTO) 0.6 K/uL (0.1-1.0); MONOCYTES % (AUTO) 10.7 % (2.0-9.0); NEUTROPHILS # (AUTO) 3.6 K/uL (1.8-7.7); NEUTROPHILS % (AUTO) 62.9 % (40.0-70.0); PLATELET COUNT (AUTO) 311 K/uL (150-450); RED BLOOD CELL COUNT(AUTO) 3.76 MIL/uL (4.50-5.90); RED CELL DISTRIBUTION WIDTH 14.9 % (11.5-14.5)
[2020-04-06 17:39] LABS: ANION GAP 9 mmol/L (8-16); CALCIUM, TOTAL 8.2 mg/dL (8.8-10.5); CARBON DIOXIDE 26 mmol/L (22-29); CHLORIDE 102 mmol/L (98-107); CREATININE 0.86 mg/dL (0.60-1.30); GLOMERULAR FILTR. RATE CALC > 60 mL/min (>60); GLUCOSE,RANDOM 122 mg/dL (70-110); POTASSIUM 4.1 mmol/L (3.5-5.1); SODIUM SERUM 137 mmol/L (136-145); UREA NITROGEN, BLOOD 11 mg/dL (7-18)
[2020-04-06 17:45] LABS: ALANINE AMINOTRANSFERASE 33 U/L (12-78); ALBUMIN 3.4 g/dL (3.4-5.0); ALKALINE PHOSPHATASE 75 U/L (46-116); ASPARTATE AMINOTRANSFERASE 30 U/L (15-37); BILIRUBIN,TOTAL 0.3 mg/dL (0.1-1.0); TOTAL PROTEIN, SERUM 6.3 g/dL (6.4-8.2)
[2020-04-06 20:05] VITALS: BP 127/71
[2020-04-07] MEDS ORDERED: GABA-1201 PO (11:33)
== END 2020-04-06 20:23 | disposition home or self-care (01) ==
LOC: EMS 16:13
DX: F25.9 Schizoaffective disorder, unspecified (principal); F31.9 Bipolar disorder, unspecified; F41.9 Anxiety disorder, unspecified; F17.210 Nicotine dependence, cigarettes, uncomplicated; J44.9 Chronic obstructive pulmonary disease, unspecified; I10 Essential (primary) hypertension; F12.90 Cannabis use, unspecified, uncomplicated; F19.90 Other psychoactive substance use, unspecified, uncomplicated
CPT/HCPCS: 80053; 85025; 99283; 99406; G0480

== ENCOUNTER 2020-04-06 20:50 | Inpatient (IN) | payer MEDICAID ==
[~2020-04-06] VITALS: Ht 188 cm; Wt 98.9 kg
[2020-04-07 00:01] LABS: ANION GAP 6 mmol/L (8-16); CALCIUM, TOTAL 8.8 mg/dL (8.8-10.5); CARBON DIOXIDE 27 mmol/L (22-29); CHLORIDE 107 mmol/L (98-107); CREATININE 0.81 mg/dL (0.60-1.30); GLOMERULAR FILTR. RATE CALC > 60 mL/min (>60); GLUCOSE,RANDOM 110 mg/dL (70-110); POTASSIUM 4.2 mmol/L (3.5-5.1); SODIUM SERUM 140 mmol/L (136-145); UREA NITROGEN, BLOOD 12 mg/dL (7-18)
[2020-04-07 00:03] LABS: COVID AG,FIA SOURCE NASOPHARYNGEAL
[2020-04-07 00:26] LABS: ALANINE AMINOTRANSFERASE 32 U/L (12-78); ALBUMIN 3.5 g/dL (3.4-5.0); ALKALINE PHOSPHATASE 76 U/L (46-116); ASPARTATE AMINOTRANSFERASE 25 U/L (15-37); BILIRUBIN,TOTAL 0.3 mg/dL (0.1-1.0); CREATINE KINASE, TOTAL ONLY 195 U/L (39-308); TOTAL PROTEIN, SERUM 6.2 g/dL (6.4-8.2)
[2020-04-07 00:31] LABS: BASOPHILS % (AUTO) 0.7 % (0.0-2.0); EOSINOPHILS % (AUTO) 3.4 % (1.0-6.0); HEMATOCRIT 35.4 % (41-53); HEMOGLOBIN 11.8 g/dL (13.5-17.5); LYMPHOCYTES # (AUTO) 1.7 K/uL (1.0-4.8); LYMPHOCYTES % (AUTO) 32.3 % (22.0-44.0); MEAN CORPUSCULAR HEMOGLOBIN 32.1 pg (26.0-34.0); MEAN CORPUSCULAR HGB CONC 33.4 G/dL (31.0-37.0); MEAN CORPUSCULAR VOLUME 96 fL (80-100); MONOCYTES # (AUTO) 0.7 K/uL (0.1-1.0); NEUTROPHILS # (AUTO) 2.6 K/uL (1.8-7.7); NEUTROPHILS % (AUTO) 49.6 % (40.0-70.0); PLATELET COUNT (AUTO) 318 K/uL (150-450); RED BLOOD CELL COUNT(AUTO) 3.68 MIL/uL (4.50-5.90); RED CELL DISTRIBUTION WIDTH 14.6 % (11.5-14.5)
[2020-04-07] MEDS ORDERED: ZOLPIDEM TARTRATE 10 MG TABLET PO PRN (03:45)
[2020-04-07] MEDS ORDERED: LORazepam 2 MG TABLET PO PRN (03:45)
[2020-04-07] MEDS ORDERED: HALOPERIDOL 5 MG TABLET PO PRN (03:45)
[2020-04-07] MEDS ORDERED: NICOTINE 21 MG/24 HOUR PATCH TD ONE (07:00)
[2020-04-07] MEDS ORDERED: HALOPERIDOL LACTATE 5 MG/ML VIAL IM ONE (07:15)
[2020-04-07] MEDS ORDERED: DiphenhydrAMINE HCL 50 MG/ML VIAL IM ONE (07:15)
[2020-04-07] MEDS ORDERED: LORazepam 2 MG/ML VIAL IM ONE (07:15)
[2020-04-07] MEDS ORDERED: GABA-1201 PO (11:33)
[2020-04-07 12:16] VITALS: BP 121/79
[2020-04-07] MEDS ORDERED: INFLUENZA VIRUS VACCINE QVS 2020-21 (6MO+)/PF 60 MCG/0.5 ML SYRINGE IM ONE (12:45)
[2020-04-07] MEDS: GABAPENTIN 400 MG CAPSULE PO SCH ×2 (14:13→16:23)
[2020-04-07] MEDS ORDERED: PNEUMOCOCCAL VACCINE POLYVALENT 0.5 ML VIAL [PPSV23] IM ONE (14:15)
[2020-04-07 16:17] VITALS: BP 131/82
[2020-04-07] MEDS: LORazepam 2 MG TABLET PO PRN (16:23)
[2020-04-07] MEDS: HALOPERIDOL 5 MG TABLET PO PRN (16:23)
[2020-04-07] MEDS: QUEtiapine FUMARATE 200 MG TABLET PO SCH (20:39)
[2020-04-08 05:34] VITALS: BP 128/81
[2020-04-08] MEDS ORDERED: CloNIDine HCL 0.1 MG TABLET PO PRN (07:15)
[2020-04-08] MEDS ORDERED: ALBUTEROL SULFATE HFA 90 MCG/PUFF 8 GM INHALER IH PRN (07:15)
[2020-04-08] MEDS ORDERED: LOPERAMIDE HCL 2 MG CAPSULE PO PRN (07:15)
[2020-04-08] MEDS ORDERED: ONDANSETRON HCL 4 MG TABLET PO PRN (07:15)
[2020-04-08] MEDS ORDERED: GuaiFENesin/D-METHORPHAN [SUGAR-FREE] 200-20MG/10 ML SYRUP UDCUP PO PRN (07:15)
[2020-04-08] MEDS ORDERED: DOCUSATE SODIUM 100 MG CAPSULE PO PRN (07:15)
[2020-04-08] MEDS ORDERED: PETROLATUM,WHITE 28 GM JELLY TP PRN (07:15)
[2020-04-08] MEDS: GABAPENTIN 400 MG CAPSULE PO SCH ×6 (08:44→13:32)
[2020-04-08] MEDS: LORazepam 2 MG TABLET PO PRN (15:17)
[2020-04-08] MEDS: QUEtiapine FUMARATE 200 MG TABLET PO SCH (21:00)
[2020-04-09 16:02] VITALS: BP 146/90
[2020-04-09] MEDS: GABAPENTIN 400 MG CAPSULE PO SCH (16:54)
[2020-04-09] MEDS: LORazepam 2 MG TABLET PO PRN (18:09)
[2020-04-09] MEDS: QUEtiapine FUMARATE 200 MG TABLET PO SCH (20:46)
[2020-04-10 06:26] VITALS: BP 140/94
[2020-04-10] MEDS: LORazepam 2 MG TABLET PO PRN ×3 (06:51→16:35)
[2020-04-10 08:28] VITALS: BP 117/77
[2020-04-10] MEDS: GABAPENTIN 400 MG CAPSULE PO SCH ×3 (08:31→16:18)
[2020-04-10] MEDS: NICOTINE 14 MG/24 HOUR PATCH TD PRN (09:12)
[2020-04-10 16:07] VITALS: BP 135/96
[2020-04-10] MEDS: HALOPERIDOL 5 MG TABLET PO PRN (16:18)
[2020-04-10] MEDS: QUEtiapine FUMARATE 200 MG TABLET PO SCH (20:28)
[2020-04-10] MEDS: ZOLPIDEM TARTRATE 10 MG TABLET PO PRN (20:28)
[2020-04-11 05:54] VITALS: BP 125/86
[2020-04-11] MEDS: NICOTINE 14 MG/24 HOUR PATCH TD PRN (08:51)
[2020-04-11] MEDS: GABAPENTIN 400 MG CAPSULE PO SCH ×3 (08:52→18:27)
[2020-04-11] MEDS: LORazepam 2 MG TABLET PO PRN ×2 (08:52→15:02)
[2020-04-11] MEDS: ACETAMINOPHEN 325 MG TABLET PO PRN (15:02)
[2020-04-11 16:24] VITALS: BP 120/83
[2020-04-11] MEDS: QUEtiapine FUMARATE 200 MG TABLET PO SCH (22:04)
[2020-04-12 06:12] VITALS: BP 122/81
[2020-04-12 08:51] LABS: BASOPHILS % (AUTO) 0.9 % (0.0-2.0); EOSINOPHILS % (AUTO) 2.1 % (1.0-6.0); HEMOGLOBIN 13.1 g/dL (13.5-17.5); LYMPHOCYTES # (AUTO) 1.7 K/uL (1.0-4.8); LYMPHOCYTES % (AUTO) 30.4 % (22.0-44.0); MEAN CORPUSCULAR HEMOGLOBIN 31.2 pg (26.0-34.0); MEAN CORPUSCULAR HGB CONC 32.8 G/dL (31.0-37.0); MEAN CORPUSCULAR VOLUME 95 fL (80-100); MONOCYTES # (AUTO) 0.5 K/uL (0.1-1.0); MONOCYTES % (AUTO) 8.6 % (2.0-9.0); NEUTROPHILS # (AUTO) 3.3 K/uL (1.8-7.7); PLATELET COUNT (AUTO) 327 K/uL (150-450)
[2020-04-12] MEDS: LORazepam 2 MG TABLET PO PRN ×2 (09:27→14:26)
[2020-04-12] MEDS: NICOTINE 21 MG/24 HOUR PATCH TD PRN (09:28)
[2020-04-12] MEDS: GABAPENTIN 400 MG CAPSULE PO SCH ×3 (09:28→17:06)
[2020-04-12 09:55] LABS: ALANINE AMINOTRANSFERASE 26 U/L (12-78); ALBUMIN 3.3 g/dL (3.4-5.0); ALKALINE PHOSPHATASE 87 U/L (46-116); ANION GAP 5 mmol/L (8-16); ASPARTATE AMINOTRANSFERASE 15 U/L (15-37); BILIRUBIN,TOTAL 0.3 mg/dL (0.1-1.0); CALCIUM, TOTAL 8.7 mg/dL (8.8-10.5); CARBON DIOXIDE 26 mmol/L (22-29); CHLORIDE 105 mmol/L (98-107); CREATININE 0.83 mg/dL (0.60-1.30); FREE T4 (FREE THYROXINE) 0.91 ng/dL (0.76-1.46); GLOMERULAR FILTR. RATE CALC > 60 mL/min (>60); GLUCOSE,RANDOM 102 mg/dL (70-110); POTASSIUM 5.1 mmol/L (3.5-5.1); SODIUM SERUM 136 mmol/L (136-145); THYROID STIMULATING HORMONE 0.48 uIU/mL (0.36-3.74); TOTAL PROTEIN, SERUM 6.5 g/dL (6.4-8.2); UREA NITROGEN, BLOOD 18 mg/dL (7-18)
[2020-04-12 10:49] VITALS: BP 127/87
[2020-04-12] MEDS: ACETAMINOPHEN 325 MG TABLET PO PRN (11:36)
[2020-04-12 16:06] VITALS: BP 119/79
[2020-04-12] MEDS: HALOPERIDOL 5 MG TABLET PO PRN (17:06)
[2020-04-12] MEDS: QUEtiapine FUMARATE 200 MG TABLET PO SCH (21:00)
[2020-04-12] MEDS: ZOLPIDEM TARTRATE 10 MG TABLET PO PRN (21:00)
[2020-04-13 03:23] VITALS: BP 124/77
[2020-04-13 08:43] VITALS: BP 130/70
[2020-04-13] MEDS: GABAPENTIN 400 MG CAPSULE PO SCH ×3 (09:57→16:43)
[2020-04-13] MEDS: LORazepam 2 MG TABLET PO PRN ×2 (09:57→14:13)
[2020-04-13] MEDS: NICOTINE 21 MG/24 HOUR PATCH TD PRN (10:21)
[2020-04-13] MEDS: ACETAMINOPHEN 325 MG TABLET PO PRN (12:46)
[2020-04-13] MEDS: HALOPERIDOL 5 MG TABLET PO PRN (14:13)
[2020-04-13] MEDS: FERROUS SULFATE 325 MG EC TABLET PO SCH (16:45)
[2020-04-13 18:24] VITALS: BP 103/64
[2020-04-13] MEDS: QUEtiapine FUMARATE 200 MG TABLET PO SCH (20:50)
[2020-04-13] MEDS: ZOLPIDEM TARTRATE 10 MG TABLET PO PRN (21:31)
[2020-04-14 05:50] VITALS: BP 113/85
[2020-04-14] MEDS: LORazepam 2 MG TABLET PO PRN ×3 (06:22→17:07)
[2020-04-14] MEDS: HALOPERIDOL 5 MG TABLET PO PRN ×2 (06:22→12:38)
[2020-04-14] MEDS: FERROUS SULFATE 325 MG EC TABLET PO SCH ×3 (06:22→16:43)
[2020-04-14 08:03] VITALS: BP 115/81
[2020-04-14] MEDS: GABAPENTIN 400 MG CAPSULE PO SCH ×3 (08:53→16:43)
[2020-04-14] MEDS: NICOTINE 21 MG/24 HOUR PATCH TD PRN (11:19)
[2020-04-14 16:04] VITALS: BP 102/71
[2020-04-14] MEDS: QUEtiapine FUMARATE 200 MG TABLET PO SCH (20:22)
[2020-04-14] MEDS: ZOLPIDEM TARTRATE 10 MG TABLET PO PRN (20:34)
[2020-04-15 01:14] VITALS: BP 109/69
[2020-04-15] MEDS: LORazepam 2 MG TABLET PO PRN ×4 (05:45→20:19)
[2020-04-15] MEDS: FERROUS SULFATE 325 MG EC TABLET PO SCH ×3 (06:27→16:59)
[2020-04-15] MEDS: GABAPENTIN 400 MG CAPSULE PO SCH ×3 (09:28→16:59)
[2020-04-15] MEDS: MULTIVITAMINS WITH MINERALS, THERAPEUTIC TABLET PO SCH (09:28)
[2020-04-15] MEDS: FOLIC ACID 1 MG TABLET PO SCH (09:28)
[2020-04-15] MEDS: THIAMINE 100 MG TABLET PO SCH (09:28)
[2020-04-15] MEDS: NICOTINE 21 MG/24 HOUR PATCH TD PRN (09:52)
[2020-04-15] MEDS: HALOPERIDOL 5 MG TABLET PO PRN (13:19)
[2020-04-15] MEDS: QUEtiapine FUMARATE 200 MG TABLET PO SCH (20:19)
[2020-04-16] MEDS: FERROUS SULFATE 325 MG EC TABLET PO SCH ×3 (06:14→16:54)
[2020-04-16 08:03] VITALS: BP 119/77
[2020-04-16] MEDS: FOLIC ACID 1 MG TABLET PO SCH (09:12)
[2020-04-16] MEDS: GABAPENTIN 400 MG CAPSULE PO SCH ×3 (09:12→16:54)
[2020-04-16] MEDS: HALOPERIDOL 5 MG TABLET PO PRN ×2 (09:13→14:33)
[2020-04-16] MEDS: LORazepam 2 MG TABLET PO PRN ×3 (09:13→17:19)
[2020-04-16] MEDS: THIAMINE 100 MG TABLET PO SCH (09:13)
[2020-04-16] MEDS: MULTIVITAMINS WITH MINERALS, THERAPEUTIC TABLET PO SCH (09:13)
[2020-04-16] MEDS: NICOTINE 21 MG/24 HOUR PATCH TD PRN (10:35)
[2020-04-16 17:07] VITALS: BP 109/79
[2020-04-16] MEDS: ZOLPIDEM TARTRATE 10 MG TABLET PO PRN (20:22)
[2020-04-16] MEDS: QUEtiapine FUMARATE 200 MG TABLET PO SCH (20:22)
[2020-04-17] MEDS: FERROUS SULFATE 325 MG EC TABLET PO SCH ×3 (06:34→17:31)
[2020-04-17] MEDS: MULTIVITAMINS WITH MINERALS, THERAPEUTIC TABLET PO SCH (08:31)
[2020-04-17] MEDS: THIAMINE 100 MG TABLET PO SCH (08:31)
[2020-04-17] MEDS: GABAPENTIN 400 MG CAPSULE PO SCH ×3 (08:31→17:31)
[2020-04-17] MEDS: FOLIC ACID 1 MG TABLET PO SCH (08:31)
[2020-04-17] MEDS: LORazepam 2 MG TABLET PO PRN ×5 (08:56→22:50)
[2020-04-17] MEDS: HALOPERIDOL 5 MG TABLET PO PRN ×2 (08:57→13:05)
[2020-04-17 09:24] VITALS: BP 135/80
[2020-04-17] MEDS: NICOTINE 21 MG/24 HOUR PATCH TD PRN (09:27)
[2020-04-17 16:08] VITALS: BP 131/81
[2020-04-17] MEDS: QUEtiapine FUMARATE 200 MG TABLET PO SCH (21:27)
[2020-04-17] MEDS: ZOLPIDEM TARTRATE 10 MG TABLET PO PRN (21:28)
[2020-04-18 04:00] VITALS: BP 158/80
[2020-04-18] MEDS: LORazepam 2 MG TABLET PO PRN ×3 (06:21→16:49)
[2020-04-18] MEDS: FERROUS SULFATE 325 MG EC TABLET PO SCH ×3 (06:21→16:49)
[2020-04-18 08:09] VITALS: BP 124/81
[2020-04-18] MEDS: FOLIC ACID 1 MG TABLET PO SCH (08:58)
[2020-04-18] MEDS: MULTIVITAMINS WITH MINERALS, THERAPEUTIC TABLET PO SCH (08:58)
[2020-04-18] MEDS: GABAPENTIN 400 MG CAPSULE PO SCH ×3 (08:58→16:49)
[2020-04-18] MEDS: THIAMINE 100 MG TABLET PO SCH (08:58)
[2020-04-18] MEDS: HALOPERIDOL 5 MG TABLET PO PRN ×2 (09:30→14:20)
[2020-04-18] MEDS: NICOTINE 21 MG/24 HOUR PATCH TD PRN (09:30)
[2020-04-18 16:18] VITALS: BP 111/79
[2020-04-18] MEDS: ZOLPIDEM TARTRATE 10 MG TABLET PO PRN (20:04)
[2020-04-18] MEDS: QUEtiapine FUMARATE 200 MG TABLET PO SCH (20:04)
[2020-04-19] MEDS: NICOTINE 21 MG/24 HOUR PATCH TD PRN (03:34)
[2020-04-19] MEDS: LORazepam 2 MG TABLET PO PRN ×3 (06:03→16:42)
[2020-04-19] MEDS: FERROUS SULFATE 325 MG EC TABLET PO SCH ×3 (06:03→16:42)
[2020-04-19 06:20] VITALS: BP 116/74
[2020-04-19] MEDS: MULTIVITAMINS WITH MINERALS, THERAPEUTIC TABLET PO SCH (08:36)
[2020-04-19] MEDS: THIAMINE 100 MG TABLET PO SCH (08:36)
[2020-04-19] MEDS: GABAPENTIN 400 MG CAPSULE PO SCH ×3 (08:37→16:42)
[2020-04-19] MEDS: FOLIC ACID 1 MG TABLET PO SCH (08:37)
[2020-04-19] MEDS: HALOPERIDOL 5 MG TABLET PO PRN ×2 (08:37→13:46)
[2020-04-19 09:18] VITALS: BP 121/76
[2020-04-19 12:47] LABS: AMPHET/METH SCREEN,URINE NEGATIVE (NEGATIVE); BARBITURATE SCREEN, URINE NEGATIVE (NEGATIVE); BENZODIAZEPINES SCREEN,URINE NEGATIVE (NEGATIVE); CANNABINOID SCREEN,URINE NEGATIVE (NEGATIVE); COCAINE SCREEN,URINE NEGATIVE (NEGATIVE); METHADONE SCREEN, URINE NEGATIVE (NEGATIVE); OPIATE SCREEN,URINE NEGATIVE (NEGATIVE)
[2020-04-19] MEDS: ACETAMINOPHEN 325 MG TABLET PO PRN (12:52)
[2020-04-19 12:53] VITALS: BP 122/87
[2020-04-19 13:16] LABS: APPEARANCE,URINE CLEAR (CLEAR); BILIRUBIN,URINE NEGATIVE (NEGATIVE); GLUCOSE, URINE (UA) NEGATIVE (NEGATIVE); KETONES,URINE NEGATIVE (NEGATIVE); LEUKOCYTE ESTERASE ,URINE NEGATIVE (NEGATIVE); NITRATE,URINE NEGATIVE (NEGATIVE); OCCULT BLOOD,URINE NEGATIVE (NEGATIVE); PH,URINE 6.5 (5.0-8.0); PROTEIN,URINE NEGATIVE (NEGATIVE); UROBILINOGEN,URINE 0.2 mg/dL (<=1.0)
[2020-04-19 13:19] LABS: PHENCYCLIDINE SCREEN,URINE NEGATIVE (NEGATIVE)
[2020-04-19 16:24] VITALS: BP 120/81
[2020-04-19] MEDS: ZOLPIDEM TARTRATE 10 MG TABLET PO PRN (20:39)
[2020-04-19] MEDS: QUEtiapine FUMARATE 200 MG TABLET PO SCH (20:39)
[2020-04-20 01:54] VITALS: BP 118/78
[2020-04-20] MEDS: LORazepam 2 MG TABLET PO PRN ×3 (05:41→16:36)
[2020-04-20] MEDS: HALOPERIDOL 5 MG TABLET PO PRN ×3 (05:41→16:36)
[2020-04-20] MEDS: FERROUS SULFATE 325 MG EC TABLET PO SCH ×3 (06:11→16:36)
[2020-04-20 08:03] VITALS: BP 111/68
[2020-04-20] MEDS: GABAPENTIN 400 MG CAPSULE PO SCH ×3 (09:13→16:36)
[2020-04-20] MEDS: FOLIC ACID 1 MG TABLET PO SCH (09:13)
[2020-04-20] MEDS: THIAMINE 100 MG TABLET PO SCH (09:13)
[2020-04-20] MEDS: MULTIVITAMINS WITH MINERALS, THERAPEUTIC TABLET PO SCH (09:13)
[2020-04-20] MEDS: NICOTINE 21 MG/24 HOUR PATCH TD PRN (09:13)
[2020-04-20 16:03] VITALS: BP 133/84
[2020-04-20] MEDS: QUEtiapine FUMARATE 200 MG TABLET PO SCH (20:34)
[2020-04-20] MEDS: ZOLPIDEM TARTRATE 10 MG TABLET PO PRN (20:34)
[2020-04-21 01:08] VITALS: BP 125/70
[2020-04-21] MEDS: LORazepam 2 MG TABLET PO PRN ×3 (05:01→16:27)
[2020-04-21] MEDS: HALOPERIDOL 5 MG TABLET PO PRN ×3 (05:01→16:27)
[2020-04-21] MEDS: IBUPROFEN 400 MG TABLET PO PRN (05:10)
[2020-04-21] MEDS: FERROUS SULFATE 325 MG EC TABLET PO SCH ×3 (05:55→16:27)
[2020-04-21] MEDS: THIAMINE 100 MG TABLET PO SCH (08:46)
[2020-04-21] MEDS: MULTIVITAMINS WITH MINERALS, THERAPEUTIC TABLET PO SCH (08:46)
[2020-04-21] MEDS: GABAPENTIN 400 MG CAPSULE PO SCH ×3 (08:47→16:27)
[2020-04-21] MEDS: FOLIC ACID 1 MG TABLET PO SCH (09:31)
[2020-04-21] MEDS: NICOTINE 21 MG/24 HOUR PATCH TD PRN (11:20)
[2020-04-21 16:04] VITALS: BP 127/90
[2020-04-21] MEDS: QUEtiapine FUMARATE 200 MG TABLET PO SCH (20:31)
[2020-04-21] MEDS: ZOLPIDEM TARTRATE 10 MG TABLET PO PRN (20:31)
[2020-04-22 03:59] VITALS: BP 121/72
[2020-04-22] MEDS: LORazepam 2 MG TABLET PO PRN ×4 (05:23→21:16)
[2020-04-22] MEDS: HALOPERIDOL 5 MG TABLET PO PRN ×3 (05:23→14:08)
[2020-04-22] MEDS: IBUPROFEN 400 MG TABLET PO PRN (05:24)
[2020-04-22] MEDS: FERROUS SULFATE 325 MG EC TABLET PO SCH ×3 (05:55→16:43)
[2020-04-22] MEDS: NICOTINE 21 MG/24 HOUR PATCH TD PRN (08:54)
[2020-04-22] MEDS: GABAPENTIN 400 MG CAPSULE PO SCH ×3 (08:54→16:42)
[2020-04-22] MEDS: THIAMINE 100 MG TABLET PO SCH (08:54)
[2020-04-22] MEDS: MULTIVITAMINS WITH MINERALS, THERAPEUTIC TABLET PO SCH (08:54)
[2020-04-22] MEDS: FOLIC ACID 1 MG TABLET PO SCH (08:54)
[2020-04-22 16:24] VITALS: BP 126/92
[2020-04-22] MEDS: QUEtiapine FUMARATE 200 MG TABLET PO SCH (21:04)
[2020-04-23 01:12] VITALS: BP 108/78
[2020-04-23] MEDS: ZOLPIDEM TARTRATE 10 MG TABLET PO PRN ×2 (01:26→20:26)
[2020-04-23] MEDS: MAG HYDROX/AL HYDROX/SIMETH ES 30 ML SUSPENSION UDCUP PO PRN (01:26)
[2020-04-23] MEDS: FERROUS SULFATE 325 MG EC TABLET PO SCH ×3 (06:14→16:03)
[2020-04-23] MEDS: LORazepam 2 MG TABLET PO PRN ×3 (06:42→16:03)
[2020-04-23] MEDS: FOLIC ACID 1 MG TABLET PO SCH (09:03)
[2020-04-23] MEDS: THIAMINE 100 MG TABLET PO SCH (09:03)
[2020-04-23] MEDS: GABAPENTIN 400 MG CAPSULE PO SCH ×3 (09:04→16:03)
[2020-04-23] MEDS: MULTIVITAMINS WITH MINERALS, THERAPEUTIC TABLET PO SCH (09:04)
[2020-04-23] MEDS: NICOTINE 21 MG/24 HOUR PATCH TD PRN (09:41)
[2020-04-23 16:25] VITALS: BP 107/77
[2020-04-23] MEDS: QUEtiapine FUMARATE 200 MG TABLET PO SCH (20:26)
[2020-04-24 04:03] VITALS: BP 122/89
[2020-04-24] MEDS: LORazepam 2 MG TABLET PO PRN ×4 (04:08→17:02)
[2020-04-24] MEDS: FERROUS SULFATE 325 MG EC TABLET PO SCH ×3 (06:15→17:02)
[2020-04-24 08:01] VITALS: BP 130/80
[2020-04-24] MEDS: THIAMINE 100 MG TABLET PO SCH (08:32)
[2020-04-24] MEDS: FOLIC ACID 1 MG TABLET PO SCH (08:32)
[2020-04-24] MEDS: MULTIVITAMINS WITH MINERALS, THERAPEUTIC TABLET PO SCH (08:32)
[2020-04-24] MEDS: GABAPENTIN 400 MG CAPSULE PO SCH ×3 (08:32→17:02)
[2020-04-24] MEDS: NICOTINE 21 MG/24 HOUR PATCH TD PRN (08:45)
[2020-04-24] MEDS: HALOPERIDOL 5 MG TABLET PO PRN (11:47)
[2020-04-24 13:31] VITALS: BP 135/77
[2020-04-24] MEDS: ACETAMINOPHEN 325 MG TABLET PO PRN (13:31)
[2020-04-24 16:03] VITALS: BP 122/75
[2020-04-24] MEDS: ZOLPIDEM TARTRATE 10 MG TABLET PO PRN (20:38)
[2020-04-24] MEDS: QUEtiapine FUMARATE 200 MG TABLET PO SCH (20:38)
[2020-04-25 03:21] VITALS: BP 120/64
[2020-04-25] MEDS: LORazepam 2 MG TABLET PO PRN ×3 (05:29→17:00)
[2020-04-25] MEDS: FERROUS SULFATE 325 MG EC TABLET PO SCH ×2 (07:16→12:00)
[2020-04-25] MEDS: FOLIC ACID 1 MG TABLET PO SCH (09:15)
[2020-04-25] MEDS: THIAMINE 100 MG TABLET PO SCH (09:16)
[2020-04-25] MEDS: GABAPENTIN 400 MG CAPSULE PO SCH ×3 (09:16→17:00)
[2020-04-25] MEDS: MULTIVITAMINS WITH MINERALS, THERAPEUTIC TABLET PO SCH (09:16)
[2020-04-25] MEDS: NICOTINE 21 MG/24 HOUR PATCH TD PRN (10:33)
[2020-04-25 16:14] VITALS: BP 126/90
[2020-04-25] MEDS: ZOLPIDEM TARTRATE 10 MG TABLET PO PRN (21:48)
[2020-04-25] MEDS: QUEtiapine FUMARATE 200 MG TABLET PO SCH (21:48)
[2020-04-26 01:11] VITALS: BP 101/59
[2020-04-26] MEDS: ACETAMINOPHEN 325 MG TABLET PO PRN ×2 (01:14→12:47)
[2020-04-26] MEDS: LORazepam 2 MG TABLET PO PRN ×4 (01:14→17:00)
[2020-04-26] MEDS: FERROUS SULFATE 325 MG EC TABLET PO SCH ×3 (06:21→16:09)
[2020-04-26] MEDS: THIAMINE 100 MG TABLET PO SCH (09:34)
[2020-04-26] MEDS: FOLIC ACID 1 MG TABLET PO SCH (09:34)
[2020-04-26] MEDS: GABAPENTIN 400 MG CAPSULE PO SCH ×3 (09:35→16:09)
[2020-04-26] MEDS: MULTIVITAMINS WITH MINERALS, THERAPEUTIC TABLET PO SCH (09:35)
[2020-04-26] MEDS: NICOTINE 21 MG/24 HOUR PATCH TD PRN (09:44)
[2020-04-26] MEDS: CYCLOBENZAPRINE HCL 10 MG TABLET PO PRN (13:59)
[2020-04-26 16:06] VITALS: BP 128/89
[2020-04-26] MEDS: HALOPERIDOL 5 MG TABLET PO PRN ×2 (17:07→23:30)
[2020-04-26] MEDS: QUEtiapine FUMARATE 200 MG TABLET PO SCH (20:17)
[2020-04-26] MEDS: ZOLPIDEM TARTRATE 10 MG TABLET PO PRN (23:29)
[2020-04-27] MEDS: LORazepam 2 MG TABLET PO PRN ×4 (05:52→22:46)
[2020-04-27] MEDS: FERROUS SULFATE 325 MG EC TABLET PO SCH ×3 (06:09→17:00)
[2020-04-27] MEDS: GABAPENTIN 400 MG CAPSULE PO SCH ×3 (08:19→16:02)
[2020-04-27] MEDS: FOLIC ACID 1 MG TABLET PO SCH (08:19)
[2020-04-27] MEDS: HALOPERIDOL 5 MG TABLET PO PRN ×2 (08:19→16:03)
[2020-04-27] MEDS: MULTIVITAMINS WITH MINERALS, THERAPEUTIC TABLET PO SCH (08:19)
[2020-04-27] MEDS: THIAMINE 100 MG TABLET PO SCH (08:21)
[2020-04-27] MEDS: NICOTINE 21 MG/24 HOUR PATCH TD PRN (08:22)
[2020-04-27] MEDS: CYCLOBENZAPRINE HCL 10 MG TABLET PO PRN (12:04)
[2020-04-27] MEDS: QUEtiapine FUMARATE 200 MG TABLET PO SCH (20:31)
[2020-04-28] MEDS: FERROUS SULFATE 325 MG EC TABLET PO SCH ×3 (05:54→16:42)
[2020-04-28] MEDS: LORazepam 2 MG TABLET PO PRN ×3 (06:26→16:42)
[2020-04-28 06:30] VITALS: BP 103/59
[2020-04-28 08:03] VITALS: BP 137/88
[2020-04-28] MEDS: GABAPENTIN 400 MG CAPSULE PO SCH ×3 (08:22→16:41)
[2020-04-28] MEDS: HALOPERIDOL 5 MG TABLET PO PRN ×2 (08:22→13:34)
[2020-04-28] MEDS: FOLIC ACID 1 MG TABLET PO SCH (08:22)
[2020-04-28] MEDS: THIAMINE 100 MG TABLET PO SCH (08:22)
[2020-04-28] MEDS: MULTIVITAMINS WITH MINERALS, THERAPEUTIC TABLET PO SCH (08:22)
[2020-04-28] MEDS: NICOTINE 21 MG/24 HOUR PATCH TD PRN (08:26)
[2020-04-28] MEDS: MAG HYDROX/AL HYDROX/SIMETH ES 30 ML SUSPENSION UDCUP PO PRN (10:42)
[2020-04-28 14:17] VITALS: BP 139/86
[2020-04-28] MEDS: ACETAMINOPHEN 325 MG TABLET PO PRN (14:17)
[2020-04-28 16:08] VITALS: BP 133/95
[2020-04-28] MEDS: CYCLOBENZAPRINE HCL 10 MG TABLET PO PRN (17:02)
[2020-04-28] MEDS: QUEtiapine FUMARATE 200 MG TABLET PO SCH (21:16)
[2020-04-28] MEDS: ZOLPIDEM TARTRATE 10 MG TABLET PO PRN (21:24)
[2020-04-29 00:53] VITALS: BP 124/89
[2020-04-29] MEDS: LORazepam 2 MG TABLET PO PRN ×4 (00:57→20:39)
[2020-04-29] MEDS: FERROUS SULFATE 325 MG EC TABLET PO SCH ×3 (06:17→16:32)
[2020-04-29 08:18] VITALS: BP 115/76
[2020-04-29] MEDS: GABAPENTIN 400 MG CAPSULE PO SCH ×3 (09:02→16:32)
[2020-04-29] MEDS: MULTIVITAMINS WITH MINERALS, THERAPEUTIC TABLET PO SCH (09:03)
[2020-04-29] MEDS: FOLIC ACID 1 MG TABLET PO SCH (09:03)
[2020-04-29] MEDS: THIAMINE 100 MG TABLET PO SCH (09:03)
[2020-04-29] MEDS: NICOTINE 21 MG/24 HOUR PATCH TD PRN (09:37)
[2020-04-29] MEDS: CYCLOBENZAPRINE HCL 10 MG TABLET PO PRN (12:51)
[2020-04-29 16:17] VITALS: BP 125/92
[2020-04-29] MEDS: HALOPERIDOL 5 MG TABLET PO PRN (16:33)
[2020-04-29] MEDS: MAGNESIUM HYDROXIDE SUSPENSION 30 ML UDCUP PO PRN (17:02)
[2020-04-29] MEDS: QUEtiapine FUMARATE 200 MG TABLET PO SCH (20:39)
[2020-04-29] MEDS: ZOLPIDEM TARTRATE 10 MG TABLET PO PRN (20:39)
[2020-04-30 05:20] VITALS: BP 120/86
[2020-04-30] MEDS: FERROUS SULFATE 325 MG EC TABLET PO SCH ×3 (06:56→16:08)
[2020-04-30] MEDS: LORazepam 2 MG TABLET PO PRN ×4 (07:06→20:13)
[2020-04-30] MEDS: HALOPERIDOL 5 MG TABLET PO PRN ×4 (07:06→20:13)
[2020-04-30] MEDS ORDERED: TUBERCULIN, PURIFIED PROTEIN DERIVATIVE 5 TU/0.1 ML SYRINGE ID ONE (08:00)
[2020-04-30] MEDS: FOLIC ACID 1 MG TABLET PO SCH (08:19)
[2020-04-30] MEDS: MULTIVITAMINS WITH MINERALS, THERAPEUTIC TABLET PO SCH (08:19)
[2020-04-30] MEDS: GABAPENTIN 400 MG CAPSULE PO SCH ×3 (08:19→16:08)
[2020-04-30] MEDS: THIAMINE 100 MG TABLET PO SCH (08:20)
[2020-04-30] MEDS: NICOTINE 21 MG/24 HOUR PATCH TD PRN (08:28)
[2020-04-30 14:08] VITALS: BP 116/82
[2020-04-30] MEDS: CYCLOBENZAPRINE HCL 10 MG TABLET PO PRN (14:08)
[2020-04-30 16:04] VITALS: BP 130/80
[2020-04-30] MEDS: ACETAMINOPHEN 325 MG TABLET PO PRN (16:09)
[2020-04-30] MEDS: QUEtiapine FUMARATE 200 MG TABLET PO SCH (20:13)
[2020-05-01 05:15] VITALS: BP 127/97
[2020-05-01] MEDS: HALOPERIDOL 5 MG TABLET PO PRN ×3 (06:40→17:55)
[2020-05-01] MEDS: CYCLOBENZAPRINE HCL 10 MG TABLET PO PRN (06:40)
[2020-05-01] MEDS: THIAMINE 100 MG TABLET PO SCH (09:10)
[2020-05-01] MEDS: FOLIC ACID 1 MG TABLET PO SCH (09:10)
[2020-05-01] MEDS: MULTIVITAMINS WITH MINERALS, THERAPEUTIC TABLET PO SCH (09:10)
[2020-05-01] MEDS: GABAPENTIN 400 MG CAPSULE PO SCH ×3 (09:10→16:07)
[2020-05-01] MEDS: LORazepam 2 MG TABLET PO PRN ×3 (09:25→17:55)
[2020-05-01] MEDS: NICOTINE 21 MG/24 HOUR PATCH TD PRN (09:26)
[2020-05-01] MEDS: ACETAMINOPHEN 325 MG TABLET PO PRN (12:41)
[2020-05-01 16:23] VITALS: BP 112/75
[2020-05-01] MEDS: ZOLPIDEM TARTRATE 10 MG TABLET PO PRN (20:29)
[2020-05-01] MEDS: QUEtiapine FUMARATE 200 MG TABLET PO SCH (20:29)
[2020-05-02 06:14] VITALS: BP 136/90
[2020-05-02] MEDS: LORazepam 2 MG TABLET PO PRN ×3 (06:41→16:42)
[2020-05-02] MEDS: GABAPENTIN 400 MG CAPSULE PO SCH ×3 (08:06→16:41)
[2020-05-02] MEDS: FOLIC ACID 1 MG TABLET PO SCH (08:06)
[2020-05-02] MEDS: THIAMINE 100 MG TABLET PO SCH (08:06)
[2020-05-02] MEDS: MULTIVITAMINS WITH MINERALS, THERAPEUTIC TABLET PO SCH (08:06)
[2020-05-02] MEDS: HALOPERIDOL 5 MG TABLET PO PRN ×3 (08:25→20:52)
[2020-05-02] MEDS: NICOTINE 21 MG/24 HOUR PATCH TD PRN (08:26)
[2020-05-02] MEDS: CYCLOBENZAPRINE HCL 10 MG TABLET PO PRN (11:15)
[2020-05-02 14:52] LABS: COVID AG,FIA SOURCE NASOPHARYNGEAL
[2020-05-02 16:18] VITALS: BP 122/77
[2020-05-02] MEDS: QUEtiapine FUMARATE 200 MG TABLET PO SCH (20:52)
[2020-05-02] MEDS: ZOLPIDEM TARTRATE 10 MG TABLET PO PRN (20:53)
[2020-05-03] MEDS: LORazepam 2 MG TABLET PO PRN ×4 (00:48→15:42)
[2020-05-03 01:28] VITALS: BP 128/84
[2020-05-03 08:04] VITALS: BP 116/78
[2020-05-03] MEDS: GABAPENTIN 400 MG CAPSULE PO SCH ×3 (08:52→16:29)
[2020-05-03] MEDS: MULTIVITAMINS WITH MINERALS, THERAPEUTIC TABLET PO SCH (08:52)
[2020-05-03] MEDS: FOLIC ACID 1 MG TABLET PO SCH (08:52)
[2020-05-03] MEDS: THIAMINE 100 MG TABLET PO SCH (08:52)
[2020-05-03] MEDS: HALOPERIDOL 5 MG TABLET PO PRN ×2 (09:39→15:42)
[2020-05-03] MEDS: NICOTINE 21 MG/24 HOUR PATCH TD PRN (10:31)
[2020-05-03 16:04] VITALS: BP 120/84
[2020-05-03] MEDS: MAGNESIUM HYDROXIDE SUSPENSION 30 ML UDCUP PO PRN (16:16)
[2020-05-03 17:15] VITALS: BP 121/75
[2020-05-03] MEDS: CYCLOBENZAPRINE HCL 10 MG TABLET PO PRN (17:30)
[2020-05-03] MEDS: QUEtiapine FUMARATE 200 MG TABLET PO SCH (20:28)
[2020-05-04 00:25] VITALS: BP 115/84
[2020-05-04] MEDS: LORazepam 2 MG TABLET PO PRN ×4 (00:28→16:06)
[2020-05-04] MEDS: HALOPERIDOL 5 MG TABLET PO PRN ×3 (06:39→20:46)
[2020-05-04 08:02] VITALS: BP 135/82
[2020-05-04] MEDS: GABAPENTIN 400 MG CAPSULE PO SCH ×3 (09:02→16:06)
[2020-05-04] MEDS: THIAMINE 100 MG TABLET PO SCH (09:02)
[2020-05-04] MEDS: FOLIC ACID 1 MG TABLET PO SCH (09:02)
[2020-05-04] MEDS: MULTIVITAMINS WITH MINERALS, THERAPEUTIC TABLET PO SCH (09:03)
[2020-05-04] MEDS: NICOTINE 21 MG/24 HOUR PATCH TD PRN (11:30)
[2020-05-04 17:19] VITALS: BP_SYST 109; BP_SYST 127; BP_DIAS 72; BP_DIAS 87
[2020-05-04 20:30] VITALS: BP 129/80
[2020-05-04] MEDS: QUEtiapine FUMARATE 200 MG TABLET PO SCH (20:45)
[2020-05-04] MEDS: CYCLOBENZAPRINE HCL 10 MG TABLET PO PRN (20:46)
[2020-05-05 01:34] VITALS: BP 128/68
[2020-05-05] MEDS: HALOPERIDOL 5 MG TABLET PO PRN ×3 (06:09→16:17)
[2020-05-05] MEDS: LORazepam 2 MG TABLET PO PRN ×3 (06:09→16:17)
[2020-05-05 08:03] VITALS: BP 125/84
[2020-05-05] MEDS: MULTIVITAMINS WITH MINERALS, THERAPEUTIC TABLET PO SCH (08:38)
[2020-05-05] MEDS: GABAPENTIN 400 MG CAPSULE PO SCH ×3 (08:38→16:18)
[2020-05-05] MEDS: THIAMINE 100 MG TABLET PO SCH (08:38)
[2020-05-05] MEDS: FOLIC ACID 1 MG TABLET PO SCH (08:38)
[2020-05-05] MEDS: NICOTINE 21 MG/24 HOUR PATCH TD PRN (08:39)
[2020-05-05] MEDS: CYCLOBENZAPRINE HCL 10 MG TABLET PO PRN (10:59)
[2020-05-05 16:06] VITALS: BP 128/93
[2020-05-05] MEDS: ZOLPIDEM TARTRATE 10 MG TABLET PO PRN (20:24)
[2020-05-05] MEDS: QUEtiapine FUMARATE 200 MG TABLET PO SCH (20:24)
[2020-05-06 04:20] VITALS: BP 122/78
[2020-05-06] MEDS: HALOPERIDOL 5 MG TABLET PO PRN ×2 (05:34→10:21)
[2020-05-06] MEDS: LORazepam 2 MG TABLET PO PRN ×3 (05:34→17:15)
[2020-05-06 08:03] VITALS: BP 118/82
[2020-05-06] MEDS: MULTIVITAMINS WITH MINERALS, THERAPEUTIC TABLET PO SCH (09:10)
[2020-05-06] MEDS: GABAPENTIN 400 MG CAPSULE PO SCH ×3 (09:10→17:15)
[2020-05-06] MEDS: FOLIC ACID 1 MG TABLET PO SCH (09:10)
[2020-05-06] MEDS: THIAMINE 100 MG TABLET PO SCH (09:10)
[2020-05-06] MEDS: NICOTINE 21 MG/24 HOUR PATCH TD PRN (09:11)
[2020-05-06] MEDS: MAG HYDROX/AL HYDROX/SIMETH ES 30 ML SUSPENSION UDCUP PO PRN (11:10)
[2020-05-06] MEDS: CYCLOBENZAPRINE HCL 10 MG TABLET PO PRN (12:30)
[2020-05-06 16:03] VITALS: BP 144/95
[2020-05-06] MEDS: QUEtiapine FUMARATE 200 MG TABLET PO SCH (20:26)
[2020-05-06] MEDS: ZOLPIDEM TARTRATE 10 MG TABLET PO PRN (20:26)
[2020-05-07 05:28] VITALS: BP 129/88
[2020-05-07] MEDS: THIAMINE 100 MG TABLET PO SCH (08:03)
[2020-05-07] MEDS: FOLIC ACID 1 MG TABLET PO SCH (08:03)
[2020-05-07] MEDS: HALOPERIDOL 5 MG TABLET PO PRN ×2 (08:03→13:21)
[2020-05-07] MEDS: LORazepam 2 MG TABLET PO PRN ×3 (08:03→19:15)
[2020-05-07] MEDS: MULTIVITAMINS WITH MINERALS, THERAPEUTIC TABLET PO SCH (08:03)
[2020-05-07] MEDS: GABAPENTIN 400 MG CAPSULE PO SCH ×3 (08:03→16:16)
[2020-05-07 08:24] VITALS: BP 109/77
[2020-05-07] MEDS: NICOTINE 21 MG/24 HOUR PATCH TD PRN (08:29)
[2020-05-07] MEDS: MAG HYDROX/AL HYDROX/SIMETH ES 30 ML SUSPENSION UDCUP PO PRN (09:50)
[2020-05-07 16:04] VITALS: BP 130/90
[2020-05-07] MEDS: ZOLPIDEM TARTRATE 10 MG TABLET PO PRN (20:28)
[2020-05-07] MEDS: QUEtiapine FUMARATE 200 MG TABLET PO SCH (20:28)
[2020-05-08 04:04] VITALS: BP 127/85
[2020-05-08] MEDS: LORazepam 2 MG TABLET PO PRN ×3 (06:03→16:17)
[2020-05-08] MEDS: FOLIC ACID 1 MG TABLET PO SCH (08:29)
[2020-05-08] MEDS: MULTIVITAMINS WITH MINERALS, THERAPEUTIC TABLET PO SCH (08:29)
[2020-05-08] MEDS: GABAPENTIN 400 MG CAPSULE PO SCH ×3 (08:29→16:16)
[2020-05-08] MEDS: THIAMINE 100 MG TABLET PO SCH (08:29)
[2020-05-08] MEDS: HALOPERIDOL 5 MG TABLET PO PRN ×2 (08:29→14:04)
[2020-05-08] MEDS: NICOTINE 21 MG/24 HOUR PATCH TD PRN (08:30)
[2020-05-08 16:08] VITALS: BP 142/88
[2020-05-08] MEDS: CYCLOBENZAPRINE HCL 10 MG TABLET PO PRN (16:16)
[2020-05-08] MEDS: QUEtiapine FUMARATE 200 MG TABLET PO SCH (20:40)
[2020-05-08] MEDS: ZOLPIDEM TARTRATE 10 MG TABLET PO PRN (20:40)
[2020-05-09] MEDS: LORazepam 2 MG TABLET PO PRN ×3 (00:15→16:11)
[2020-05-09 00:40] VITALS: BP 109/72
[2020-05-09 08:24] VITALS: BP 129/99
[2020-05-09] MEDS: MULTIVITAMINS WITH MINERALS, THERAPEUTIC TABLET PO SCH (08:42)
[2020-05-09] MEDS: THIAMINE 100 MG TABLET PO SCH (08:42)
[2020-05-09] MEDS: FOLIC ACID 1 MG TABLET PO SCH (08:42)
[2020-05-09] MEDS: GABAPENTIN 400 MG CAPSULE PO SCH ×3 (08:42→16:11)
[2020-05-09] MEDS: CYCLOBENZAPRINE HCL 10 MG TABLET PO PRN (08:46)
[2020-05-09] MEDS: HALOPERIDOL 5 MG TABLET PO PRN ×2 (08:46→16:11)
[2020-05-09] MEDS: NICOTINE 21 MG/24 HOUR PATCH TD PRN (08:47)
[2020-05-09 11:33] VITALS: BP 132/95
[2020-05-09] MEDS: ACETAMINOPHEN 325 MG TABLET PO PRN (11:37)
[2020-05-09 16:14] VITALS: BP 130/87
[2020-05-09] MEDS: ZOLPIDEM TARTRATE 10 MG TABLET PO PRN (20:09)
[2020-05-09] MEDS: QUEtiapine FUMARATE 200 MG TABLET PO SCH (20:09)
[2020-05-10 05:44] VITALS: BP 128/85
[2020-05-10] MEDS: LORazepam 2 MG TABLET PO PRN ×4 (06:12→21:08)
[2020-05-10 08:30] VITALS: BP 130/73
[2020-05-10] MEDS: FOLIC ACID 1 MG TABLET PO SCH (08:34)
[2020-05-10] MEDS: MULTIVITAMINS WITH MINERALS, THERAPEUTIC TABLET PO SCH (08:34)
[2020-05-10] MEDS: THIAMINE 100 MG TABLET PO SCH (08:34)
[2020-05-10] MEDS: GABAPENTIN 400 MG CAPSULE PO SCH ×3 (08:34→16:54)
[2020-05-10] MEDS: NICOTINE 21 MG/24 HOUR PATCH TD PRN (09:04)
[2020-05-10] MEDS: HALOPERIDOL 5 MG TABLET PO PRN ×3 (10:43→21:08)
[2020-05-10] MEDS: CYCLOBENZAPRINE HCL 10 MG TABLET PO PRN (10:43)
[2020-05-10 16:15] VITALS: BP 133/97
[2020-05-10] MEDS: QUEtiapine FUMARATE 200 MG TABLET PO SCH (21:08)
[2020-05-11 04:18] VITALS: BP 127/78
[2020-05-11] MEDS: LORazepam 2 MG TABLET PO PRN ×4 (05:00→20:26)
[2020-05-11] MEDS: HALOPERIDOL 5 MG TABLET PO PRN ×3 (05:00→16:08)
[2020-05-11 08:38] VITALS: BP 117/78
[2020-05-11] MEDS: THIAMINE 100 MG TABLET PO SCH (09:11)
[2020-05-11] MEDS: FOLIC ACID 1 MG TABLET PO SCH (09:11)
[2020-05-11] MEDS: MULTIVITAMINS WITH MINERALS, THERAPEUTIC TABLET PO SCH (09:11)
[2020-05-11] MEDS: GABAPENTIN 400 MG CAPSULE PO SCH ×3 (09:11→16:08)
[2020-05-11] MEDS: NICOTINE 21 MG/24 HOUR PATCH TD PRN (10:18)
[2020-05-11 13:17] VITALS: BP 124/72
[2020-05-11] MEDS: CYCLOBENZAPRINE HCL 10 MG TABLET PO PRN (13:17)
[2020-05-11 16:06] VITALS: BP 110/61
[2020-05-11] MEDS: QUEtiapine FUMARATE 200 MG TABLET PO SCH (20:26)
[2020-05-11] MEDS: ZOLPIDEM TARTRATE 10 MG TABLET PO PRN (21:26)
[2020-05-12 05:13] VITALS: BP 140/97
[2020-05-12] MEDS: LORazepam 2 MG TABLET PO PRN ×4 (05:29→23:57)
[2020-05-12] MEDS: HALOPERIDOL 5 MG TABLET PO PRN ×4 (05:29→23:57)
[2020-05-12 08:04] VITALS: BP 114/74
[2020-05-12] MEDS: FOLIC ACID 1 MG TABLET PO SCH (08:19)
[2020-05-12] MEDS: THIAMINE 100 MG TABLET PO SCH (08:19)
[2020-05-12] MEDS: GABAPENTIN 400 MG CAPSULE PO SCH ×3 (08:19→16:31)
[2020-05-12] MEDS: MULTIVITAMINS WITH MINERALS, THERAPEUTIC TABLET PO SCH (08:20)
[2020-05-12] MEDS: NICOTINE 21 MG/24 HOUR PATCH TD PRN (08:20)
[2020-05-12 16:00] VITALS: BP 134/92
[2020-05-12] MEDS: QUEtiapine FUMARATE 200 MG TABLET PO SCH (20:38)
[2020-05-12] MEDS: ZOLPIDEM TARTRATE 10 MG TABLET PO PRN (20:38)
[2020-05-13 00:05] VITALS: BP 125/88
[2020-05-13] MEDS: LORazepam 2 MG TABLET PO PRN ×3 (06:28→16:30)
[2020-05-13] MEDS: HALOPERIDOL 5 MG TABLET PO PRN ×2 (06:28→12:30)
[2020-05-13 08:04] VITALS: BP 136/80
[2020-05-13] MEDS: NICOTINE 21 MG/24 HOUR PATCH TD PRN (08:21)
[2020-05-13] MEDS: THIAMINE 100 MG TABLET PO SCH (08:21)
[2020-05-13] MEDS: GABAPENTIN 400 MG CAPSULE PO SCH ×3 (08:21→16:30)
[2020-05-13] MEDS: MULTIVITAMINS WITH MINERALS, THERAPEUTIC TABLET PO SCH (08:21)
[2020-05-13] MEDS: FOLIC ACID 1 MG TABLET PO SCH (08:21)
[2020-05-13] MEDS: CYCLOBENZAPRINE HCL 10 MG TABLET PO PRN (16:31)
[2020-05-13] MEDS: ZOLPIDEM TARTRATE 10 MG TABLET PO PRN (20:34)
[2020-05-13] MEDS: QUEtiapine FUMARATE 200 MG TABLET PO SCH (20:34)
[2020-05-14] MEDS: LORazepam 2 MG TABLET PO PRN ×3 (05:06→16:25)
[2020-05-14] MEDS: HALOPERIDOL 5 MG TABLET PO PRN ×3 (05:07→16:25)
[2020-05-14 05:40] VITALS: BP 126/91
[2020-05-14 08:08] VITALS: BP 119/83
[2020-05-14] MEDS: MULTIVITAMINS WITH MINERALS, THERAPEUTIC TABLET PO SCH (08:59)
[2020-05-14] MEDS: FOLIC ACID 1 MG TABLET PO SCH (08:59)
[2020-05-14] MEDS: GABAPENTIN 400 MG CAPSULE PO SCH ×3 (08:59→16:25)
[2020-05-14] MEDS: THIAMINE 100 MG TABLET PO SCH (08:59)
[2020-05-14] MEDS: NICOTINE 21 MG/24 HOUR PATCH TD PRN (09:17)
[2020-05-14] MEDS: CYCLOBENZAPRINE HCL 10 MG TABLET PO PRN (12:49)
[2020-05-14 16:06] VITALS: BP 148/98
[2020-05-14] MEDS: ZOLPIDEM TARTRATE 10 MG TABLET PO PRN (20:39)
[2020-05-14] MEDS: QUEtiapine FUMARATE 200 MG TABLET PO SCH (20:39)
[2020-05-14 21:29] VITALS: BP 101/70
[2020-05-15] MEDS: HALOPERIDOL 5 MG TABLET PO PRN ×3 (00:07→14:34)
[2020-05-15] MEDS: LORazepam 2 MG TABLET PO PRN ×3 (00:07→14:34)
[2020-05-15 00:15] VITALS: BP 107/80
[2020-05-15] MEDS: GABAPENTIN 400 MG CAPSULE PO SCH ×3 (08:43→16:34)
[2020-05-15] MEDS: THIAMINE 100 MG TABLET PO SCH (08:43)
[2020-05-15] MEDS: MULTIVITAMINS WITH MINERALS, THERAPEUTIC TABLET PO SCH (08:43)
[2020-05-15] MEDS: FOLIC ACID 1 MG TABLET PO SCH (08:43)
[2020-05-15 08:56] VITALS: BP 141/93
[2020-05-15] MEDS: NICOTINE 21 MG/24 HOUR PATCH TD PRN (08:58)
[2020-05-15] MEDS: MAGNESIUM HYDROXIDE SUSPENSION 30 ML UDCUP PO PRN (10:18)
[2020-05-15 16:37] VITALS: BP 132/99
[2020-05-15] MEDS: QUEtiapine FUMARATE 200 MG TABLET PO SCH (20:42)
[2020-05-16 02:58] VITALS: BP 122/84
[2020-05-16] MEDS: HALOPERIDOL 5 MG TABLET PO PRN ×2 (04:49→10:00)
[2020-05-16] MEDS: LORazepam 2 MG TABLET PO PRN ×4 (04:49→17:08)
[2020-05-16] MEDS: MULTIVITAMINS WITH MINERALS, THERAPEUTIC TABLET PO SCH (08:19)
[2020-05-16] MEDS: GABAPENTIN 400 MG CAPSULE PO SCH ×3 (08:19→16:40)
[2020-05-16] MEDS: FOLIC ACID 1 MG TABLET PO SCH (08:19)
[2020-05-16] MEDS: THIAMINE 100 MG TABLET PO SCH (08:19)
[2020-05-16] MEDS: NICOTINE 21 MG/24 HOUR PATCH TD PRN (08:20)
[2020-05-16 16:20] VITALS: BP 149/97
[2020-05-16] MEDS: ZOLPIDEM TARTRATE 10 MG TABLET PO PRN (20:42)
[2020-05-16] MEDS: QUEtiapine FUMARATE 200 MG TABLET PO SCH (20:42)
[2020-05-17 01:30] VITALS: BP 101/61
[2020-05-17] MEDS: HALOPERIDOL 5 MG TABLET PO PRN ×2 (06:00→16:43)
[2020-05-17] MEDS: LORazepam 2 MG TABLET PO PRN ×3 (06:00→16:43)
[2020-05-17] MEDS: NICOTINE 21 MG/24 HOUR PATCH TD PRN (09:03)
[2020-05-17] MEDS: CYCLOBENZAPRINE HCL 10 MG TABLET PO PRN (09:03)
[2020-05-17] MEDS: THIAMINE 100 MG TABLET PO SCH (09:04)
[2020-05-17] MEDS: GABAPENTIN 400 MG CAPSULE PO SCH ×3 (09:04→16:43)
[2020-05-17] MEDS: FOLIC ACID 1 MG TABLET PO SCH (09:04)
[2020-05-17] MEDS: MULTIVITAMINS WITH MINERALS, THERAPEUTIC TABLET PO SCH (09:04)
[2020-05-17 16:30] VITALS: BP 116/88
[2020-05-17] MEDS: ZOLPIDEM TARTRATE 10 MG TABLET PO PRN (20:25)
[2020-05-17] MEDS: QUEtiapine FUMARATE 200 MG TABLET PO SCH (20:25)
[2020-05-18] MEDS: HALOPERIDOL 5 MG TABLET PO PRN ×4 (05:04→17:30)
[2020-05-18] MEDS: LORazepam 2 MG TABLET PO PRN ×4 (05:04→17:30)
[2020-05-18 06:33] VITALS: BP 110/68
[2020-05-18 08:00] VITALS: BP 115/76
[2020-05-18] MEDS: GABAPENTIN 400 MG CAPSULE PO SCH ×3 (09:17→17:07)
[2020-05-18] MEDS: THIAMINE 100 MG TABLET PO SCH (09:17)
[2020-05-18] MEDS: MULTIVITAMINS WITH MINERALS, THERAPEUTIC TABLET PO SCH (09:17)
[2020-05-18] MEDS: NICOTINE 21 MG/24 HOUR PATCH TD PRN (09:18)
[2020-05-18] MEDS: FOLIC ACID 1 MG TABLET PO SCH (09:18)
[2020-05-18 16:44] VITALS: BP 136/96
[2020-05-18] MEDS: ZOLPIDEM TARTRATE 10 MG TABLET PO PRN (20:43)
[2020-05-18] MEDS: QUEtiapine FUMARATE 200 MG TABLET PO SCH (20:43)
[2020-05-18] MEDS: CYCLOBENZAPRINE HCL 10 MG TABLET PO PRN (20:43)
[2020-05-19] MEDS: HALOPERIDOL 5 MG TABLET PO PRN ×2 (05:51→17:02)
[2020-05-19] MEDS: LORazepam 2 MG TABLET PO PRN ×3 (05:51→17:02)
[2020-05-19] MEDS: FOLIC ACID 1 MG TABLET PO SCH (09:12)
[2020-05-19] MEDS: MULTIVITAMINS WITH MINERALS, THERAPEUTIC TABLET PO SCH (09:13)
[2020-05-19] MEDS: GABAPENTIN 400 MG CAPSULE PO SCH ×3 (09:13→17:01)
[2020-05-19] MEDS: THIAMINE 100 MG TABLET PO SCH (09:28)
[2020-05-19] MEDS: NICOTINE 21 MG/24 HOUR PATCH TD PRN (09:33)
[2020-05-19 13:36] VITALS: BP 125/90
[2020-05-19 16:28] VITALS: BP 129/90
[2020-05-19] MEDS: CYCLOBENZAPRINE HCL 10 MG TABLET PO PRN (17:14)
[2020-05-19] MEDS: ZOLPIDEM TARTRATE 10 MG TABLET PO PRN (21:09)
[2020-05-19] MEDS: QUEtiapine FUMARATE 200 MG TABLET PO SCH (21:09)
[2020-05-20 00:53] VITALS: BP 112/82
[2020-05-20] MEDS: LORazepam 2 MG TABLET PO PRN ×4 (00:57→17:29)
[2020-05-20] MEDS: HALOPERIDOL 5 MG TABLET PO PRN ×2 (00:57→06:25)
[2020-05-20] MEDS: FOLIC ACID 1 MG TABLET PO SCH (09:27)
[2020-05-20] MEDS: MULTIVITAMINS WITH MINERALS, THERAPEUTIC TABLET PO SCH (09:27)
[2020-05-20] MEDS: THIAMINE 100 MG TABLET PO SCH (09:28)
[2020-05-20] MEDS: GABAPENTIN 400 MG CAPSULE PO SCH ×3 (09:28→17:29)
[2020-05-20] MEDS: NICOTINE 21 MG/24 HOUR PATCH TD PRN (10:55)
[2020-05-20 16:39] VITALS: BP_SYST 133; BP_SYST 148; BP_DIAS 94; BP_DIAS 97
[2020-05-20] MEDS: QUEtiapine FUMARATE 200 MG TABLET PO SCH (20:46)
[2020-05-20] MEDS: ZOLPIDEM TARTRATE 10 MG TABLET PO PRN (20:52)
[2020-05-21 00:35] VITALS: BP 101/69
[2020-05-21] MEDS: LORazepam 2 MG TABLET PO PRN ×4 (00:38→16:57)
[2020-05-21 06:58] VITALS: BP 123/89
[2020-05-21] MEDS: HALOPERIDOL 5 MG TABLET PO PRN ×2 (07:00→16:58)
[2020-05-21] MEDS: MULTIVITAMINS WITH MINERALS, THERAPEUTIC TABLET PO SCH (08:58)
[2020-05-21] MEDS: FOLIC ACID 1 MG TABLET PO SCH (08:58)
[2020-05-21] MEDS: THIAMINE 100 MG TABLET PO SCH (08:58)
[2020-05-21] MEDS: GABAPENTIN 400 MG CAPSULE PO SCH ×3 (08:59→16:57)
[2020-05-21] MEDS: NICOTINE 21 MG/24 HOUR PATCH TD PRN (09:08)
[2020-05-21 16:22] VITALS: BP 130/90
[2020-05-21] MEDS: CYCLOBENZAPRINE HCL 10 MG TABLET PO PRN (18:57)
[2020-05-21] MEDS: QUEtiapine FUMARATE 200 MG TABLET PO SCH (20:24)
[2020-05-22] MEDS: LORazepam 2 MG TABLET PO PRN ×5 (00:02→23:58)
[2020-05-22 05:28] VITALS: BP 106/75
[2020-05-22] MEDS: NICOTINE 21 MG/24 HOUR PATCH TD PRN (08:04)
[2020-05-22] MEDS: GABAPENTIN 400 MG CAPSULE PO SCH ×3 (08:05→16:40)
[2020-05-22] MEDS: FOLIC ACID 1 MG TABLET PO SCH (08:05)
[2020-05-22] MEDS: MULTIVITAMINS WITH MINERALS, THERAPEUTIC TABLET PO SCH (08:05)
[2020-05-22] MEDS: HALOPERIDOL 5 MG TABLET PO PRN ×4 (08:05→23:57)
[2020-05-22] MEDS: THIAMINE 100 MG TABLET PO SCH (08:05)
[2020-05-22 19:09] VITALS: BP 109/73
[2020-05-22] MEDS: QUEtiapine FUMARATE 200 MG TABLET PO SCH (20:28)
[2020-05-22] MEDS: ZOLPIDEM TARTRATE 10 MG TABLET PO PRN (20:28)
[2020-05-23 00:07] VITALS: BP 103/71
[2020-05-23] MEDS: HALOPERIDOL 5 MG TABLET PO PRN (06:39)
[2020-05-23] MEDS: LORazepam 2 MG TABLET PO PRN ×4 (06:40→20:29)
[2020-05-23 08:29] VITALS: BP 133/88
[2020-05-23] MEDS: GABAPENTIN 400 MG CAPSULE PO SCH ×3 (08:52→16:19)
[2020-05-23] MEDS: MULTIVITAMINS WITH MINERALS, THERAPEUTIC TABLET PO SCH (08:52)
[2020-05-23] MEDS: FOLIC ACID 1 MG TABLET PO SCH (08:52)
[2020-05-23] MEDS: THIAMINE 100 MG TABLET PO SCH (08:52)
[2020-05-23] MEDS: NICOTINE 21 MG/24 HOUR PATCH TD PRN (09:51)
[2020-05-23] MEDS: CYCLOBENZAPRINE HCL 10 MG TABLET PO PRN (14:48)
[2020-05-23] MEDS: ZOLPIDEM TARTRATE 10 MG TABLET PO PRN (20:29)
[2020-05-23] MEDS: QUEtiapine FUMARATE 200 MG TABLET PO SCH (20:29)
[2020-05-24] MEDS: LORazepam 2 MG TABLET PO PRN ×3 (05:55→17:29)
[2020-05-24] MEDS: HALOPERIDOL 5 MG TABLET PO PRN ×2 (05:55→12:23)
[2020-05-24 06:27] VITALS: BP 119/80
[2020-05-24 08:30] VITALS: BP 112/68
[2020-05-24] MEDS: MULTIVITAMINS WITH MINERALS, THERAPEUTIC TABLET PO SCH (08:36)
[2020-05-24] MEDS: THIAMINE 100 MG TABLET PO SCH (08:36)
[2020-05-24] MEDS: FOLIC ACID 1 MG TABLET PO SCH (08:36)
[2020-05-24] MEDS: GABAPENTIN 400 MG CAPSULE PO SCH ×3 (08:36→16:16)
[2020-05-24] MEDS: NICOTINE 21 MG/24 HOUR PATCH TD PRN (08:37)
[2020-05-24] MEDS: CYCLOBENZAPRINE HCL 10 MG TABLET PO PRN (08:42)
[2020-05-24 09:12] LABS: COVID AG,FIA SOURCE NASAL SWAB
[2020-05-24 16:06] VITALS: BP 135/91
[2020-05-24] MEDS: ZOLPIDEM TARTRATE 10 MG TABLET PO PRN (20:39)
[2020-05-24] MEDS: QUEtiapine FUMARATE 200 MG TABLET PO SCH (20:39)
[2020-05-25 05:20] VITALS: BP 118/78
[2020-05-25] MEDS: HALOPERIDOL 5 MG TABLET PO PRN ×2 (06:40→14:51)
[2020-05-25] MEDS: LORazepam 2 MG TABLET PO PRN ×3 (06:40→16:04)
[2020-05-25 08:18] VITALS: BP 113/74
[2020-05-25] MEDS: MULTIVITAMINS WITH MINERALS, THERAPEUTIC TABLET PO SCH (09:03)
[2020-05-25] MEDS: FOLIC ACID 1 MG TABLET PO SCH (09:03)
[2020-05-25] MEDS: GABAPENTIN 400 MG CAPSULE PO SCH ×3 (09:03→16:04)
[2020-05-25] MEDS: THIAMINE 100 MG TABLET PO SCH (09:03)
[2020-05-25] MEDS: NICOTINE 21 MG/24 HOUR PATCH TD PRN (09:04)
[2020-05-25] MEDS: CYCLOBENZAPRINE HCL 10 MG TABLET PO PRN (11:16)
[2020-05-25 16:20] VITALS: BP 133/97
[2020-05-25] MEDS: QUEtiapine FUMARATE 200 MG TABLET PO SCH (20:24)
[2020-05-25] MEDS: ZOLPIDEM TARTRATE 10 MG TABLET PO PRN (20:24)
[2020-05-26 00:17] VITALS: BP 95/74
[2020-05-26 05:07] VITALS: BP 115/87
[2020-05-26] MEDS: LORazepam 2 MG TABLET PO PRN ×4 (05:17→20:28)
[2020-05-26] MEDS: HALOPERIDOL 5 MG TABLET PO PRN ×3 (05:17→16:12)
[2020-05-26 08:23] VITALS: BP 124/87
[2020-05-26] MEDS: THIAMINE 100 MG TABLET PO SCH (09:05)
[2020-05-26] MEDS: MULTIVITAMINS WITH MINERALS, THERAPEUTIC TABLET PO SCH (09:05)
[2020-05-26] MEDS: FOLIC ACID 1 MG TABLET PO SCH (09:05)
[2020-05-26] MEDS: GABAPENTIN 400 MG CAPSULE PO SCH ×3 (09:05→16:12)
[2020-05-26] MEDS: NICOTINE 21 MG/24 HOUR PATCH TD PRN (10:19)
[2020-05-26 16:11] VITALS: BP 125/85
[2020-05-26] MEDS: ZOLPIDEM TARTRATE 10 MG TABLET PO PRN (20:28)
[2020-05-26] MEDS: QUEtiapine FUMARATE 200 MG TABLET PO SCH (20:28)
[2020-05-27 04:14] VITALS: BP 116/76
[2020-05-27] MEDS: LORazepam 2 MG TABLET PO PRN ×3 (06:39→16:24)
[2020-05-27] MEDS: HALOPERIDOL 5 MG TABLET PO PRN ×3 (06:40→16:24)
[2020-05-27] MEDS: FOLIC ACID 1 MG TABLET PO SCH (08:29)
[2020-05-27] MEDS: GABAPENTIN 400 MG CAPSULE PO SCH ×3 (08:29→16:24)
[2020-05-27] MEDS: MULTIVITAMINS WITH MINERALS, THERAPEUTIC TABLET PO SCH (08:29)
[2020-05-27] MEDS: THIAMINE 100 MG TABLET PO SCH (08:29)
[2020-05-27] MEDS: NICOTINE 21 MG/24 HOUR PATCH TD PRN (08:33)
[2020-05-27 12:16] VITALS: BP 131/92
[2020-05-27] MEDS: CYCLOBENZAPRINE HCL 10 MG TABLET PO PRN (12:16)
[2020-05-27] MEDS: MAG HYDROX/AL HYDROX/SIMETH ES 30 ML SUSPENSION UDCUP PO PRN (14:51)
[2020-05-27 17:04] VITALS: BP 138/90
[2020-05-27] MEDS: QUEtiapine FUMARATE 200 MG TABLET PO SCH (20:24)
[2020-05-27] MEDS: ZOLPIDEM TARTRATE 10 MG TABLET PO PRN (20:24)
[2020-05-28 03:22] VITALS: BP 111/80
[2020-05-28] MEDS: LORazepam 2 MG TABLET PO PRN ×4 (03:27→16:39)
[2020-05-28] MEDS: HALOPERIDOL 5 MG TABLET PO PRN ×4 (03:27→16:39)
[2020-05-28] MEDS: THIAMINE 100 MG TABLET PO SCH (08:11)
[2020-05-28] MEDS: MULTIVITAMINS WITH MINERALS, THERAPEUTIC TABLET PO SCH (08:11)
[2020-05-28] MEDS: FOLIC ACID 1 MG TABLET PO SCH (08:11)
[2020-05-28] MEDS: GABAPENTIN 400 MG CAPSULE PO SCH ×3 (08:11→16:39)
[2020-05-28] MEDS: NICOTINE 21 MG/24 HOUR PATCH TD PRN (08:11)
[2020-05-28] MEDS: CYCLOBENZAPRINE HCL 10 MG TABLET PO PRN (12:25)
[2020-05-28 16:14] VITALS: BP 121/89
[2020-05-28] MEDS: ZOLPIDEM TARTRATE 10 MG TABLET PO PRN (20:23)
[2020-05-28] MEDS: QUEtiapine FUMARATE 200 MG TABLET PO SCH (20:23)
[2020-05-29] MEDS: LORazepam 2 MG TABLET PO PRN ×4 (06:14→20:27)
[2020-05-29] MEDS: THIAMINE 100 MG TABLET PO SCH (09:11)
[2020-05-29] MEDS: GABAPENTIN 400 MG CAPSULE PO SCH ×3 (09:11→16:29)
[2020-05-29] MEDS: FOLIC ACID 1 MG TABLET PO SCH (09:11)
[2020-05-29] MEDS: MULTIVITAMINS WITH MINERALS, THERAPEUTIC TABLET PO SCH (09:11)
[2020-05-29] MEDS: NICOTINE 21 MG/24 HOUR PATCH TD PRN (10:25)
[2020-05-29] MEDS: CYCLOBENZAPRINE HCL 10 MG TABLET PO PRN (10:32)
[2020-05-29] MEDS: HALOPERIDOL 5 MG TABLET PO PRN ×3 (10:32→23:36)
[2020-05-29 16:04] VITALS: BP 144/99
[2020-05-29] MEDS: ZOLPIDEM TARTRATE 10 MG TABLET PO PRN (20:04)
[2020-05-29] MEDS: QUEtiapine FUMARATE 200 MG TABLET PO SCH (20:04)
[2020-05-30] MEDS: HALOPERIDOL 5 MG TABLET PO PRN ×3 (06:03→16:28)
[2020-05-30] MEDS: LORazepam 2 MG TABLET PO PRN ×4 (06:03→20:27)
[2020-05-30 06:22] VITALS: BP 121/85
[2020-05-30] MEDS: MULTIVITAMINS WITH MINERALS, THERAPEUTIC TABLET PO SCH (08:12)
[2020-05-30] MEDS: GABAPENTIN 400 MG CAPSULE PO SCH ×3 (08:12→16:26)
[2020-05-30] MEDS: NICOTINE 21 MG/24 HOUR PATCH TD PRN (08:13)
[2020-05-30] MEDS: FOLIC ACID 1 MG TABLET PO SCH (08:13)
[2020-05-30] MEDS: THIAMINE 100 MG TABLET PO SCH (08:13)
[2020-05-30 08:29] VITALS: BP 120/83
[2020-05-30 16:20] VITALS: BP 132/96
[2020-05-30] MEDS: QUEtiapine FUMARATE 200 MG TABLET PO SCH (20:26)
[2020-05-30] MEDS: ZOLPIDEM TARTRATE 10 MG TABLET PO PRN (20:26)
[2020-05-31] MEDS: HALOPERIDOL 5 MG TABLET PO PRN ×4 (01:07→19:05)
[2020-05-31 05:43] VITALS: BP 121/83
[2020-05-31] MEDS: LORazepam 2 MG TABLET PO PRN ×3 (05:46→17:07)
[2020-05-31] MEDS: THIAMINE 100 MG TABLET PO SCH (08:20)
[2020-05-31] MEDS: FOLIC ACID 1 MG TABLET PO SCH (08:20)
[2020-05-31] MEDS: MULTIVITAMINS WITH MINERALS, THERAPEUTIC TABLET PO SCH (08:20)
[2020-05-31] MEDS: GABAPENTIN 400 MG CAPSULE PO SCH ×3 (08:20→17:07)
[2020-05-31] MEDS: NICOTINE 21 MG/24 HOUR PATCH TD PRN (08:23)
[2020-05-31] MEDS: CYCLOBENZAPRINE HCL 10 MG TABLET PO PRN (13:06)
[2020-05-31 16:27] VITALS: BP 89/129
[2020-05-31] MEDS: ZOLPIDEM TARTRATE 10 MG TABLET PO PRN (20:20)
[2020-05-31] MEDS: QUEtiapine FUMARATE 200 MG TABLET PO SCH (20:20)
[2020-06-01] MEDS: LORazepam 2 MG TABLET PO PRN ×4 (05:00→17:31)
[2020-06-01] MEDS: HALOPERIDOL 5 MG TABLET PO PRN ×4 (05:00→17:31)
[2020-06-01 05:59] VITALS: BP 124/88
[2020-06-01] MEDS: FOLIC ACID 1 MG TABLET PO SCH (09:12)
[2020-06-01] MEDS: GABAPENTIN 400 MG CAPSULE PO SCH ×3 (09:12→16:29)
[2020-06-01] MEDS: MULTIVITAMINS WITH MINERALS, THERAPEUTIC TABLET PO SCH (09:13)
[2020-06-01] MEDS: NICOTINE 21 MG/24 HOUR PATCH TD PRN (09:14)
[2020-06-01] MEDS: THIAMINE 100 MG TABLET PO SCH (09:25)
[2020-06-01 16:09] VITALS: BP 135/96
[2020-06-01] MEDS: QUEtiapine FUMARATE 200 MG TABLET PO SCH (20:31)
[2020-06-01] MEDS: ZOLPIDEM TARTRATE 10 MG TABLET PO PRN (20:33)
[2020-06-02] MEDS: HALOPERIDOL 5 MG TABLET PO PRN (02:01)
[2020-06-02 04:59] VITALS: BP 117/86
[2020-06-02] MEDS: LORazepam 2 MG TABLET PO PRN ×4 (05:24→21:12)
[2020-06-02] MEDS: MULTIVITAMINS WITH MINERALS, THERAPEUTIC TABLET PO SCH (09:32)
[2020-06-02] MEDS: THIAMINE 100 MG TABLET PO SCH (09:33)
[2020-06-02] MEDS: GABAPENTIN 400 MG CAPSULE PO SCH ×3 (09:33→17:10)
[2020-06-02] MEDS: NICOTINE 21 MG/24 HOUR PATCH TD PRN (09:34)
[2020-06-02] MEDS: FOLIC ACID 1 MG TABLET PO SCH (09:34)
[2020-06-02 12:11] VITALS: BP 124/95
[2020-06-02 16:28] VITALS: BP 116/78
[2020-06-02] MEDS: QUEtiapine FUMARATE 200 MG TABLET PO SCH (20:50)
[2020-06-02] MEDS: ZOLPIDEM TARTRATE 10 MG TABLET PO PRN (20:50)
[2020-06-03 05:25] VITALS: BP 138/87
[2020-06-03] MEDS: HALOPERIDOL 5 MG TABLET PO PRN ×2 (05:45→15:13)
[2020-06-03] MEDS: LORazepam 2 MG TABLET PO PRN ×4 (05:45→23:29)
[2020-06-03] MEDS: FOLIC ACID 1 MG TABLET PO SCH (09:47)
[2020-06-03] MEDS: MULTIVITAMINS WITH MINERALS, THERAPEUTIC TABLET PO SCH (09:47)
[2020-06-03] MEDS: THIAMINE 100 MG TABLET PO SCH (09:47)
[2020-06-03] MEDS: GABAPENTIN 400 MG CAPSULE PO SCH ×3 (09:48→16:36)
[2020-06-03] MEDS: NICOTINE 21 MG/24 HOUR PATCH TD PRN ×2 (09:48→10:07)
[2020-06-03] MEDS: CYCLOBENZAPRINE HCL 10 MG TABLET PO PRN (11:52)
[2020-06-03 12:28] VITALS: BP 117/95
[2020-06-03 17:01] VITALS: BP 144/93
[2020-06-03] MEDS: QUEtiapine FUMARATE 200 MG TABLET PO SCH (20:08)
[2020-06-03] MEDS: ZOLPIDEM TARTRATE 10 MG TABLET PO PRN (20:08)
[2020-06-04 00:05] VITALS: BP 102/73
[2020-06-04] MEDS: LORazepam 2 MG TABLET PO PRN ×2 (06:32→11:11)
[2020-06-04 08:14] VITALS: BP 106/69
[2020-06-04] MEDS: HALOPERIDOL 5 MG TABLET PO PRN (08:42)
[2020-06-04] MEDS: FOLIC ACID 1 MG TABLET PO SCH (08:42)
[2020-06-04] MEDS: MULTIVITAMINS WITH MINERALS, THERAPEUTIC TABLET PO SCH (08:42)
[2020-06-04] MEDS: THIAMINE 100 MG TABLET PO SCH (08:42)
[2020-06-04] MEDS: GABAPENTIN 400 MG CAPSULE PO SCH ×3 (08:42→17:22)
[2020-06-04] MEDS: NICOTINE 21 MG/24 HOUR PATCH TD PRN (08:51)
[2020-06-04 09:52] LABS: COVID AG,FIA SOURCE NASOPHARYNGEAL
[2020-06-04] MEDS: MAG HYDROX/AL HYDROX/SIMETH ES 30 ML SUSPENSION UDCUP PO PRN (10:45)
[2020-06-04 16:07] VITALS: BP 142/90
[2020-06-04] MEDS: ACETAMINOPHEN 325 MG TABLET PO PRN (18:22)
[2020-06-04] MEDS: CYCLOBENZAPRINE HCL 10 MG TABLET PO PRN (18:44)
[2020-06-04] MEDS: QUEtiapine FUMARATE 200 MG TABLET PO SCH (21:47)
[2020-06-04] MEDS: ZOLPIDEM TARTRATE 10 MG TABLET PO PRN (21:48)
[2020-06-05 05:45] VITALS: BP 100/76
[2020-06-05] MEDS: GABAPENTIN 400 MG CAPSULE PO SCH ×3 (08:33→16:14)
[2020-06-05] MEDS: FOLIC ACID 1 MG TABLET PO SCH (08:33)
[2020-06-05] MEDS: HALOPERIDOL 5 MG TABLET PO PRN ×2 (08:33→13:18)
[2020-06-05] MEDS: LORazepam 2 MG TABLET PO PRN ×3 (08:33→17:54)
[2020-06-05] MEDS: THIAMINE 100 MG TABLET PO SCH (08:33)
[2020-06-05] MEDS: MULTIVITAMINS WITH MINERALS, THERAPEUTIC TABLET PO SCH (08:33)
[2020-06-05] MEDS: NICOTINE 21 MG/24 HOUR PATCH TD PRN (08:38)
[2020-06-05 16:32] VITALS: BP 132/94
[2020-06-05] MEDS: QUEtiapine FUMARATE 200 MG TABLET PO SCH (20:29)
[2020-06-06 04:27] VITALS: BP 128/76
[2020-06-06] MEDS: HALOPERIDOL 5 MG TABLET PO PRN ×2 (06:07→08:54)
[2020-06-06] MEDS: LORazepam 2 MG TABLET PO PRN ×5 (06:07→21:07)
[2020-06-06] MEDS: MULTIVITAMINS WITH MINERALS, THERAPEUTIC TABLET PO SCH (08:53)
[2020-06-06] MEDS: GABAPENTIN 400 MG CAPSULE PO SCH ×3 (08:53→16:32)
[2020-06-06] MEDS: THIAMINE 100 MG TABLET PO SCH (08:54)
[2020-06-06] MEDS: FOLIC ACID 1 MG TABLET PO SCH (08:54)
[2020-06-06] MEDS: NICOTINE 21 MG/24 HOUR PATCH TD PRN (09:31)
[2020-06-06 16:12] VITALS: BP 108/76
[2020-06-06] MEDS: QUEtiapine FUMARATE 200 MG TABLET PO SCH (20:41)
[2020-06-06] MEDS: ZOLPIDEM TARTRATE 10 MG TABLET PO PRN (21:07)
[2020-06-07 06:02] VITALS: BP 134/88
[2020-06-07] MEDS: LORazepam 2 MG TABLET PO PRN ×4 (06:11→22:43)
[2020-06-07] MEDS: HALOPERIDOL 5 MG TABLET PO PRN ×4 (06:12→22:43)
[2020-06-07 08:10] VITALS: BP 133/66
[2020-06-07] MEDS: FOLIC ACID 1 MG TABLET PO SCH (09:20)
[2020-06-07] MEDS: MULTIVITAMINS WITH MINERALS, THERAPEUTIC TABLET PO SCH (09:20)
[2020-06-07] MEDS: GABAPENTIN 400 MG CAPSULE PO SCH ×3 (09:21→16:33)
[2020-06-07] MEDS: THIAMINE 100 MG TABLET PO SCH (09:21)
[2020-06-07] MEDS: NICOTINE 21 MG/24 HOUR PATCH TD PRN (09:41)
[2020-06-07] MEDS: CYCLOBENZAPRINE HCL 10 MG TABLET PO PRN (11:15)
[2020-06-07 16:35] VITALS: BP 120/79
[2020-06-07] MEDS: MAG HYDROX/AL HYDROX/SIMETH ES 30 ML SUSPENSION UDCUP PO PRN (16:39)
[2020-06-07] MEDS: ZOLPIDEM TARTRATE 10 MG TABLET PO PRN (20:13)
[2020-06-07] MEDS: QUEtiapine FUMARATE 200 MG TABLET PO SCH (20:13)
[2020-06-08 02:46] VITALS: BP 121/68
[2020-06-08] MEDS: HALOPERIDOL 5 MG TABLET PO PRN ×3 (05:38→20:11)
[2020-06-08] MEDS: LORazepam 2 MG TABLET PO PRN ×3 (05:38→16:32)
[2020-06-08] MEDS: THIAMINE 100 MG TABLET PO SCH (09:21)
[2020-06-08] MEDS: FOLIC ACID 1 MG TABLET PO SCH (09:21)
[2020-06-08] MEDS: MULTIVITAMINS WITH MINERALS, THERAPEUTIC TABLET PO SCH (09:22)
[2020-06-08] MEDS: GABAPENTIN 400 MG CAPSULE PO SCH ×3 (09:22→16:32)
[2020-06-08 09:31] VITALS: BP 120/84
[2020-06-08] MEDS: NICOTINE 21 MG/24 HOUR PATCH TD PRN (12:57)
[2020-06-08] MEDS: CYCLOBENZAPRINE HCL 10 MG TABLET PO PRN (13:56)
[2020-06-08] MEDS: ACETAMINOPHEN 325 MG TABLET PO PRN (13:56)
[2020-06-08] MEDS: MAG HYDROX/AL HYDROX/SIMETH ES 30 ML SUSPENSION UDCUP PO PRN (16:32)
[2020-06-08] MEDS: QUEtiapine FUMARATE 200 MG TABLET PO SCH (20:11)
[2020-06-08] MEDS: ZOLPIDEM TARTRATE 10 MG TABLET PO PRN (20:11)
[2020-06-09] MEDS: LORazepam 2 MG TABLET PO PRN ×3 (00:56→17:30)
[2020-06-09] MEDS: HALOPERIDOL 5 MG TABLET PO PRN ×2 (00:56→13:11)
[2020-06-09 05:31] VITALS: BP 108/80
[2020-06-09 08:15] VITALS: BP 121/87
[2020-06-09] MEDS: MULTIVITAMINS WITH MINERALS, THERAPEUTIC TABLET PO SCH (09:33)
[2020-06-09] MEDS: NICOTINE 21 MG/24 HOUR PATCH TD PRN (09:33)
[2020-06-09] MEDS: THIAMINE 100 MG TABLET PO SCH (09:34)
[2020-06-09] MEDS: ACETAMINOPHEN 325 MG TABLET PO PRN (09:34)
[2020-06-09] MEDS: GABAPENTIN 400 MG CAPSULE PO SCH ×3 (09:34→17:08)
[2020-06-09] MEDS: FOLIC ACID 1 MG TABLET PO SCH (09:35)
[2020-06-09] MEDS: MAG HYDROX/AL HYDROX/SIMETH ES 30 ML SUSPENSION UDCUP PO PRN ×2 (10:42→17:31)
[2020-06-09 16:15] VITALS: BP 132/100
[2020-06-09] MEDS: IBUPROFEN 400 MG TABLET PO PRN (18:43)
[2020-06-09] MEDS: QUEtiapine FUMARATE 200 MG TABLET PO SCH (20:51)
[2020-06-09] MEDS: ZOLPIDEM TARTRATE 10 MG TABLET PO PRN (21:13)
[2020-06-10 04:27] VITALS: BP 126/76
[2020-06-10] MEDS: LORazepam 2 MG TABLET PO PRN ×4 (06:59→23:44)
[2020-06-10] MEDS: HALOPERIDOL 5 MG TABLET PO PRN ×3 (06:59→20:35)
[2020-06-10 07:58] VITALS: BP 129/73
[2020-06-10] MEDS: FOLIC ACID 1 MG TABLET PO SCH (09:15)
[2020-06-10] MEDS: THIAMINE 100 MG TABLET PO SCH (09:15)
[2020-06-10] MEDS: MULTIVITAMINS WITH MINERALS, THERAPEUTIC TABLET PO SCH (09:15)
[2020-06-10] MEDS: GABAPENTIN 400 MG CAPSULE PO SCH ×3 (09:15→16:23)
[2020-06-10] MEDS: NICOTINE 21 MG/24 HOUR PATCH TD PRN (09:22)
[2020-06-10 12:50] VITALS: BP 123/71
[2020-06-10] MEDS: ACETAMINOPHEN 325 MG TABLET PO PRN (13:03)
[2020-06-10 16:05] VITALS: BP 128/88
[2020-06-10] MEDS: CYCLOBENZAPRINE HCL 10 MG TABLET PO PRN (16:24)
[2020-06-10] MEDS: QUEtiapine FUMARATE 200 MG TABLET PO SCH (20:35)
[2020-06-10] MEDS: ZOLPIDEM TARTRATE 10 MG TABLET PO PRN (20:35)
[2020-06-11] VITALS: BP 121/79
[2020-06-11] MEDS: THIAMINE 100 MG TABLET PO SCH (08:21)
[2020-06-11] MEDS: FOLIC ACID 1 MG TABLET PO SCH (08:21)
[2020-06-11] MEDS: MULTIVITAMINS WITH MINERALS, THERAPEUTIC TABLET PO SCH (08:21)
[2020-06-11] MEDS: GABAPENTIN 400 MG CAPSULE PO SCH ×3 (08:21→16:44)
[2020-06-11] MEDS: HALOPERIDOL 5 MG TABLET PO PRN (08:22)
[2020-06-11] MEDS: LORazepam 2 MG TABLET PO PRN ×2 (08:22→15:03)
[2020-06-11] MEDS: NICOTINE 21 MG/24 HOUR PATCH TD PRN (08:30)
[2020-06-11 08:32] VITALS: BP 110/68
[2020-06-11 14:40] VITALS: BP 113/79
[2020-06-11] MEDS: CYCLOBENZAPRINE HCL 10 MG TABLET PO PRN (14:42)
[2020-06-11 16:37] VITALS: BP 126/85
[2020-06-11] MEDS: IBUPROFEN 400 MG TABLET PO PRN (21:07)
[2020-06-11] MEDS: QUEtiapine FUMARATE 200 MG TABLET PO SCH (21:08)
[2020-06-12 00:16] VITALS: BP 105/72
[2020-06-12] MEDS: LORazepam 2 MG TABLET PO PRN ×4 (00:17→22:59)
[2020-06-12 08:12] VITALS: BP 113/75
[2020-06-12] MEDS: FOLIC ACID 1 MG TABLET PO SCH (08:43)
[2020-06-12] MEDS: GABAPENTIN 400 MG CAPSULE PO SCH ×3 (08:43→16:09)
[2020-06-12] MEDS: THIAMINE 100 MG TABLET PO SCH (08:43)
[2020-06-12] MEDS: HALOPERIDOL 5 MG TABLET PO PRN ×3 (08:43→22:59)
[2020-06-12] MEDS: MULTIVITAMINS WITH MINERALS, THERAPEUTIC TABLET PO SCH (08:43)
[2020-06-12] MEDS: NICOTINE 21 MG/24 HOUR PATCH TD PRN (08:44)
[2020-06-12 08:56] LABS: COVID AG,FIA SOURCE NASOPHARYNGEAL
[2020-06-12 16:04] VITALS: BP 137/88
[2020-06-12] MEDS: CYCLOBENZAPRINE HCL 10 MG TABLET PO PRN (16:12)
[2020-06-12] MEDS: IBUPROFEN 400 MG TABLET PO PRN (16:12)
[2020-06-12] MEDS: QUEtiapine FUMARATE 200 MG TABLET PO SCH (20:51)
[2020-06-13 00:31] VITALS: BP 104/75
[2020-06-13] MEDS: HALOPERIDOL 5 MG TABLET PO PRN ×3 (06:08→21:05)
[2020-06-13] MEDS: LORazepam 2 MG TABLET PO PRN ×4 (06:08→21:05)
[2020-06-13 08:33] VITALS: BP 109/68
[2020-06-13] MEDS: GABAPENTIN 400 MG CAPSULE PO SCH ×3 (09:11→16:12)
[2020-06-13] MEDS: MULTIVITAMINS WITH MINERALS, THERAPEUTIC TABLET PO SCH (09:11)
[2020-06-13] MEDS: NICOTINE 21 MG/24 HOUR PATCH TD PRN (09:11)
[2020-06-13] MEDS: THIAMINE 100 MG TABLET PO SCH (09:12)
[2020-06-13] MEDS: FOLIC ACID 1 MG TABLET PO SCH (09:12)
[2020-06-13] MEDS: CYCLOBENZAPRINE HCL 10 MG TABLET PO PRN (12:30)
[2020-06-13 16:27] VITALS: BP 133/97
[2020-06-13] MEDS: QUEtiapine FUMARATE 200 MG TABLET PO SCH (20:57)
[2020-06-14 05:37] VITALS: BP 128/82
[2020-06-14] MEDS: HALOPERIDOL 5 MG TABLET PO PRN ×3 (06:39→16:57)
[2020-06-14] MEDS: LORazepam 2 MG TABLET PO PRN ×3 (06:39→16:56)
[2020-06-14] MEDS: MULTIVITAMINS WITH MINERALS, THERAPEUTIC TABLET PO SCH (08:08)
[2020-06-14] MEDS: GABAPENTIN 400 MG CAPSULE PO SCH ×3 (08:08→16:56)
[2020-06-14] MEDS: THIAMINE 100 MG TABLET PO SCH (08:08)
[2020-06-14] MEDS: FOLIC ACID 1 MG TABLET PO SCH (08:08)
[2020-06-14 10:32] VITALS: BP 126/80
[2020-06-14] MEDS: NICOTINE 21 MG/24 HOUR PATCH TD PRN (12:42)
[2020-06-14] MEDS: CYCLOBENZAPRINE HCL 10 MG TABLET PO PRN (14:50)
[2020-06-14 16:16] VITALS: BP 121/82
[2020-06-14] MEDS: QUEtiapine FUMARATE 200 MG TABLET PO SCH (20:53)
[2020-06-14] MEDS: ZOLPIDEM TARTRATE 10 MG TABLET PO PRN (20:53)
[2020-06-15 06:18] VITALS: BP 114/73
[2020-06-15] MEDS: HALOPERIDOL 5 MG TABLET PO PRN ×2 (06:52→11:07)
[2020-06-15] MEDS: LORazepam 2 MG TABLET PO PRN ×3 (06:52→16:30)
[2020-06-15 09:35] VITALS: BP 109/73
[2020-06-15] MEDS: MULTIVITAMINS WITH MINERALS, THERAPEUTIC TABLET PO SCH (09:42)
[2020-06-15] MEDS: THIAMINE 100 MG TABLET PO SCH (09:42)
[2020-06-15] MEDS: GABAPENTIN 400 MG CAPSULE PO SCH ×3 (09:42→16:30)
[2020-06-15] MEDS: FOLIC ACID 1 MG TABLET PO SCH (09:43)
[2020-06-15] MEDS: NICOTINE 21 MG/24 HOUR PATCH TD PRN (10:45)
[2020-06-15 16:12] VITALS: BP 118/80
[2020-06-15] MEDS: MAG HYDROX/AL HYDROX/SIMETH ES 30 ML SUSPENSION UDCUP PO PRN (16:30)
[2020-06-15] MEDS: QUEtiapine FUMARATE 200 MG TABLET PO SCH (20:58)
[2020-06-16 00:01] VITALS: BP 134/98
[2020-06-16] MEDS: HALOPERIDOL 5 MG TABLET PO PRN ×3 (00:05→13:35)
[2020-06-16] MEDS: ZOLPIDEM TARTRATE 10 MG TABLET PO PRN (00:05)
[2020-06-16] MEDS: LORazepam 2 MG TABLET PO PRN ×4 (00:05→14:26)
[2020-06-16] MEDS: FOLIC ACID 1 MG TABLET PO SCH (08:40)
[2020-06-16] MEDS: GABAPENTIN 400 MG CAPSULE PO SCH ×3 (08:40→17:00)
[2020-06-16] MEDS: THIAMINE 100 MG TABLET PO SCH (08:40)
[2020-06-16] MEDS: MULTIVITAMINS WITH MINERALS, THERAPEUTIC TABLET PO SCH (08:40)
[2020-06-16] MEDS: CYCLOBENZAPRINE HCL 10 MG TABLET PO PRN (09:27)
[2020-06-16] MEDS: NICOTINE 21 MG/24 HOUR PATCH TD PRN (09:27)
[2020-06-16 09:36] VITALS: BP 132/78
[2020-06-16 16:18] VITALS: BP 111/79
[2020-06-16] MEDS: ACETAMINOPHEN 325 MG TABLET PO PRN (17:01)
[2020-06-16] MEDS: QUEtiapine FUMARATE 200 MG TABLET PO SCH (21:24)
[2020-06-17 00:06] VITALS: BP 100/62
[2020-06-17] MEDS: HALOPERIDOL 5 MG TABLET PO PRN ×3 (06:02→14:20)
[2020-06-17] MEDS: LORazepam 2 MG TABLET PO PRN ×3 (06:02→16:13)
[2020-06-17] MEDS: MULTIVITAMINS WITH MINERALS, THERAPEUTIC TABLET PO SCH (09:05)
[2020-06-17] MEDS: GABAPENTIN 400 MG CAPSULE PO SCH ×3 (09:05→16:13)
[2020-06-17] MEDS: FOLIC ACID 1 MG TABLET PO SCH (09:06)
[2020-06-17] MEDS: THIAMINE 100 MG TABLET PO SCH (09:06)
[2020-06-17] MEDS: CYCLOBENZAPRINE HCL 10 MG TABLET PO PRN (10:03)
[2020-06-17] MEDS: NICOTINE 21 MG/24 HOUR PATCH TD PRN (10:04)
[2020-06-17] MEDS: MAG HYDROX/AL HYDROX/SIMETH ES 30 ML SUSPENSION UDCUP PO PRN (12:05)
[2020-06-17 17:21] VITALS: BP 156/80
[2020-06-17] MEDS: QUEtiapine FUMARATE 200 MG TABLET PO SCH (20:07)
[2020-06-18 04:48] VITALS: BP 112/74
[2020-06-18] MEDS: LORazepam 2 MG TABLET PO PRN ×4 (05:47→22:29)
[2020-06-18] MEDS: NICOTINE 21 MG/24 HOUR PATCH TD PRN (08:22)
[2020-06-18] MEDS: GABAPENTIN 400 MG CAPSULE PO SCH ×3 (08:23→16:09)
[2020-06-18] MEDS: MULTIVITAMINS WITH MINERALS, THERAPEUTIC TABLET PO SCH (08:23)
[2020-06-18] MEDS: FOLIC ACID 1 MG TABLET PO SCH (08:23)
[2020-06-18] MEDS: THIAMINE 100 MG TABLET PO SCH (08:23)
[2020-06-18] MEDS: HALOPERIDOL 5 MG TABLET PO PRN ×3 (08:23→20:26)
[2020-06-18 16:28] VITALS: BP 131/94
[2020-06-18 20:10] VITALS: BP 125/82
[2020-06-18] MEDS: QUEtiapine FUMARATE 200 MG TABLET PO SCH (20:26)
[2020-06-18] MEDS: CYCLOBENZAPRINE HCL 10 MG TABLET PO PRN (20:26)
[2020-06-19 04:16] VITALS: BP 122/74
[2020-06-19] MEDS: LORazepam 2 MG TABLET PO PRN ×3 (06:42→17:37)
[2020-06-19 08:30] VITALS: BP 120/74
[2020-06-19] MEDS: FOLIC ACID 1 MG TABLET PO SCH (08:57)
[2020-06-19] MEDS: GABAPENTIN 400 MG CAPSULE PO SCH ×3 (08:57→16:20)
[2020-06-19] MEDS: THIAMINE 100 MG TABLET PO SCH (08:57)
[2020-06-19] MEDS: MULTIVITAMINS WITH MINERALS, THERAPEUTIC TABLET PO SCH (08:57)
[2020-06-19] MEDS: NICOTINE 21 MG/24 HOUR PATCH TD PRN (13:32)
[2020-06-19] MEDS: HALOPERIDOL 5 MG TABLET PO PRN (16:25)
[2020-06-19 17:44] VITALS: BP 129/90
[2020-06-19] MEDS: QUEtiapine FUMARATE 200 MG TABLET PO SCH (21:36)
[2020-06-20 00:13] VITALS: BP 114/75
[2020-06-20] MEDS: HALOPERIDOL 5 MG TABLET PO PRN ×2 (00:22→16:17)
[2020-06-20] MEDS: LORazepam 2 MG TABLET PO PRN ×4 (00:22→20:15)
[2020-06-20] MEDS: GABAPENTIN 400 MG CAPSULE PO SCH ×3 (08:47→16:17)
[2020-06-20] MEDS: MULTIVITAMINS WITH MINERALS, THERAPEUTIC TABLET PO SCH (08:47)
[2020-06-20] MEDS: THIAMINE 100 MG TABLET PO SCH (08:47)
[2020-06-20] MEDS: FOLIC ACID 1 MG TABLET PO SCH (08:49)
[2020-06-20] MEDS: NICOTINE 21 MG/24 HOUR PATCH TD PRN (09:11)
[2020-06-20 14:02] VITALS: BP 142/98
[2020-06-20] MEDS: CYCLOBENZAPRINE HCL 10 MG TABLET PO PRN (16:17)
[2020-06-20 16:18] VITALS: BP 135/81
[2020-06-20] MEDS: QUEtiapine FUMARATE 200 MG TABLET PO SCH (20:06)
[2020-06-21 03:06] VITALS: BP 118/89
[2020-06-21] MEDS: LORazepam 2 MG TABLET PO PRN ×4 (03:19→17:51)
[2020-06-21 08:15] VITALS: BP 111/85
[2020-06-21] MEDS: MULTIVITAMINS WITH MINERALS, THERAPEUTIC TABLET PO SCH (08:52)
[2020-06-21] MEDS: GABAPENTIN 400 MG CAPSULE PO SCH ×3 (08:52→15:59)
[2020-06-21] MEDS: FOLIC ACID 1 MG TABLET PO SCH (08:52)
[2020-06-21] MEDS: THIAMINE 100 MG TABLET PO SCH (08:52)
[2020-06-21] MEDS: NICOTINE 21 MG/24 HOUR PATCH TD PRN (09:11)
[2020-06-21] MEDS: HALOPERIDOL 5 MG TABLET PO PRN (15:59)
[2020-06-21 16:27] VITALS: BP 131/96
[2020-06-21] MEDS: QUEtiapine FUMARATE 200 MG TABLET PO SCH (21:00)
[2020-06-22 02:22] VITALS: BP 127/86
[2020-06-22] MEDS: LORazepam 2 MG TABLET PO PRN ×5 (06:05→21:46)
[2020-06-22] MEDS: HALOPERIDOL 5 MG TABLET PO PRN ×4 (06:05→21:46)
[2020-06-22 08:04] VITALS: BP 101/67
[2020-06-22] MEDS: THIAMINE 100 MG TABLET PO SCH (08:50)
[2020-06-22] MEDS: FOLIC ACID 1 MG TABLET PO SCH (08:50)
[2020-06-22] MEDS: MULTIVITAMINS WITH MINERALS, THERAPEUTIC TABLET PO SCH (08:50)
[2020-06-22] MEDS: GABAPENTIN 400 MG CAPSULE PO SCH ×3 (08:51→17:30)
[2020-06-22 16:23] VITALS: BP 125/91
[2020-06-22] MEDS: MAG HYDROX/AL HYDROX/SIMETH ES 30 ML SUSPENSION UDCUP PO PRN (16:37)
[2020-06-22] MEDS: QUEtiapine FUMARATE 200 MG TABLET PO SCH (21:46)
[2020-06-23 05:24] VITALS: BP 119/89
[2020-06-23] MEDS: HALOPERIDOL 5 MG TABLET PO PRN ×3 (06:21→21:11)
[2020-06-23] MEDS: LORazepam 2 MG TABLET PO PRN ×3 (06:21→21:02)
[2020-06-23 08:25] VITALS: BP 118/80
[2020-06-23] MEDS: THIAMINE 100 MG TABLET PO SCH (09:21)
[2020-06-23] MEDS: GABAPENTIN 400 MG CAPSULE PO SCH ×3 (09:21→16:21)
[2020-06-23] MEDS: FOLIC ACID 1 MG TABLET PO SCH (09:21)
[2020-06-23] MEDS: MULTIVITAMINS WITH MINERALS, THERAPEUTIC TABLET PO SCH (09:21)
[2020-06-23] MEDS: MAGNESIUM HYDROXIDE SUSPENSION 30 ML UDCUP PO PRN (10:22)
[2020-06-23] MEDS: NICOTINE 21 MG/24 HOUR PATCH TD PRN (11:25)
[2020-06-23] MEDS: ACETAMINOPHEN 325 MG TABLET PO PRN (16:22)
[2020-06-23 16:38] VITALS: BP 145/97
[2020-06-23 17:21] VITALS: BP 142/90
[2020-06-23] MEDS: BENZTROPINE MESYLATE 1 MG TABLET PO SCH (21:02)
[2020-06-23] MEDS: QUEtiapine FUMARATE 200 MG TABLET PO SCH (21:07)
[2020-06-24 01:58] VITALS: BP 108/79
[2020-06-24] MEDS: LORazepam 2 MG TABLET PO PRN ×4 (02:00→20:11)
[2020-06-24] MEDS: HALOPERIDOL 5 MG TABLET PO PRN (02:00)
[2020-06-24] MEDS: NICOTINE 21 MG/24 HOUR PATCH TD PRN (09:00)
[2020-06-24] MEDS: THIAMINE 100 MG TABLET PO SCH (09:01)
[2020-06-24] MEDS: FOLIC ACID 1 MG TABLET PO SCH (09:01)
[2020-06-24] MEDS: MULTIVITAMINS WITH MINERALS, THERAPEUTIC TABLET PO SCH (09:01)
[2020-06-24] MEDS: BENZTROPINE MESYLATE 1 MG TABLET PO SCH ×2 (09:01→16:31)
[2020-06-24] MEDS: GABAPENTIN 400 MG CAPSULE PO SCH ×3 (09:01→16:32)
[2020-06-24] MEDS: CYCLOBENZAPRINE HCL 10 MG TABLET PO PRN (14:01)
[2020-06-24 16:20] VITALS: BP 138/101
[2020-06-24] MEDS: QUEtiapine FUMARATE 200 MG TABLET PO SCH (20:58)
[2020-06-25 08:23] VITALS: BP 122/79
[2020-06-25] MEDS: FOLIC ACID 1 MG TABLET PO SCH (08:48)
[2020-06-25] MEDS: MULTIVITAMINS WITH MINERALS, THERAPEUTIC TABLET PO SCH (08:48)
[2020-06-25] MEDS: BENZTROPINE MESYLATE 1 MG TABLET PO SCH ×2 (08:48→17:14)
[2020-06-25] MEDS: GABAPENTIN 400 MG CAPSULE PO SCH ×3 (08:49→17:15)
[2020-06-25] MEDS: LORazepam 2 MG TABLET PO PRN ×3 (09:30→20:35)
[2020-06-25] MEDS: THIAMINE 100 MG TABLET PO SCH (09:57)
[2020-06-25] MEDS: NICOTINE 21 MG/24 HOUR PATCH TD PRN (13:46)
[2020-06-25] MEDS: ACETAMINOPHEN 325 MG TABLET PO PRN (14:17)
[2020-06-25] MEDS: CYCLOBENZAPRINE HCL 10 MG TABLET PO PRN (14:17)
[2020-06-25 16:20] VITALS: BP 125/96
[2020-06-25] MEDS: QUEtiapine FUMARATE 200 MG TABLET PO SCH (20:34)
[2020-06-26 04:16] VITALS: BP 120/87
[2020-06-26 08:24] VITALS: BP 114/78
[2020-06-26] MEDS: MULTIVITAMINS WITH MINERALS, THERAPEUTIC TABLET PO SCH (09:12)
[2020-06-26] MEDS: GABAPENTIN 400 MG CAPSULE PO SCH ×3 (09:13→16:37)
[2020-06-26] MEDS: THIAMINE 100 MG TABLET PO SCH (09:13)
[2020-06-26] MEDS: BENZTROPINE MESYLATE 1 MG TABLET PO SCH ×2 (09:13→16:37)
[2020-06-26] MEDS: FOLIC ACID 1 MG TABLET PO SCH (09:13)
[2020-06-26] MEDS: LORazepam 2 MG TABLET PO PRN ×2 (09:32→13:53)
[2020-06-26] MEDS: NICOTINE 21 MG/24 HOUR PATCH TD PRN (09:32)
[2020-06-26 17:27] VITALS: BP_SYST 81
[2020-06-26] MEDS: QUEtiapine FUMARATE 200 MG TABLET PO SCH (20:59)
[2020-06-27 00:37] VITALS: BP 133/87
[2020-06-27] MEDS: HALOPERIDOL 5 MG TABLET PO PRN (00:40)
[2020-06-27] MEDS: LORazepam 2 MG TABLET PO PRN ×4 (00:40→20:43)
[2020-06-27 08:33] VITALS: BP 131/93
[2020-06-27] MEDS: THIAMINE 100 MG TABLET PO SCH (09:03)
[2020-06-27] MEDS: NICOTINE 21 MG/24 HOUR PATCH TD PRN (09:03)
[2020-06-27] MEDS: MULTIVITAMINS WITH MINERALS, THERAPEUTIC TABLET PO SCH (09:03)
[2020-06-27] MEDS: BENZTROPINE MESYLATE 1 MG TABLET PO SCH ×2 (09:03→17:54)
[2020-06-27] MEDS: GABAPENTIN 400 MG CAPSULE PO SCH ×3 (09:03→17:54)
[2020-06-27] MEDS: FOLIC ACID 1 MG TABLET PO SCH (09:13)
[2020-06-27 16:06] VITALS: BP 131/92
[2020-06-27] MEDS: QUEtiapine FUMARATE 200 MG TABLET PO SCH (20:37)
[2020-06-27] MEDS: CYCLOBENZAPRINE HCL 10 MG TABLET PO PRN (20:43)
[2020-06-28 05:55] VITALS: BP 127/84
[2020-06-28] MEDS: GABAPENTIN 400 MG CAPSULE PO SCH ×3 (09:52→17:30)
[2020-06-28] MEDS: MULTIVITAMINS WITH MINERALS, THERAPEUTIC TABLET PO SCH (09:53)
[2020-06-28] MEDS: BENZTROPINE MESYLATE 1 MG TABLET PO SCH ×2 (09:53→17:30)
[2020-06-28] MEDS: LORazepam 2 MG TABLET PO PRN ×3 (09:53→18:05)
[2020-06-28] MEDS: THIAMINE 100 MG TABLET PO SCH (09:53)
[2020-06-28] MEDS: FOLIC ACID 1 MG TABLET PO SCH (09:53)
[2020-06-28] MEDS: NICOTINE 21 MG/24 HOUR PATCH TD PRN (10:02)
[2020-06-28 16:15] VITALS: BP 134/99
[2020-06-28] MEDS: CYCLOBENZAPRINE HCL 10 MG TABLET PO PRN (18:05)
[2020-06-28] MEDS: QUEtiapine FUMARATE 200 MG TABLET PO SCH (22:34)
[2020-06-29 05:50] VITALS: BP 131/89
[2020-06-29 08:33] VITALS: BP 107/68
[2020-06-29] MEDS: MULTIVITAMINS WITH MINERALS, THERAPEUTIC TABLET PO SCH (08:40)
[2020-06-29] MEDS: FOLIC ACID 1 MG TABLET PO SCH (08:40)
[2020-06-29] MEDS: LORazepam 2 MG TABLET PO PRN ×2 (08:40→17:15)
[2020-06-29] MEDS: GABAPENTIN 400 MG CAPSULE PO SCH ×3 (08:40→16:26)
[2020-06-29] MEDS: THIAMINE 100 MG TABLET PO SCH (08:40)
[2020-06-29] MEDS: NICOTINE 21 MG/24 HOUR PATCH TD PRN (08:40)
[2020-06-29] MEDS: BENZTROPINE MESYLATE 1 MG TABLET PO SCH ×2 (08:40→16:27)
[2020-06-29 16:06] VITALS: BP 119/82
[2020-06-29] MEDS: QUEtiapine FUMARATE 200 MG TABLET PO SCH (20:39)
[2020-06-30 04:00] VITALS: BP 106/74
[2020-06-30] MEDS: LORazepam 2 MG TABLET PO PRN ×3 (06:29→16:37)
[2020-06-30 08:48] VITALS: BP 111/75
[2020-06-30] MEDS: FOLIC ACID 1 MG TABLET PO SCH (08:55)
[2020-06-30] MEDS: BENZTROPINE MESYLATE 1 MG TABLET PO SCH ×2 (08:55→16:15)
[2020-06-30] MEDS: GABAPENTIN 400 MG CAPSULE PO SCH ×3 (08:55→16:15)
[2020-06-30] MEDS: MULTIVITAMINS WITH MINERALS, THERAPEUTIC TABLET PO SCH (08:55)
[2020-06-30] MEDS: THIAMINE 100 MG TABLET PO SCH (09:21)
[2020-06-30] MEDS: NICOTINE 21 MG/24 HOUR PATCH TD PRN (09:25)
[2020-06-30] MEDS ORDERED: TUBERCULIN, PURIFIED PROTEIN DERIVATIVE 5 TU/0.1 ML SYRINGE ID ONE (12:45)
[2020-06-30 16:30] VITALS: BP 117/84
[2020-06-30] MEDS: CYCLOBENZAPRINE HCL 10 MG TABLET PO PRN (16:36)
[2020-06-30 16:37] VITALS: BP 117/84
[2020-06-30] MEDS: ACETAMINOPHEN 325 MG TABLET PO PRN (16:37)
[2020-06-30] MEDS: QUEtiapine FUMARATE 200 MG TABLET PO SCH (20:26)
[2020-07-01 01:28] VITALS: BP 118/88
[2020-07-01 08:07] VITALS: BP 119/83
[2020-07-01] MEDS: BENZTROPINE MESYLATE 1 MG TABLET PO SCH (08:10)
[2020-07-01] MEDS: MULTIVITAMINS WITH MINERALS, THERAPEUTIC TABLET PO SCH (08:10)
[2020-07-01] MEDS: FOLIC ACID 1 MG TABLET PO SCH (08:10)
[2020-07-01] MEDS: THIAMINE 100 MG TABLET PO SCH (08:10)
[2020-07-01] MEDS: GABAPENTIN 400 MG CAPSULE PO SCH ×2 (08:10→13:47)
[2020-07-01] MEDS: NICOTINE 21 MG/24 HOUR PATCH TD PRN (09:23)
[2020-07-01 12:11] LABS: COVID AG,FIA SOURCE NASAL SWAB
[2020-07-01] MEDS ORDERED: BENZ2TAB10 PO (13:38)
== END 2020-07-01 16:03 | disposition designated cancer center or children's hospital (05) | DRG 750 ==
LOC: EMS 20:50 → B3A 04-07 11:32
PROVIDERS: ADMIT Psychiatry & Neurology Child & Adolescent Psychiatry; ATTEND Psychiatry & Neurology Child & Adolescent Psychiatry
DX: F25.9 Schizoaffective disorder, unspecified (principal); I10 Essential (primary) hypertension; J44.9 Chronic obstructive pulmonary disease, unspecified; M19.90 Unspecified osteoarthritis, unspecified site; D64.9 Anemia, unspecified; R45.851 Suicidal ideations; R56.9 Unspecified convulsions; Z20.822 Contact with and (suspected) exposure to COVID-19; F41.9 Anxiety disorder, unspecified; G47.00 Insomnia, unspecified; Z59.0 Homelessness; Z87.891 Personal history of nicotine dependence; Z91.19 Patient's noncompliance with other medical treatment and regimen; Z28.21 Immunization not carried out because of patient refusal
CPT/HCPCS: 80307; 84439; 84443; 87081; 87426; 93005; 99291; G0480; J1200; J1630; J2060; 36415-L1; 36415-TC; 71045-TC; 81003-TC; U0003

== ENCOUNTER 2020-11-10 21:46 | Inpatient (IN) | payer MEDICAID ==
[~2020-11-10] VITALS: Ht 190.5 cm; Wt 88.7 kg
[~2020-11-10 21:46] MED LIST changes: +BENZ2TAB10 PO; -GABA-1181 PO; +GABA-1201 PO
[2020-11-11] MEDS ORDERED: ZOLPIDEM TARTRATE 10 MG TABLET PO PRN (02:30)
[2020-11-11 03:55] VITALS: BP 112/79
[2020-11-11] MEDS: LORazepam 2 MG TABLET PO PRN ×2 (08:00→16:29)
[2020-11-11] MEDS: QUEtiapine FUMARATE 100 MG TABLET PO PRN ×2 (08:00→16:29)
[2020-11-11 08:32] VITALS: BP 149/100
[2020-11-11] MEDS: NICOTINE 21 MG/24 HOUR PATCH TD SCH (08:51)
[2020-11-11] MEDS ORDERED: PROMETHAZINE HCL 25 MG TABLET PO PRN (10:15)
[2020-11-11] MEDS ORDERED: LOPERAMIDE HCL 2 MG CAPSULE PO PRN (10:15)
[2020-11-11] MEDS ORDERED: GuaiFENesin/D-METHORPHAN [SUGAR-FREE] 200-20MG/10 ML SYRUP UDCUP PO PRN (10:15)
[2020-11-11] MEDS ORDERED: MAGNESIUM HYDROXIDE SUSPENSION 30 ML UDCUP PO PRN (10:15)
[2020-11-11] MEDS ORDERED: HydrOXYzine PAMOATE 50 MG CAPSULE PO PRN (10:15)
[2020-11-11] MEDS ORDERED: MAG HYDROX/AL HYDROX/SIMETH ES 30 ML SUSPENSION UDCUP PO PRN (10:15)
[2020-11-11] MEDS ORDERED: TUBERCULIN, PURIFIED PROTEIN DERIVATIVE 5 TU/0.1 ML SYRINGE ID ONE (10:15)
[2020-11-11] MEDS ORDERED: ACETAMINOPHEN 325 MG TABLET PO PRN (10:15)
[2020-11-11 16:11] VITALS: BP 106/71
[2020-11-11] MEDS: THIAMINE 100 MG TABLET PO SCH (16:29)
[2020-11-11] MEDS ORDERED: QUEtiapine FUMARATE 200 MG TABLET PO SCH (21:00)
[2020-11-11] MEDS: MELATONIN 5 MG TABLET PO SCH (21:10)
[2020-11-12 05:56] VITALS: BP 124/78
[2020-11-12 07:05] VITALS: BP 133/88
[2020-11-12] MEDS: LORazepam 2 MG TABLET PO PRN ×3 (07:05→15:41)
[2020-11-12] MEDS: OMEGA-3/DHA/EPA/FISH OIL 1,000 MG CAPSULE PO SCH (08:18)
[2020-11-12] MEDS: NALTREXONE HCL 50 MG TABLET PO SCH (08:18)
[2020-11-12] MEDS: NICOTINE 21 MG/24 HOUR PATCH TD SCH (08:18)
[2020-11-12] MEDS: THIAMINE 100 MG TABLET PO SCH (08:18)
[2020-11-12] MEDS: MULTIVITAMINS WITH MINERALS, THERAPEUTIC TABLET PO SCH (08:18)
[2020-11-12] MEDS: FOLIC ACID 1 MG TABLET PO SCH (08:18)
[2020-11-12 08:40] VITALS: BP 124/86
[2020-11-12 09:08] LABS: BASOPHILS % (AUTO) 0.4 % (0.0-2.0); EOSINOPHILS % (AUTO) 2.4 % (1.0-6.0); HEMATOCRIT 44.2 % (41-53); HEMOGLOBIN 14.7 g/dL (13.5-17.5); LYMPHOCYTES # (AUTO) 1.6 K/uL (1.0-4.8); LYMPHOCYTES % (AUTO) 20.9 % (22.0-44.0); MEAN CORPUSCULAR HEMOGLOBIN 31.9 pg (26.0-34.0); MEAN CORPUSCULAR HGB CONC 33.3 G/dL (31.0-37.0); MEAN CORPUSCULAR VOLUME 96 fL (80-100); MONOCYTES # (AUTO) 0.4 K/uL (0.1-1.0); MONOCYTES % (AUTO) 5.9 % (2.0-9.0); NEUTROPHILS # (AUTO) 5.3 K/uL (1.8-7.7); NEUTROPHILS % (AUTO) 70.4 % (40.0-70.0); PLATELET COUNT (AUTO) 264 K/uL (150-450); RED BLOOD CELL COUNT(AUTO) 4.62 MIL/uL (4.50-5.90); RED CELL DISTRIBUTION WIDTH 14.6 % (11.5-14.5)
[2020-11-12 09:24] LABS: HEMOGLOBIN A1C 5.6 % (3.8-5.6)
[2020-11-12 10:35] LABS: ALANINE AMINOTRANSFERASE 27 U/L (12-78); ALBUMIN 3.4 g/dL (3.4-5.0); ALKALINE PHOSPHATASE 105 U/L (46-116); ANION GAP 10 mmol/L (8-16); ASPARTATE AMINOTRANSFERASE 17 U/L (15-37); BILIRUBIN,TOTAL 0.3 mg/dL (0.1-1.0); CALCIUM, TOTAL 8.7 mg/dL (8.8-10.5); CARBON DIOXIDE 23 mmol/L (22-29); CHLORIDE 103 mmol/L (98-107); CHOL/HDL RATIO 3.2 (4.2-7.3); CHOLESTEROL 159 mg/dL (131-200); CREATININE 0.89 mg/dL (0.60-1.30); FREE T4 (FREE THYROXINE) 1.17 ng/dL (0.76-1.46); GLOMERULAR FILTR. RATE CALC > 60 mL/min (>60); GLUCOSE,RANDOM 149 mg/dL (70-110); HDL CHOLESTEROL 49 mg/dL (40-60); LDL CHOL (CALC.) 93 mg/dL (0-130); POTASSIUM 4.3 mmol/L (3.5-5.1); SODIUM SERUM 136 mmol/L (136-145); THYROID STIMULATING HORMONE 0.83 uIU/mL (0.36-3.74); TRIGLYCERIDES 84 mg/dL (15-150); UREA NITROGEN, BLOOD 15 mg/dL (7-18)
[2020-11-12] MEDS: QUEtiapine FUMARATE 100 MG TABLET PO PRN (15:41)
[2020-11-12 16:00] VITALS: BP 126/80
[2020-11-12] MEDS ORDERED: QUEtiapine FUMARATE 200 MG TABLET PO SCH (21:00)
[2020-11-12] MEDS: GABAPENTIN 300 MG CAPSULE PO SCH (21:03)
[2020-11-12] MEDS: MELATONIN 5 MG TABLET PO SCH (21:03)
[2020-11-13 01:45] VITALS: BP 131/79
[2020-11-13 08:38] VITALS: BP 105/70
[2020-11-13] MEDS: LORazepam 2 MG TABLET PO PRN ×3 (09:25→17:54)
[2020-11-13] MEDS: MUPIROCIN CALCIUM 2% 22 GM OINTMENT NASAL SCH ×2 (09:32→17:16)
[2020-11-13] MEDS: OMEGA-3/DHA/EPA/FISH OIL 1,000 MG CAPSULE PO SCH (09:32)
[2020-11-13] MEDS: FOLIC ACID 1 MG TABLET PO SCH (09:33)
[2020-11-13] MEDS: THIAMINE 100 MG TABLET PO SCH ×2 (09:33→17:12)
[2020-11-13] MEDS: NALTREXONE HCL 50 MG TABLET PO SCH (09:33)
[2020-11-13] MEDS: NICOTINE 21 MG/24 HOUR PATCH TD SCH (09:33)
[2020-11-13] MEDS: MULTIVITAMINS WITH MINERALS, THERAPEUTIC TABLET PO SCH (09:33)
[2020-11-13 16:18] VITALS: BP 132/76
[2020-11-13] MEDS: MELATONIN 5 MG TABLET PO SCH (21:30)
[2020-11-13] MEDS: GABAPENTIN 300 MG CAPSULE PO SCH (21:30)
[2020-11-13] MEDS: QUEtiapine FUMARATE 200 MG TABLET PO SCH (21:30)
[2020-11-14 01:18] VITALS: BP 133/79
[2020-11-14] MEDS: LORazepam 2 MG TABLET PO PRN ×4 (04:17→18:33)
[2020-11-14 08:52] VITALS: BP 100/72
[2020-11-14 08:54] VITALS: BP_SYST 100; BP_SYST 149; BP_DIAS 72; BP_DIAS 94
[2020-11-14] MEDS: NICOTINE 21 MG/24 HOUR PATCH TD SCH (09:19)
[2020-11-14] MEDS: THIAMINE 100 MG TABLET PO SCH ×2 (09:20→16:04)
[2020-11-14] MEDS: OMEGA-3/DHA/EPA/FISH OIL 1,000 MG CAPSULE PO SCH (09:20)
[2020-11-14] MEDS: NALTREXONE HCL 50 MG TABLET PO SCH (09:20)
[2020-11-14] MEDS: FOLIC ACID 1 MG TABLET PO SCH (09:20)
[2020-11-14] MEDS: MULTIVITAMINS WITH MINERALS, THERAPEUTIC TABLET PO SCH (09:20)
[2020-11-14] MEDS: MUPIROCIN CALCIUM 2% 22 GM OINTMENT NASAL SCH ×2 (09:21→16:04)
[2020-11-14] MEDS: QUEtiapine FUMARATE 100 MG TABLET PO PRN ×2 (09:26→13:42)
[2020-11-14 16:22] VITALS: BP 109/69
[2020-11-14] MEDS: MELATONIN 5 MG TABLET PO SCH (20:50)
[2020-11-14] MEDS: GABAPENTIN 300 MG CAPSULE PO SCH (20:50)
[2020-11-14] MEDS: QUEtiapine FUMARATE 200 MG TABLET PO SCH (20:50)
[2020-11-15 00:40] VITALS: BP 139/79
[2020-11-15 08:21] VITALS: BP 126/86
[2020-11-15] MEDS: NICOTINE 21 MG/24 HOUR PATCH TD SCH (09:26)
[2020-11-15] MEDS: MULTIVITAMINS WITH MINERALS, THERAPEUTIC TABLET PO SCH (09:26)
[2020-11-15] MEDS: THIAMINE 100 MG TABLET PO SCH ×2 (09:27→16:57)
[2020-11-15] MEDS: LORazepam 2 MG TABLET PO PRN ×3 (09:27→18:58)
[2020-11-15] MEDS: FOLIC ACID 1 MG TABLET PO SCH (09:27)
[2020-11-15] MEDS: MUPIROCIN CALCIUM 2% 22 GM OINTMENT NASAL SCH ×2 (09:27→16:58)
[2020-11-15] MEDS: NALTREXONE HCL 50 MG TABLET PO SCH (09:27)
[2020-11-15] MEDS: OMEGA-3/DHA/EPA/FISH OIL 1,000 MG CAPSULE PO SCH (09:27)
[2020-11-15 16:28] VITALS: BP 122/77
[2020-11-15] MEDS: GABAPENTIN 300 MG CAPSULE PO SCH (20:46)
[2020-11-15] MEDS: QUEtiapine FUMARATE 200 MG TABLET PO SCH (20:46)
[2020-11-15] MEDS: MELATONIN 5 MG TABLET PO SCH (20:46)
[2020-11-16 00:26] VITALS: BP 127/83
[2020-11-16 07:17] LABS: COVID AG,FIA SOURCE NASOPHARYNGEAL
[2020-11-16 08:28] VITALS: BP 109/64
[2020-11-16] MEDS: MULTIVITAMINS WITH MINERALS, THERAPEUTIC TABLET PO SCH (08:59)
[2020-11-16] MEDS: FOLIC ACID 1 MG TABLET PO SCH (08:59)
[2020-11-16] MEDS: NALTREXONE HCL 50 MG TABLET PO SCH (08:59)
[2020-11-16] MEDS: THIAMINE 100 MG TABLET PO SCH ×2 (08:59→16:47)
[2020-11-16] MEDS: OMEGA-3/DHA/EPA/FISH OIL 1,000 MG CAPSULE PO SCH (08:59)
[2020-11-16] MEDS: NICOTINE 21 MG/24 HOUR PATCH TD SCH (09:00)
[2020-11-16] MEDS: MUPIROCIN CALCIUM 2% 22 GM OINTMENT NASAL SCH ×2 (09:09→16:47)
[2020-11-16] MEDS: LORazepam 2 MG TABLET PO PRN ×3 (09:16→18:45)
[2020-11-16 16:20] VITALS: BP 121/88
[2020-11-16] MEDS: GABAPENTIN 300 MG CAPSULE PO SCH (20:42)
[2020-11-16] MEDS: QUEtiapine FUMARATE 200 MG TABLET PO SCH (20:42)
[2020-11-16] MEDS: MELATONIN 5 MG TABLET PO SCH (20:42)
[2020-11-17 00:20] VITALS: BP 115/66
[2020-11-17] MEDS: LORazepam 2 MG TABLET PO PRN ×4 (06:46→19:17)
[2020-11-17 09:05] VITALS: BP 103/77
[2020-11-17] MEDS: FOLIC ACID 1 MG TABLET PO SCH (09:57)
[2020-11-17] MEDS: NALTREXONE HCL 50 MG TABLET PO SCH (09:57)
[2020-11-17] MEDS: THIAMINE 100 MG TABLET PO SCH ×2 (09:57→16:46)
[2020-11-17] MEDS: OMEGA-3/DHA/EPA/FISH OIL 1,000 MG CAPSULE PO SCH (09:57)
[2020-11-17] MEDS: MULTIVITAMINS WITH MINERALS, THERAPEUTIC TABLET PO SCH (09:57)
[2020-11-17] MEDS: MUPIROCIN CALCIUM 2% 22 GM OINTMENT NASAL SCH (09:57)
[2020-11-17] MEDS: NICOTINE 21 MG/24 HOUR PATCH TD SCH (09:58)
[2020-11-17 16:25] VITALS: BP 104/67
[2020-11-17] MEDS: GABAPENTIN 300 MG CAPSULE PO SCH (20:57)
[2020-11-17] MEDS: QUEtiapine FUMARATE 200 MG TABLET PO SCH (20:57)
[2020-11-17] MEDS: MELATONIN 5 MG TABLET PO SCH (20:57)
[2020-11-18 00:38] VITALS: BP 113/73
[2020-11-18] MEDS: FOLIC ACID 1 MG TABLET PO SCH (09:09)
[2020-11-18] MEDS: THIAMINE 100 MG TABLET PO SCH ×2 (09:09→16:35)
[2020-11-18] MEDS: MULTIVITAMINS WITH MINERALS, THERAPEUTIC TABLET PO SCH (09:09)
[2020-11-18] MEDS: OMEGA-3/DHA/EPA/FISH OIL 1,000 MG CAPSULE PO SCH (09:09)
[2020-11-18] MEDS: NALTREXONE HCL 50 MG TABLET PO SCH (09:09)
[2020-11-18] MEDS: NICOTINE 21 MG/24 HOUR PATCH TD SCH (09:14)
[2020-11-18 09:49] VITALS: BP 118/70
[2020-11-18 16:16] VITALS: BP 112/83
[2020-11-18] MEDS: QUEtiapine FUMARATE 200 MG TABLET PO SCH (20:44)
[2020-11-18] MEDS: GABAPENTIN 300 MG CAPSULE PO SCH (20:44)
[2020-11-18] MEDS: MELATONIN 5 MG TABLET PO SCH (20:45)
[2020-11-19 04:11] VITALS: BP 104/62
[2020-11-19 08:48] VITALS: BP 110/74
[2020-11-19 08:51] VITALS: BP 110/74
[2020-11-19] MEDS: NICOTINE 21 MG/24 HOUR PATCH TD SCH (09:49)
[2020-11-19] MEDS: NALTREXONE HCL 50 MG TABLET PO SCH (09:49)
[2020-11-19] MEDS: MULTIVITAMINS WITH MINERALS, THERAPEUTIC TABLET PO SCH (09:50)
[2020-11-19] MEDS: FOLIC ACID 1 MG TABLET PO SCH (09:50)
[2020-11-19] MEDS: OMEGA-3/DHA/EPA/FISH OIL 1,000 MG CAPSULE PO SCH (09:50)
[2020-11-19] MEDS: THIAMINE 100 MG TABLET PO SCH ×2 (09:50→16:05)
[2020-11-19] MEDS: LORazepam 2 MG TABLET PO PRN (16:05)
[2020-11-19 16:35] VITALS: BP 104/74
[2020-11-19] MEDS: QUEtiapine FUMARATE 200 MG TABLET PO SCH (20:48)
[2020-11-19] MEDS: GABAPENTIN 300 MG CAPSULE PO SCH (20:48)
[2020-11-19] MEDS: MELATONIN 5 MG TABLET PO SCH (20:48)
[2020-11-20 01:06] VITALS: BP 115/70
[2020-11-20 08:16] VITALS: BP 101/65
[2020-11-20] MEDS: FLUoxetine HCL 20 MG CAPSULE PO SCH (09:10)
[2020-11-20] MEDS: OMEGA-3/DHA/EPA/FISH OIL 1,000 MG CAPSULE PO SCH (09:10)
[2020-11-20] MEDS: NALTREXONE HCL 50 MG TABLET PO SCH (09:11)
[2020-11-20] MEDS: MULTIVITAMINS WITH MINERALS, THERAPEUTIC TABLET PO SCH (09:11)
[2020-11-20] MEDS: NICOTINE 21 MG/24 HOUR PATCH TD SCH (09:11)
[2020-11-20] MEDS: THIAMINE 100 MG TABLET PO SCH ×2 (09:11→18:02)
[2020-11-20] MEDS: FOLIC ACID 1 MG TABLET PO SCH (09:11)
[2020-11-20] MEDS: LORazepam 2 MG TABLET PO PRN ×2 (10:27→14:29)
[2020-11-20] MEDS ORDERED: QUET200T30 PO (14:12)
[2020-11-20] MEDS ORDERED: MELA5TAB3 PO (14:12)
[2020-11-20] MEDS ORDERED: OMEG-135 PO (14:12)
[2020-11-20] MEDS ORDERED: NALT50TA PO (14:12)
[2020-11-20] MEDS ORDERED: GABA-1181 PO (14:12)
[2020-11-20] MEDS ORDERED: FLUO20CA36 PO (14:12)
[2020-11-20 16:12] VITALS: BP 132/74
[2020-11-20] MEDS: MELATONIN 5 MG TABLET PO SCH (20:17)
[2020-11-20] MEDS: QUEtiapine FUMARATE 200 MG TABLET PO SCH (20:17)
[2020-11-20] MEDS: GABAPENTIN 300 MG CAPSULE PO SCH (20:17)
[2020-11-21 00:34] VITALS: BP 109/65
[2020-11-21] MEDS: NICOTINE 21 MG/24 HOUR PATCH TD SCH (08:03)
[2020-11-21] MEDS: FOLIC ACID 1 MG TABLET PO SCH (08:03)
[2020-11-21] MEDS: LORazepam 2 MG TABLET PO PRN ×3 (08:03→16:35)
[2020-11-21] MEDS: NALTREXONE HCL 50 MG TABLET PO SCH (08:03)
[2020-11-21] MEDS: MULTIVITAMINS WITH MINERALS, THERAPEUTIC TABLET PO SCH (08:03)
[2020-11-21] MEDS: OMEGA-3/DHA/EPA/FISH OIL 1,000 MG CAPSULE PO SCH (08:03)
[2020-11-21] MEDS: THIAMINE 100 MG TABLET PO SCH (08:03)
[2020-11-21] MEDS: FLUoxetine HCL 20 MG CAPSULE PO SCH (08:03)
[2020-11-21 08:15] VITALS: BP 109/86
[2020-11-21 16:18] VITALS: BP 118/81
[2020-11-21] MEDS: QUEtiapine FUMARATE 200 MG TABLET PO SCH (20:22)
[2020-11-21] MEDS: MELATONIN 5 MG TABLET PO SCH (20:22)
[2020-11-21] MEDS: GABAPENTIN 300 MG CAPSULE PO SCH (20:22)
[2020-11-22 01:18] VITALS: BP 110/72
[2020-11-22 08:20] VITALS: BP 105/75
[2020-11-22] MEDS: NALTREXONE HCL 50 MG TABLET PO SCH (08:38)
[2020-11-22] MEDS: OMEGA-3/DHA/EPA/FISH OIL 1,000 MG CAPSULE PO SCH (08:38)
[2020-11-22] MEDS: FLUoxetine HCL 20 MG CAPSULE PO SCH (08:38)
[2020-11-22] MEDS: NICOTINE 21 MG/24 HOUR PATCH TD SCH (08:38)
[2020-11-22] MEDS: MULTIVITAMINS WITH MINERALS, THERAPEUTIC TABLET PO SCH (08:38)
[2020-11-22] MEDS: LORazepam 2 MG TABLET PO PRN ×2 (11:09→16:03)
[2020-11-22 17:44] VITALS: BP 109/79
[2020-11-22] MEDS: MELATONIN 5 MG TABLET PO SCH (20:25)
[2020-11-22] MEDS: GABAPENTIN 300 MG CAPSULE PO SCH (20:25)
[2020-11-22] MEDS: QUEtiapine FUMARATE 200 MG TABLET PO SCH (20:25)
[2020-11-23 01:31] VITALS: BP 107/72
[2020-11-23] MEDS: NICOTINE 21 MG/24 HOUR PATCH TD SCH (09:21)
[2020-11-23] MEDS: MULTIVITAMINS WITH MINERALS, THERAPEUTIC TABLET PO SCH (09:21)
[2020-11-23] MEDS: NALTREXONE HCL 50 MG TABLET PO SCH (09:21)
[2020-11-23] MEDS: OMEGA-3/DHA/EPA/FISH OIL 1,000 MG CAPSULE PO SCH (09:21)
[2020-11-23] MEDS: FLUoxetine HCL 20 MG CAPSULE PO SCH (09:21)
[2020-11-23 09:31] VITALS: BP 111/66
[2020-11-23] MEDS: LORazepam 2 MG TABLET PO PRN ×3 (10:02→18:54)
[2020-11-23 16:20] VITALS: BP 106/76
[2020-11-23] MEDS: GABAPENTIN 300 MG CAPSULE PO SCH (20:50)
[2020-11-23] MEDS: MELATONIN 5 MG TABLET PO SCH (20:50)
[2020-11-23] MEDS: QUEtiapine FUMARATE 200 MG TABLET PO SCH (20:50)
[2020-11-24 05:52] VITALS: BP 128/59
[2020-11-24] MEDS: LORazepam 2 MG TABLET PO PRN (07:40)
[2020-11-24 08:05] LABS: COVID AG,FIA SOURCE NASOPHARYNGEAL
[2020-11-24 08:26] VITALS: BP 138/78
[2020-11-24] MEDS: NICOTINE 21 MG/24 HOUR PATCH TD SCH (08:58)
[2020-11-24] MEDS: MULTIVITAMINS WITH MINERALS, THERAPEUTIC TABLET PO SCH (08:58)
[2020-11-24] MEDS: NALTREXONE HCL 50 MG TABLET PO SCH (08:59)
[2020-11-24] MEDS: OMEGA-3/DHA/EPA/FISH OIL 1,000 MG CAPSULE PO SCH (08:59)
[2020-11-24] MEDS: FLUoxetine HCL 20 MG CAPSULE PO SCH (08:59)
== END 2020-11-24 11:30 | disposition home or self-care (01) | DRG 750 ==
LOC: B3A 11-11 02:20 → 2WR 11-12 16:00 → B2S 11-12 18:07
PROVIDERS: ADMIT Psychiatry & Neurology Psychiatry; ATTEND Psychiatry & Neurology Psychiatry
DX: F25.0 Schizoaffective disorder, bipolar type (principal); Z59.0 Homelessness; F17.200 Nicotine dependence, unspecified, uncomplicated; F41.9 Anxiety disorder, unspecified; G47.00 Insomnia, unspecified; J44.9 Chronic obstructive pulmonary disease, unspecified; M19.90 Unspecified osteoarthritis, unspecified site; Z79.899 Other long term (current) drug therapy; Z20.822 Contact with and (suspected) exposure to COVID-19; Z91.5 Personal history of self-harm
CPT/HCPCS: 80053; 80061; 83036; 84436; 84439; 84443; 85025; 86592; 87081; A9575

== ENCOUNTER 2020-12-19 17:19 | Inpatient (IN) | payer MEDICAID ==
[~2020-12-19] VITALS: Ht 190.5 cm; Wt 88.8 kg
[~2020-12-19 17:19] MED LIST changes: -BENZ2TAB10 PO; +FLUO20CA36 PO; +GABA-1181 PO; -GABA-1201 PO; +MELA5TAB40 PO; +NALT50TA PO; +OMEG-135 PO; +QUET200T30 PO
[2020-12-19] MEDS ORDERED: GuaiFENesin/D-METHORPHAN [SUGAR-FREE] 200-20MG/10 ML SYRUP UDCUP PO PRN (19:30)
[2020-12-19] MEDS ORDERED: MAGNESIUM HYDROXIDE SUSPENSION 30 ML UDCUP PO PRN (19:30)
[2020-12-19] MEDS ORDERED: ACETAMINOPHEN 325 MG TABLET PO PRN (19:30)
[2020-12-19] MEDS ORDERED: HydrOXYzine PAMOATE 50 MG CAPSULE PO PRN (19:30)
[2020-12-19] MEDS ORDERED: LOPERAMIDE HCL 2 MG CAPSULE PO PRN (19:30)
[2020-12-19] MEDS ORDERED: PROMETHAZINE HCL 25 MG TABLET PO PRN (19:30)
[2020-12-19 20:07] LABS: BASOPHILS % (AUTO) 0.3 % (0.0-2.0); EOSINOPHILS % (AUTO) 1.1 % (1.0-6.0); HEMATOCRIT 47.7 % (41-53); HEMOGLOBIN 15.7 g/dL (13.5-17.5); LYMPHOCYTES # (AUTO) 2.4 K/uL (1.0-4.8); LYMPHOCYTES % (AUTO) 22.8 % (22.0-44.0); MEAN CORPUSCULAR HEMOGLOBIN 31.8 pg (26.0-34.0); MEAN CORPUSCULAR HGB CONC 32.8 G/dL (31.0-37.0); MEAN CORPUSCULAR VOLUME 97 fL (80-100); MONOCYTES # (AUTO) 0.8 K/uL (0.1-1.0); MONOCYTES % (AUTO) 7.2 % (2.0-9.0); NEUTROPHILS # (AUTO) 7.2 K/uL (1.8-7.7); NEUTROPHILS % (AUTO) 68.6 % (40.0-70.0); PLATELET COUNT (AUTO) 257 K/uL (150-450); RED BLOOD CELL COUNT(AUTO) 4.92 MIL/uL (4.50-5.90); RED CELL DISTRIBUTION WIDTH 14.8 % (11.5-14.5)
[2020-12-19 20:10] LABS: COVID AG,FIA SOURCE NASOPHARYNGEAL
[2020-12-19 20:12] LABS: ANION GAP 12 mmol/L (8-16); CALCIUM, TOTAL 9.5 mg/dL (8.8-10.5); CARBON DIOXIDE 24 mmol/L (22-29); CHLORIDE 104 mmol/L (98-107); CREATININE 0.98 mg/dL (0.60-1.30); GLOMERULAR FILTR. RATE CALC > 60 mL/min (>60); GLUCOSE,RANDOM 118 mg/dL (70-110); POTASSIUM 3.7 mmol/L (3.5-5.1); SODIUM SERUM 140 mmol/L (136-145); UREA NITROGEN, BLOOD 7 mg/dL (7-18)
[2020-12-19 20:18] LABS: ALANINE AMINOTRANSFERASE 25 U/L (12-78); ALBUMIN 4.5 g/dL (3.4-5.0); ALKALINE PHOSPHATASE 102 U/L (46-116); ASPARTATE AMINOTRANSFERASE 20 U/L (15-37); BILIRUBIN,TOTAL 0.5 mg/dL (0.1-1.0); TOTAL PROTEIN, SERUM 8.3 g/dL (6.4-8.2)
[2020-12-19 21:43] VITALS: BP 149/90
[2020-12-19] MEDS: QUEtiapine FUMARATE 200 MG TABLET PO SCH (22:13)
[2020-12-19] MEDS: GABAPENTIN 300 MG CAPSULE PO SCH (22:13)
[2020-12-19] MEDS: MELATONIN 5 MG TABLET PO SCH (22:13)
[2020-12-19] MEDS: THIAMINE 100 MG TABLET PO SCH (22:13)
[2020-12-19] MEDS: LORazepam 2 MG TABLET PO PRN (22:17)
[2020-12-19] MEDS: MAG HYDROX/AL HYDROX/SIMETH ES 30 ML SUSPENSION UDCUP PO PRN (22:18)
[2020-12-19] MEDS: PALIPERIDONE PALMITATE 234 MG/1.5 ML SYRINGE IM ONE ×2 (22:23→22:35)
[2020-12-20 06:26] LABS: HEMOGLOBIN A1C 5.6 % (3.8-5.6)
[2020-12-20 06:43] LABS: CHOL/HDL RATIO 2.6 (4.2-7.3)
[2020-12-20 09:08] VITALS: BP 126/84
[2020-12-20] MEDS: NALTREXONE HCL 50 MG TABLET PO SCH (09:34)
[2020-12-20] MEDS: FOLIC ACID 1 MG TABLET PO SCH (09:34)
[2020-12-20] MEDS: OMEGA-3/DHA/EPA/FISH OIL 1,000 MG CAPSULE PO SCH (09:34)
[2020-12-20] MEDS: MULTIVITAMINS WITH MINERALS, THERAPEUTIC TABLET PO SCH (09:34)
[2020-12-20] MEDS: GABAPENTIN 300 MG CAPSULE PO SCH ×3 (09:34→17:34)
[2020-12-20] MEDS: THIAMINE 100 MG TABLET PO SCH ×2 (09:34→17:34)
[2020-12-20] MEDS: FLUoxetine HCL 20 MG CAPSULE PO SCH (09:34)
[2020-12-20] MEDS: NICOTINE 21 MG/24 HOUR PATCH TD SCH (09:40)
[2020-12-20] MEDS: LORazepam 2 MG TABLET PO PRN ×2 (12:04→18:05)
[2020-12-20 16:00] VITALS: BP 120/68
[2020-12-20] MEDS: MELATONIN 5 MG TABLET PO SCH (21:15)
[2020-12-20] MEDS: QUEtiapine FUMARATE 100 MG TABLET PO PRN (21:15)
[2020-12-20] MEDS: ZOLPIDEM TARTRATE 10 MG TABLET PO PRN (21:16)
[2020-12-20] MEDS: QUEtiapine FUMARATE 200 MG TABLET PO SCH (21:27)
[2020-12-21] MEDS: FOLIC ACID 1 MG TABLET PO SCH (08:00)
[2020-12-21] MEDS: FLUoxetine HCL 20 MG CAPSULE PO SCH (08:00)
[2020-12-21] MEDS: THIAMINE 100 MG TABLET PO SCH ×2 (08:00→17:15)
[2020-12-21] MEDS: MULTIVITAMINS WITH MINERALS, THERAPEUTIC TABLET PO SCH (08:00)
[2020-12-21] MEDS: NALTREXONE HCL 50 MG TABLET PO SCH (08:00)
[2020-12-21] MEDS: OMEGA-3/DHA/EPA/FISH OIL 1,000 MG CAPSULE PO SCH (08:00)
[2020-12-21] MEDS: GABAPENTIN 300 MG CAPSULE PO SCH ×3 (08:00→17:15)
[2020-12-21] MEDS: LORazepam 2 MG TABLET PO PRN ×3 (08:00→17:26)
[2020-12-21] MEDS: NICOTINE 21 MG/24 HOUR PATCH TD SCH (08:04)
[2020-12-21 08:48] VITALS: BP 123/93
[2020-12-21 16:00] VITALS: BP 131/88
[2020-12-21] MEDS: MELATONIN 5 MG TABLET PO SCH (21:11)
[2020-12-21] MEDS: QUEtiapine FUMARATE 200 MG TABLET PO SCH (21:11)
[2020-12-21] MEDS: ZOLPIDEM TARTRATE 10 MG TABLET PO PRN (21:11)
[2020-12-22] MEDS: MULTIVITAMINS WITH MINERALS, THERAPEUTIC TABLET PO SCH (09:47)
[2020-12-22] MEDS: FOLIC ACID 1 MG TABLET PO SCH (09:47)
[2020-12-22] MEDS: OMEGA-3/DHA/EPA/FISH OIL 1,000 MG CAPSULE PO SCH (09:47)
[2020-12-22] MEDS: THIAMINE 100 MG TABLET PO SCH ×2 (09:48→16:23)
[2020-12-22] MEDS: FLUoxetine HCL 20 MG CAPSULE PO SCH (09:48)
[2020-12-22] MEDS: NALTREXONE HCL 50 MG TABLET PO SCH (09:48)
[2020-12-22] MEDS: GABAPENTIN 300 MG CAPSULE PO SCH ×3 (09:48→16:23)
[2020-12-22] MEDS: NICOTINE 21 MG/24 HOUR PATCH TD SCH (09:48)
[2020-12-22] MEDS: LORazepam 2 MG TABLET PO PRN ×3 (09:59→19:10)
[2020-12-22 10:14] VITALS: BP 142/75
[2020-12-22 16:44] VITALS: BP 140/78
[2020-12-22] MEDS: MELATONIN 5 MG TABLET PO SCH (20:17)
[2020-12-22] MEDS ORDERED: QUEtiapine FUMARATE 200 MG TABLET PO SCH (21:00)
[2020-12-23 08:00] VITALS: BP 119/66
[2020-12-23] MEDS: LORazepam 2 MG TABLET PO PRN ×3 (08:04→16:48)
[2020-12-23] MEDS: THIAMINE 100 MG TABLET PO SCH ×2 (08:04→16:08)
[2020-12-23] MEDS: FOLIC ACID 1 MG TABLET PO SCH (08:04)
[2020-12-23] MEDS: OMEGA-3/DHA/EPA/FISH OIL 1,000 MG CAPSULE PO SCH (08:04)
[2020-12-23] MEDS: MULTIVITAMINS WITH MINERALS, THERAPEUTIC TABLET PO SCH (08:04)
[2020-12-23] MEDS: GABAPENTIN 300 MG CAPSULE PO SCH ×3 (08:04→16:08)
[2020-12-23] MEDS: NALTREXONE HCL 50 MG TABLET PO SCH (08:04)
[2020-12-23] MEDS: NICOTINE 21 MG/24 HOUR PATCH TD SCH (08:08)
[2020-12-23] MEDS ORDERED: PALIPERIDONE PALMITATE 156 MG/ML SYRINGE IM ONE (09:00)
[2020-12-23 16:18] VITALS: BP 140/90
[2020-12-23] MEDS: MELATONIN 5 MG TABLET PO SCH (20:14)
[2020-12-23] MEDS ORDERED: QUEtiapine FUMARATE 300 MG TABLET PO SCH (21:00)
[2020-12-24 08:00] VITALS: BP 141/73
[2020-12-24] MEDS ORDERED: GABAPENTIN 400 MG CAPSULE PO SCH (09:00)
[2020-12-24] MEDS: OMEGA-3/DHA/EPA/FISH OIL 1,000 MG CAPSULE PO SCH (10:05)
[2020-12-24] MEDS: THIAMINE 100 MG TABLET PO SCH ×2 (10:05→16:14)
[2020-12-24] MEDS: MULTIVITAMINS WITH MINERALS, THERAPEUTIC TABLET PO SCH (10:05)
[2020-12-24] MEDS: FOLIC ACID 1 MG TABLET PO SCH (10:05)
[2020-12-24] MEDS: NALTREXONE HCL 50 MG TABLET PO SCH (10:05)
[2020-12-24] MEDS: NICOTINE 21 MG/24 HOUR PATCH TD SCH (10:28)
[2020-12-24] MEDS: LORazepam 2 MG TABLET PO PRN ×3 (10:28→18:34)
[2020-12-24] MEDS: GABAPENTIN 400 MG CAPSULE PO SCH ×2 (13:27→16:14)
[2020-12-24] MEDS ORDERED: PALIPERIDONE PALMITATE 234 MG/1.5 ML SYRINGE IM ONE (14:45)
[2020-12-24 16:08] VITALS: BP_SYST 118; BP_SYST 119; BP_DIAS 75
[2020-12-24] MEDS: QUEtiapine FUMARATE 300 MG TABLET PO SCH (20:14)
[2020-12-24] MEDS: MELATONIN 5 MG TABLET PO SCH (20:14)
[2020-12-25 02:50] VITALS: BP 122/66
[2020-12-25] MEDS: LORazepam 2 MG TABLET PO PRN ×3 (02:50→16:00)
[2020-12-25] MEDS: ZOLPIDEM TARTRATE 10 MG TABLET PO PRN (02:50)
[2020-12-25 08:55] VITALS: BP 125/85
[2020-12-25] MEDS: OMEGA-3/DHA/EPA/FISH OIL 1,000 MG CAPSULE PO SCH (09:41)
[2020-12-25] MEDS: FOLIC ACID 1 MG TABLET PO SCH (09:42)
[2020-12-25] MEDS: GABAPENTIN 400 MG CAPSULE PO SCH ×3 (09:42→16:00)
[2020-12-25] MEDS: NICOTINE 21 MG/24 HOUR PATCH TD SCH (09:43)
[2020-12-25] MEDS: MULTIVITAMINS WITH MINERALS, THERAPEUTIC TABLET PO SCH (09:43)
[2020-12-25] MEDS: THIAMINE 100 MG TABLET PO SCH ×2 (09:43→16:00)
[2020-12-25] MEDS: NALTREXONE HCL 50 MG TABLET PO SCH (09:43)
[2020-12-25 10:20] VITALS: BP 120/78
[2020-12-25 11:38] VITALS: BP 118/80
[2020-12-25 14:51] LABS: COVID AG,FIA SOURCE NASOPHARYNGEAL
[2020-12-25 16:00] VITALS: BP_SYST 124; BP_SYST 127; BP_DIAS 86
[2020-12-25] MEDS: QUEtiapine FUMARATE 300 MG TABLET PO SCH (20:09)
[2020-12-25] MEDS: MELATONIN 5 MG TABLET PO SCH (20:09)
[2020-12-26 08:25] VITALS: BP 108/86
[2020-12-26] MEDS: MULTIVITAMINS WITH MINERALS, THERAPEUTIC TABLET PO SCH (09:50)
[2020-12-26] MEDS: FOLIC ACID 1 MG TABLET PO SCH (09:50)
[2020-12-26] MEDS: OMEGA-3/DHA/EPA/FISH OIL 1,000 MG CAPSULE PO SCH (09:51)
[2020-12-26] MEDS: GABAPENTIN 400 MG CAPSULE PO SCH ×3 (09:51→16:21)
[2020-12-26] MEDS: THIAMINE 100 MG TABLET PO SCH ×2 (09:51→16:21)
[2020-12-26] MEDS: NALTREXONE HCL 50 MG TABLET PO SCH (09:51)
[2020-12-26] MEDS: GABAPENTIN 100 MG CAPSULE PO SCH ×3 (09:51→16:21)
[2020-12-26] MEDS: LORazepam 2 MG TABLET PO PRN ×2 (11:12→16:01)
[2020-12-26] MEDS: NICOTINE 21 MG/24 HOUR PATCH TD SCH (11:13)
[2020-12-26 16:22] VITALS: BP 140/102
[2020-12-26] MEDS: QUEtiapine FUMARATE 300 MG TABLET PO SCH (20:23)
[2020-12-26] MEDS: MELATONIN 5 MG TABLET PO SCH (20:23)
[2020-12-27 01:25] VITALS: BP 134/80
[2020-12-27] MEDS: LORazepam 2 MG TABLET PO PRN ×3 (01:34→14:36)
[2020-12-27 09:38] VITALS: BP 125/91
[2020-12-27] MEDS: NICOTINE 21 MG/24 HOUR PATCH TD SCH (10:06)
[2020-12-27] MEDS: MULTIVITAMINS WITH MINERALS, THERAPEUTIC TABLET PO SCH (10:06)
[2020-12-27] MEDS: GABAPENTIN 400 MG CAPSULE PO SCH ×3 (10:06→16:26)
[2020-12-27] MEDS: FOLIC ACID 1 MG TABLET PO SCH (10:07)
[2020-12-27] MEDS: OMEGA-3/DHA/EPA/FISH OIL 1,000 MG CAPSULE PO SCH (10:07)
[2020-12-27] MEDS: NALTREXONE HCL 50 MG TABLET PO SCH (10:07)
[2020-12-27] MEDS: THIAMINE 100 MG TABLET PO SCH ×2 (10:07→16:26)
[2020-12-27 16:56] VITALS: BP 151/99
[2020-12-27] MEDS: QUEtiapine FUMARATE 300 MG TABLET PO SCH (21:00)
[2020-12-27] MEDS: MELATONIN 5 MG TABLET PO SCH (21:00)
[2020-12-28 08:22] VITALS: BP 135/93
[2020-12-28] MEDS ORDERED: PALIPERIDONE PALMITATE 156 MG/ML SYRINGE IM ONE (09:00)
[2020-12-28] MEDS: GABAPENTIN 400 MG CAPSULE PO SCH ×3 (09:39→16:13)
[2020-12-28] MEDS: NALTREXONE HCL 50 MG TABLET PO SCH (09:39)
[2020-12-28] MEDS: OMEGA-3/DHA/EPA/FISH OIL 1,000 MG CAPSULE PO SCH (09:39)
[2020-12-28] MEDS: MULTIVITAMINS WITH MINERALS, THERAPEUTIC TABLET PO SCH (09:39)
[2020-12-28] MEDS: THIAMINE 100 MG TABLET PO SCH ×2 (09:39→16:13)
[2020-12-28] MEDS: NICOTINE 21 MG/24 HOUR PATCH TD SCH (09:40)
[2020-12-28] MEDS: FOLIC ACID 1 MG TABLET PO SCH (09:40)
[2020-12-28] MEDS: LORazepam 2 MG TABLET PO PRN ×2 (11:14→16:13)
[2020-12-28 16:13] VITALS: BP 139/98
[2020-12-28 16:23] VITALS: BP 139/98
[2020-12-28] MEDS: MELATONIN 5 MG TABLET PO SCH (20:13)
[2020-12-28] MEDS: QUEtiapine FUMARATE 300 MG TABLET PO SCH (20:13)
[2020-12-29] MEDS: MULTIVITAMINS WITH MINERALS, THERAPEUTIC TABLET PO SCH (08:06)
[2020-12-29] MEDS: GABAPENTIN 400 MG CAPSULE PO SCH ×3 (08:06→16:04)
[2020-12-29] MEDS: OMEGA-3/DHA/EPA/FISH OIL 1,000 MG CAPSULE PO SCH (08:07)
[2020-12-29] MEDS: THIAMINE 100 MG TABLET PO SCH (08:07)
[2020-12-29] MEDS: NALTREXONE HCL 50 MG TABLET PO SCH (08:07)
[2020-12-29] MEDS: FOLIC ACID 1 MG TABLET PO SCH (08:07)
[2020-12-29] MEDS: LORazepam 2 MG TABLET PO PRN ×2 (08:07→12:45)
[2020-12-29] MEDS: NICOTINE 21 MG/24 HOUR PATCH TD SCH (08:31)
[2020-12-29 09:58] VITALS: BP 136/93
[2020-12-29 12:15] VITALS: BP 112/70
[2020-12-29 13:15] VITALS: BP 120/78
[2020-12-29] MEDS ORDERED: LORazepam 1 MG TABLET PO PRN (15:30)
[2020-12-29 16:04] VITALS: BP 130/83
[2020-12-29 16:14] VITALS: BP 130/83
[2020-12-29] MEDS: QUEtiapine FUMARATE 300 MG TABLET PO SCH (20:19)
[2020-12-29] MEDS: MELATONIN 5 MG TABLET PO SCH (20:20)
[2020-12-30] MEDS: NALTREXONE HCL 50 MG TABLET PO SCH (08:00)
[2020-12-30] MEDS: MULTIVITAMINS WITH MINERALS, THERAPEUTIC TABLET PO SCH (08:00)
[2020-12-30] MEDS: OMEGA-3/DHA/EPA/FISH OIL 1,000 MG CAPSULE PO SCH (08:00)
[2020-12-30] MEDS: GABAPENTIN 400 MG CAPSULE PO SCH ×3 (08:01→16:07)
[2020-12-30] MEDS: LORazepam 2 MG TABLET PO PRN ×3 (08:01→16:33)
[2020-12-30] MEDS: NICOTINE 21 MG/24 HOUR PATCH TD SCH (08:07)
[2020-12-30 09:11] VITALS: BP 106/83
[2020-12-30 16:22] VITALS: BP 97/62
[2020-12-30] MEDS: QUEtiapine FUMARATE 300 MG TABLET PO SCH (20:06)
[2020-12-30] MEDS: MELATONIN 5 MG TABLET PO SCH (20:06)
[2020-12-30] MEDS ORDERED: PREGABALIN 50 MG CAPSULE PO PRN (20:30)
[2020-12-31 09:30] VITALS: BP_SYST 100; BP_SYST 115; BP_DIAS 60; BP_DIAS 72
[2020-12-31] MEDS: OMEGA-3/DHA/EPA/FISH OIL 1,000 MG CAPSULE PO SCH (09:32)
[2020-12-31] MEDS: MULTIVITAMINS WITH MINERALS, THERAPEUTIC TABLET PO SCH (09:32)
[2020-12-31] MEDS: GABAPENTIN 400 MG CAPSULE PO SCH ×3 (09:33→17:31)
[2020-12-31] MEDS: NALTREXONE HCL 50 MG TABLET PO SCH (09:33)
[2020-12-31] MEDS: NICOTINE 21 MG/24 HOUR PATCH TD SCH (09:34)
[2020-12-31 16:26] VITALS: BP 114/77
[2020-12-31] MEDS: QUEtiapine FUMARATE 100 MG TABLET PO PRN (17:31)
[2020-12-31] MEDS: MELATONIN 5 MG TABLET PO SCH (21:02)
[2020-12-31] MEDS: QUEtiapine FUMARATE 300 MG TABLET PO SCH (21:02)
[2020-12-31] MEDS ORDERED: HydrOXYzine HCL 50 MG TABLET PO PRN (21:15)
[2020-12-31] MEDS: ZOLPIDEM TARTRATE 10 MG TABLET PO PRN (21:21)
[2021-01-01] MEDS: MULTIVITAMINS WITH MINERALS, THERAPEUTIC TABLET PO SCH (09:30)
[2021-01-01] MEDS: OMEGA-3/DHA/EPA/FISH OIL 1,000 MG CAPSULE PO SCH (09:30)
[2021-01-01] MEDS: GABAPENTIN 400 MG CAPSULE PO SCH ×3 (09:30→16:15)
[2021-01-01] MEDS: NALTREXONE HCL 50 MG TABLET PO SCH (09:30)
[2021-01-01] MEDS: NICOTINE 21 MG/24 HOUR PATCH TD SCH (09:31)
[2021-01-01 09:33] VITALS: BP 106/60
[2021-01-01 14:10] LABS: COVID AG,FIA SOURCE NASAL SWAB
[2021-01-01] MEDS: MAG HYDROX/AL HYDROX/SIMETH ES 30 ML SUSPENSION UDCUP PO PRN (15:44)
[2021-01-01 16:21] VITALS: BP 138/90
[2021-01-01] MEDS: MELATONIN 5 MG TABLET PO SCH (20:09)
[2021-01-01] MEDS: QUEtiapine FUMARATE 300 MG TABLET PO SCH (20:09)
[2021-01-02] MEDS: MULTIVITAMINS WITH MINERALS, THERAPEUTIC TABLET PO SCH (08:35)
[2021-01-02] MEDS: GABAPENTIN 400 MG CAPSULE PO SCH ×3 (08:35→16:04)
[2021-01-02] MEDS: OMEGA-3/DHA/EPA/FISH OIL 1,000 MG CAPSULE PO SCH (08:35)
[2021-01-02] MEDS: NICOTINE 21 MG/24 HOUR PATCH TD SCH (08:36)
[2021-01-02] MEDS: NALTREXONE HCL 50 MG TABLET PO SCH (08:41)
[2021-01-02 09:00] VITALS: BP 105/86
[2021-01-02 17:13] VITALS: BP 122/93
[2021-01-02] MEDS: MAG HYDROX/AL HYDROX/SIMETH ES 30 ML SUSPENSION UDCUP PO PRN (19:02)
[2021-01-02] MEDS: MELATONIN 5 MG TABLET PO SCH (20:08)
[2021-01-02] MEDS: QUEtiapine FUMARATE 300 MG TABLET PO SCH (20:09)
[2021-01-02] MEDS: ZOLPIDEM TARTRATE 10 MG TABLET PO PRN (20:46)
[2021-01-03 08:16] VITALS: BP 112/83
[2021-01-03] MEDS: OMEGA-3/DHA/EPA/FISH OIL 1,000 MG CAPSULE PO SCH (08:51)
[2021-01-03] MEDS: MULTIVITAMINS WITH MINERALS, THERAPEUTIC TABLET PO SCH (08:51)
[2021-01-03] MEDS: NALTREXONE HCL 50 MG TABLET PO SCH (08:51)
[2021-01-03] MEDS: NICOTINE 21 MG/24 HOUR PATCH TD SCH (08:52)
[2021-01-03] MEDS: GABAPENTIN 400 MG CAPSULE PO SCH ×2 (08:52→12:37)
[2021-01-03] MEDS: MAG HYDROX/AL HYDROX/SIMETH ES 30 ML SUSPENSION UDCUP PO PRN (09:30)
[2021-01-03] MEDS ORDERED: MELA5TAB40 PO (11:17)
[2021-01-03] MEDS ORDERED: OMEG-135 PO (11:17)
[2021-01-03] MEDS ORDERED: MULT-1239 PO (11:17)
[2021-01-03] MEDS ORDERED: GABA-1201 PO (11:17)
== END 2021-01-03 13:30 | disposition home or self-care (01) | DRG 750 ==
LOC: EMS 17:34 → 3EI 19:22
PROVIDERS: ADMIT Psychiatry & Neurology Psychiatry; ATTEND Psychiatry & Neurology Psychiatry
DX: F25.0 Schizoaffective disorder, bipolar type (principal); R45.851 Suicidal ideations; R45.850 Homicidal ideations; Z91.14 Patient's other noncompliance with medication regimen; F41.9 Anxiety disorder, unspecified; F25.1 Schizoaffective disorder, depressive type; I10 Essential (primary) hypertension; J43.9 Emphysema, unspecified; F17.200 Nicotine dependence, unspecified, uncomplicated; Z20.822 Contact with and (suspected) exposure to COVID-19; G89.29 Other chronic pain; Z79.899 Other long term (current) drug therapy
CPT/HCPCS: 80053; 80061; 83036; 85025; 99285; G0480; Q9967

== ENCOUNTER 2021-01-06 01:26 | Inpatient (IN) | payer MEDICAID ==
[~2021-01-06] VITALS: Ht 190.5 cm; Wt 88.4 kg
[~2021-01-06 01:26] MED LIST changes: -FLUO20CA36 PO; -GABA-1181 PO; +GABA-1201 PO; +MULT-1239 PO; -QUET200T PO
[2021-01-06] MEDS ORDERED: ZOLPIDEM TARTRATE 10 MG TABLET PO PRN (02:15)
[2021-01-06 02:27] LABS: BASOPHILS % (AUTO) 0.4 % (0.0-2.0); EOSINOPHILS % (AUTO) 1.7 % (1.0-6.0); HEMATOCRIT 45.2 % (41-53); HEMOGLOBIN 15.1 g/dL (13.5-17.5); LYMPHOCYTES # (AUTO) 1.8 K/uL (1.0-4.8); LYMPHOCYTES % (AUTO) 23.2 % (22.0-44.0); MEAN CORPUSCULAR HGB CONC 33.4 G/dL (31.0-37.0); MEAN CORPUSCULAR VOLUME 96 fL (80-100); MONOCYTES # (AUTO) 0.8 K/uL (0.1-1.0); MONOCYTES % (AUTO) 10.4 % (2.0-9.0); NEUTROPHILS % (AUTO) 64.3 % (40.0-70.0); PLATELET COUNT (AUTO) 250 K/uL (150-450); RED BLOOD CELL COUNT(AUTO) 4.73 MIL/uL (4.50-5.90); RED CELL DISTRIBUTION WIDTH 15.2 % (11.5-14.5)
[2021-01-06 02:36] LABS: ANION GAP 1 mmol/L (8-16); CALCIUM, TOTAL 10.6 mg/dL (8.8-10.5); CARBON DIOXIDE 32 mmol/L (22-29); CHLORIDE 102 mmol/L (98-107); CREATININE 0.89 mg/dL (0.60-1.30); GLOMERULAR FILTR. RATE CALC > 60 mL/min (>60); GLUCOSE,RANDOM 105 mg/dL (70-110); POTASSIUM 4.4 mmol/L (3.5-5.1); SODIUM SERUM 135 mmol/L (136-145); UREA NITROGEN, BLOOD 12 mg/dL (7-18)
[2021-01-06 02:42] LABS: ALANINE AMINOTRANSFERASE 37 U/L (12-78); ALBUMIN 3.8 g/dL (3.4-5.0); ALKALINE PHOSPHATASE 103 U/L (46-116); ASPARTATE AMINOTRANSFERASE 23 U/L (15-37); BILIRUBIN,TOTAL 0.3 mg/dL (0.1-1.0); TOTAL PROTEIN, SERUM 7.8 g/dL (6.4-8.2)
[2021-01-06 03:06] LABS: COVID AG,FIA SOURCE NASOPHARYNGEAL
[2021-01-06] MEDS: LORazepam 2 MG TABLET PO PRN ×3 (04:10→17:39)
[2021-01-06 04:37] VITALS: BP 159/90
[2021-01-06] MEDS ORDERED: PNEUMOCOCCAL VACCINE POLYVALENT 0.5 ML VIAL [PPSV23] IM. ONE (05:15)
[2021-01-06 09:00] VITALS: BP 100/72
[2021-01-06 12:40] VITALS: BP 110/68
[2021-01-06 15:07] LABS: APPEARANCE,URINE CLOUDY (CLEAR); BILIRUBIN,URINE NEGATIVE (NEGATIVE); GLUCOSE, URINE (UA) NEGATIVE (NEGATIVE); KETONES,URINE NEGATIVE (NEGATIVE); LEUKOCYTE ESTERASE ,URINE NEGATIVE (NEGATIVE); NITRATE,URINE NEGATIVE (NEGATIVE); OCCULT BLOOD,URINE NEGATIVE (NEGATIVE); PROTEIN,URINE NEGATIVE (NEGATIVE); UROBILINOGEN,URINE 0.2 mg/dL (<=1.0)
[2021-01-06 15:14] LABS: AMPHET/METH SCREEN,URINE NEGATIVE (NEGATIVE); BARBITURATE SCREEN, URINE NEGATIVE (NEGATIVE); BENZODIAZEPINES SCREEN,URINE NEGATIVE (NEGATIVE); CANNABINOID SCREEN,URINE NEGATIVE (NEGATIVE); COCAINE SCREEN,URINE NEGATIVE (NEGATIVE); METHADONE SCREEN, URINE NEGATIVE (NEGATIVE); OPIATE SCREEN,URINE NEGATIVE (NEGATIVE)
[2021-01-06 15:15] LABS: PHENCYCLIDINE SCREEN,URINE NEGATIVE (NEGATIVE)
[2021-01-06] MEDS ORDERED: PROMETHAZINE HCL 25 MG TABLET PO PRN (15:45)
[2021-01-06] MEDS ORDERED: LOPERAMIDE HCL 2 MG CAPSULE PO PRN (15:45)
[2021-01-06] MEDS ORDERED: GuaiFENesin/D-METHORPHAN [SUGAR-FREE] 200-20MG/10 ML SYRUP UDCUP PO PRN (15:45)
[2021-01-06] MEDS ORDERED: MAGNESIUM HYDROXIDE SUSPENSION 30 ML UDCUP PO PRN (15:45)
[2021-01-06 16:14] VITALS: BP 100/68
[2021-01-06] MEDS: THIAMINE 100 MG TABLET PO SCH (17:35)
[2021-01-06] MEDS: GABAPENTIN 400 MG CAPSULE PO SCH (17:35)
[2021-01-06] MEDS: OLANZapine 5 MG RAPDIS TABLET PO PRN (17:36)
[2021-01-06] MEDS ORDERED: GABAPENTIN 300 MG CAPSULE PO PRN (19:15)
[2021-01-06] MEDS: QUEtiapine FUMARATE 200 MG TABLET PO SCH (20:51)
[2021-01-06] MEDS: MELATONIN 5 MG TABLET PO SCH (20:51)
[2021-01-07 08:00] VITALS: BP 108/83
[2021-01-07 08:53] LABS: CHOL/HDL RATIO 3.6 (4.2-7.3)
[2021-01-07] MEDS: FOLIC ACID 1 MG TABLET PO SCH (08:55)
[2021-01-07] MEDS: THIAMINE 100 MG TABLET PO SCH ×2 (08:55→17:45)
[2021-01-07] MEDS: OMEGA-3/DHA/EPA/FISH OIL 1,000 MG CAPSULE PO SCH (08:55)
[2021-01-07] MEDS: GABAPENTIN 400 MG CAPSULE PO SCH ×4 (08:55→17:00)
[2021-01-07] MEDS: MULTIVITAMINS WITH MINERALS, THERAPEUTIC TABLET PO SCH (08:55)
[2021-01-07] MEDS: NALTREXONE HCL 50 MG TABLET PO SCH (08:57)
[2021-01-07 16:00] VITALS: BP 132/90
[2021-01-07] MEDS ORDERED: NICOTINE 21 MG/24 HOUR PATCH TD ONE (17:00)
[2021-01-07] MEDS: HydrOXYzine PAMOATE 50 MG CAPSULE PO PRN (17:45)
[2021-01-07] MEDS: MELATONIN 5 MG TABLET PO SCH (21:46)
[2021-01-07] MEDS: QUEtiapine FUMARATE 200 MG TABLET PO SCH (21:46)
[2021-01-08 06:38] LABS: BASOPHILS % (AUTO) 0.8 % (0.0-2.0); EOSINOPHILS % (AUTO) 2.8 % (1.0-6.0); HEMATOCRIT 43.5 % (41-53); HEMOGLOBIN 14.1 g/dL (13.5-17.5); LYMPHOCYTES # (AUTO) 1.6 K/uL (1.0-4.8); LYMPHOCYTES % (AUTO) 26.4 % (22.0-44.0); MEAN CORPUSCULAR HEMOGLOBIN 31.6 pg (26.0-34.0); MEAN CORPUSCULAR HGB CONC 32.4 G/dL (31.0-37.0); MEAN CORPUSCULAR VOLUME 98 fL (80-100); MONOCYTES # (AUTO) 0.8 K/uL (0.1-1.0); MONOCYTES % (AUTO) 12.8 % (2.0-9.0); NEUTROPHILS # (AUTO) 3.5 K/uL (1.8-7.7); NEUTROPHILS % (AUTO) 57.2 % (40.0-70.0); PLATELET COUNT (AUTO) 225 K/uL (150-450); RED BLOOD CELL COUNT(AUTO) 4.46 MIL/uL (4.50-5.90); RED CELL DISTRIBUTION WIDTH 14.8 % (11.5-14.5)
[2021-01-08 08:15] VITALS: BP 125/90
[2021-01-08] MEDS: FOLIC ACID 1 MG TABLET PO SCH (08:24)
[2021-01-08] MEDS: MULTIVITAMINS WITH MINERALS, THERAPEUTIC TABLET PO SCH (08:24)
[2021-01-08] MEDS: OMEGA-3/DHA/EPA/FISH OIL 1,000 MG CAPSULE PO SCH (08:24)
[2021-01-08] MEDS: THIAMINE 100 MG TABLET PO SCH ×2 (08:24→16:16)
[2021-01-08] MEDS: NALTREXONE HCL 50 MG TABLET PO SCH (08:24)
[2021-01-08] MEDS: NICOTINE 21 MG/24 HOUR PATCH TD SCH (08:28)
[2021-01-08] MEDS: GABAPENTIN 400 MG CAPSULE PO SCH ×2 (08:29→13:00)
[2021-01-08] MEDS ORDERED: CloZAPine 25 MG TABLET PO SCH (09:00)
[2021-01-08] MEDS ORDERED: PREGABALIN 50 MG CAPSULE PO PRN (15:15)
[2021-01-08 16:11] VITALS: BP 112/81
[2021-01-08 17:54] VITALS: BP 112/81
[2021-01-08] MEDS: ACETAMINOPHEN 325 MG TABLET PO PRN (17:54)
[2021-01-08] MEDS: ZOLPIDEM TARTRATE 10 MG TABLET PO SCH (20:09)
[2021-01-08] MEDS: QUEtiapine FUMARATE 200 MG TABLET PO SCH (20:10)
[2021-01-08] MEDS: MELATONIN 5 MG TABLET PO SCH (20:10)
[2021-01-08] MEDS ORDERED: MIRTAZAPINE 15 MG TABLET PO SCH (21:00)
[2021-01-08] MEDS: MAG HYDROX/AL HYDROX/SIMETH ES 30 ML SUSPENSION UDCUP PO PRN (23:46)
[2021-01-09 06:01] VITALS: BP 110/74
[2021-01-09 08:00] VITALS: BP 143/89
[2021-01-09] MEDS: THIAMINE 100 MG TABLET PO SCH ×2 (08:24→16:22)
[2021-01-09] MEDS: MULTIVITAMINS WITH MINERALS, THERAPEUTIC TABLET PO SCH (08:24)
[2021-01-09] MEDS: NICOTINE 21 MG/24 HOUR PATCH TD SCH (08:24)
[2021-01-09] MEDS: FOLIC ACID 1 MG TABLET PO SCH (08:26)
[2021-01-09] MEDS: OMEGA-3/DHA/EPA/FISH OIL 1,000 MG CAPSULE PO SCH (08:26)
[2021-01-09] MEDS: NALTREXONE HCL 50 MG TABLET PO SCH (08:26)
[2021-01-09] MEDS ORDERED: CloZAPine 25 MG TABLET PO SCH ×2 (09:00→21:00)
[2021-01-09] MEDS: MAG HYDROX/AL HYDROX/SIMETH ES 30 ML SUSPENSION UDCUP PO PRN (10:56)
[2021-01-09] MEDS: HydrOXYzine PAMOATE 50 MG CAPSULE PO PRN (11:56)
[2021-01-09 16:00] VITALS: BP 143/100
[2021-01-09] MEDS: ZOLPIDEM TARTRATE 10 MG TABLET PO SCH (20:04)
[2021-01-09] MEDS: QUEtiapine FUMARATE 200 MG TABLET PO SCH (20:04)
[2021-01-09] MEDS: MELATONIN 5 MG TABLET PO SCH (20:04)
[2021-01-09] MEDS: MIRTAZAPINE 15 MG TABLET PO SCH (20:05)
[2021-01-10] MEDS: MULTIVITAMINS WITH MINERALS, THERAPEUTIC TABLET PO SCH (08:40)
[2021-01-10] MEDS: NICOTINE 21 MG/24 HOUR PATCH TD SCH (08:40)
[2021-01-10] MEDS: FOLIC ACID 1 MG TABLET PO SCH (08:40)
[2021-01-10] MEDS: NALTREXONE HCL 50 MG TABLET PO SCH (08:41)
[2021-01-10] MEDS: OMEGA-3/DHA/EPA/FISH OIL 1,000 MG CAPSULE PO SCH (08:41)
[2021-01-10] MEDS: THIAMINE 100 MG TABLET PO SCH ×2 (08:41→16:18)
[2021-01-10] MEDS ORDERED: CloZAPine 25 MG TABLET PO SCH ×2 (09:00→21:00)
[2021-01-10 10:01] VITALS: BP 125/82
[2021-01-10 16:33] VITALS: BP 127/91
[2021-01-10] MEDS: MELATONIN 5 MG TABLET PO SCH (20:02)
[2021-01-10] MEDS: QUEtiapine FUMARATE 200 MG TABLET PO SCH (20:02)
[2021-01-10] MEDS: ZOLPIDEM TARTRATE 10 MG TABLET PO SCH (20:03)
[2021-01-10] MEDS: MIRTAZAPINE 15 MG TABLET PO SCH (20:03)
[2021-01-11] MEDS: OMEGA-3/DHA/EPA/FISH OIL 1,000 MG CAPSULE PO SCH (08:26)
[2021-01-11] MEDS: NICOTINE 21 MG/24 HOUR PATCH TD SCH (08:26)
[2021-01-11] MEDS: THIAMINE 100 MG TABLET PO SCH ×2 (08:27→16:21)
[2021-01-11] MEDS: CloZAPine 25 MG TABLET PO SCH ×2 (08:27→20:11)
[2021-01-11] MEDS: NALTREXONE HCL 50 MG TABLET PO SCH (08:27)
[2021-01-11] MEDS: MULTIVITAMINS WITH MINERALS, THERAPEUTIC TABLET PO SCH (08:27)
[2021-01-11] MEDS: FOLIC ACID 1 MG TABLET PO SCH (08:28)
[2021-01-11 08:46] VITALS: BP 140/90
[2021-01-11 16:21] VITALS: BP 145/88
[2021-01-11] MEDS: ACETAMINOPHEN 325 MG TABLET PO PRN (16:21)
[2021-01-11 17:04] VITALS: BP 145/88
[2021-01-11] MEDS: MAG HYDROX/AL HYDROX/SIMETH ES 30 ML SUSPENSION UDCUP PO PRN (19:54)
[2021-01-11] MEDS: ZOLPIDEM TARTRATE 10 MG TABLET PO SCH (20:12)
[2021-01-11] MEDS: MELATONIN 5 MG TABLET PO SCH (20:12)
[2021-01-11] MEDS: MIRTAZAPINE 15 MG TABLET PO SCH (20:12)
[2021-01-11] MEDS: QUEtiapine FUMARATE 200 MG TABLET PO SCH (20:12)
[2021-01-12] MEDS: FOLIC ACID 1 MG TABLET PO SCH (08:21)
[2021-01-12] MEDS: THIAMINE 100 MG TABLET PO SCH ×2 (08:21→16:27)
[2021-01-12] MEDS: NALTREXONE HCL 50 MG TABLET PO SCH (08:21)
[2021-01-12] MEDS: OMEGA-3/DHA/EPA/FISH OIL 1,000 MG CAPSULE PO SCH (08:21)
[2021-01-12] MEDS: MULTIVITAMINS WITH MINERALS, THERAPEUTIC TABLET PO SCH (08:21)
[2021-01-12] MEDS: CloZAPine 25 MG TABLET PO SCH ×2 (08:21→20:28)
[2021-01-12] MEDS: NICOTINE 21 MG/24 HOUR PATCH TD SCH (08:22)
[2021-01-12 10:52] VITALS: BP 130/89
[2021-01-12 11:40] LABS: COVID AG,FIA SOURCE NASOPHARYNGEAL
[2021-01-12 16:00] VITALS: BP 113/76
[2021-01-12] MEDS: MAG HYDROX/AL HYDROX/SIMETH ES 30 ML SUSPENSION UDCUP PO PRN (19:55)
[2021-01-12] MEDS: ZOLPIDEM TARTRATE 10 MG TABLET PO SCH (20:28)
[2021-01-12] MEDS: MELATONIN 5 MG TABLET PO SCH (20:28)
[2021-01-12] MEDS: QUEtiapine FUMARATE 200 MG TABLET PO SCH (20:29)
[2021-01-12] MEDS: MIRTAZAPINE 15 MG TABLET PO SCH (20:29)
[2021-01-13 08:01] VITALS: BP 112/77
[2021-01-13] MEDS: THIAMINE 100 MG TABLET PO SCH ×2 (08:03→17:47)
[2021-01-13] MEDS: FOLIC ACID 1 MG TABLET PO SCH (08:03)
[2021-01-13] MEDS: MULTIVITAMINS WITH MINERALS, THERAPEUTIC TABLET PO SCH (08:03)
[2021-01-13] MEDS: NALTREXONE HCL 50 MG TABLET PO SCH (08:03)
[2021-01-13] MEDS: OMEGA-3/DHA/EPA/FISH OIL 1,000 MG CAPSULE PO SCH (08:04)
[2021-01-13] MEDS: NICOTINE 21 MG/24 HOUR PATCH TD SCH (08:04)
[2021-01-13] MEDS ORDERED: CloZAPine 25 MG TABLET PO SCH (09:00)
[2021-01-13 16:16] VITALS: BP 134/99
[2021-01-13 16:17] VITALS: BP 134/99
[2021-01-13] MEDS: OLANZapine 5 MG RAPDIS TABLET PO PRN (17:48)
[2021-01-13] MEDS ORDERED: CloZAPine 100 MG TABLET PO SCH (21:00)
[2021-01-13] MEDS ORDERED: MIRTAZAPINE 30 MG TABLET PO SCH (21:00)
[2021-01-13] MEDS: ZOLPIDEM TARTRATE 10 MG TABLET PO SCH (21:26)
[2021-01-13] MEDS: QUEtiapine FUMARATE 200 MG TABLET PO SCH (21:27)
[2021-01-13] MEDS: MELATONIN 5 MG TABLET PO SCH (21:27)
[2021-01-14 08:00] VITALS: BP 160/104
[2021-01-14] MEDS: NALTREXONE HCL 50 MG TABLET PO SCH (08:23)
[2021-01-14] MEDS: NICOTINE 21 MG/24 HOUR PATCH TD SCH (08:23)
[2021-01-14] MEDS: THIAMINE 100 MG TABLET PO SCH ×2 (08:24→16:23)
[2021-01-14] MEDS: MULTIVITAMINS WITH MINERALS, THERAPEUTIC TABLET PO SCH (08:24)
[2021-01-14] MEDS: OMEGA-3/DHA/EPA/FISH OIL 1,000 MG CAPSULE PO SCH (08:24)
[2021-01-14] MEDS: FOLIC ACID 1 MG TABLET PO SCH (08:25)
[2021-01-14] MEDS ORDERED: CloZAPine 25 MG TABLET PO SCH (09:00)
[2021-01-14] MEDS: OLANZapine 5 MG RAPDIS TABLET PO PRN (16:23)
[2021-01-14 18:06] VITALS: BP 140/77
[2021-01-14] MEDS: MELATONIN 5 MG TABLET PO SCH (20:07)
[2021-01-14] MEDS: QUEtiapine FUMARATE 200 MG TABLET PO SCH (20:07)
[2021-01-14] MEDS: ZOLPIDEM TARTRATE 10 MG TABLET PO SCH (20:42)
[2021-01-14] MEDS ORDERED: CloZAPine 100 MG TABLET PO SCH (21:00)
[2021-01-15 08:00] VITALS: BP 115/87
[2021-01-15] MEDS ORDERED: CloZAPine 25 MG TABLET PO SCH (09:00)
[2021-01-15] MEDS: NICOTINE 21 MG/24 HOUR PATCH TD SCH (09:27)
[2021-01-15] MEDS: OMEGA-3/DHA/EPA/FISH OIL 1,000 MG CAPSULE PO SCH (09:27)
[2021-01-15] MEDS: MULTIVITAMINS WITH MINERALS, THERAPEUTIC TABLET PO SCH (09:28)
[2021-01-15] MEDS: FOLIC ACID 1 MG TABLET PO SCH (09:28)
[2021-01-15] MEDS: THIAMINE 100 MG TABLET PO SCH ×2 (09:28→16:20)
[2021-01-15] MEDS: NALTREXONE HCL 50 MG TABLET PO SCH (09:28)
[2021-01-15 16:44] VITALS: BP 117/85
[2021-01-15 16:45] VITALS: BP 117/85
[2021-01-15] MEDS: MELATONIN 5 MG TABLET PO SCH (20:17)
[2021-01-15] MEDS: QUEtiapine FUMARATE 200 MG TABLET PO SCH (20:17)
[2021-01-15] MEDS: ZOLPIDEM TARTRATE 10 MG TABLET PO SCH (20:17)
[2021-01-15] MEDS ORDERED: CloZAPine 100 MG TABLET PO SCH (21:00)
[2021-01-16 07:29] LABS: BASOPHILS % (AUTO) 0.6 % (0.0-2.0); EOSINOPHILS % (AUTO) 2.7 % (1.0-6.0); HEMATOCRIT 46.6 % (41-53); HEMOGLOBIN 15.5 g/dL (13.5-17.5); LYMPHOCYTES # (AUTO) 1.4 K/uL (1.0-4.8); LYMPHOCYTES % (AUTO) 27.7 % (22.0-44.0); MEAN CORPUSCULAR HEMOGLOBIN 31.8 pg (26.0-34.0); MEAN CORPUSCULAR HGB CONC 33.2 G/dL (31.0-37.0); MEAN CORPUSCULAR VOLUME 96 fL (80-100); MONOCYTES # (AUTO) 0.6 K/uL (0.1-1.0); MONOCYTES % (AUTO) 11.2 % (2.0-9.0); NEUTROPHILS % (AUTO) 57.8 % (40.0-70.0); PLATELET COUNT (AUTO) 258 K/uL (150-450); RED BLOOD CELL COUNT(AUTO) 4.86 MIL/uL (4.50-5.90); RED CELL DISTRIBUTION WIDTH 15.1 % (11.5-14.5)
[2021-01-16] MEDS: OMEGA-3/DHA/EPA/FISH OIL 1,000 MG CAPSULE PO SCH (08:39)
[2021-01-16] MEDS: MULTIVITAMINS WITH MINERALS, THERAPEUTIC TABLET PO SCH (08:39)
[2021-01-16] MEDS: THIAMINE 100 MG TABLET PO SCH (08:39)
[2021-01-16] MEDS: NALTREXONE HCL 50 MG TABLET PO SCH (08:39)
[2021-01-16] MEDS: FOLIC ACID 1 MG TABLET PO SCH (08:39)
[2021-01-16] MEDS: NICOTINE 21 MG/24 HOUR PATCH TD SCH (08:40)
[2021-01-16 10:34] VITALS: BP 119/66
[2021-01-16] MEDS: CloZAPine 100 MG TABLET PO SCH ×2 (12:14→20:00)
[2021-01-16 16:00] VITALS: BP 128/82
[2021-01-16] MEDS: ZOLPIDEM TARTRATE 10 MG TABLET PO SCH (20:00)
[2021-01-16] MEDS: MELATONIN 5 MG TABLET PO SCH (20:00)
[2021-01-16] MEDS: QUEtiapine FUMARATE 200 MG TABLET PO SCH (20:00)
[2021-01-17] MEDS: NALTREXONE HCL 50 MG TABLET PO SCH (08:54)
[2021-01-17] MEDS: MULTIVITAMINS WITH MINERALS, THERAPEUTIC TABLET PO SCH (08:54)
[2021-01-17] MEDS: OMEGA-3/DHA/EPA/FISH OIL 1,000 MG CAPSULE PO SCH (08:54)
[2021-01-17] MEDS: CloZAPine 100 MG TABLET PO SCH ×2 (08:54→21:44)
[2021-01-17] MEDS: NICOTINE 21 MG/24 HOUR PATCH TD SCH (08:57)
[2021-01-17 09:05] VITALS: BP 138/86
[2021-01-17 16:26] VITALS: BP 140/90
[2021-01-17] MEDS: MELATONIN 5 MG TABLET PO SCH (21:43)
[2021-01-17] MEDS: ZOLPIDEM TARTRATE 10 MG TABLET PO SCH (21:44)
[2021-01-17] MEDS: QUEtiapine FUMARATE 200 MG TABLET PO SCH (21:44)
[2021-01-18] MEDS ORDERED: CloZAPine 25 MG TABLET PO SCH (09:00)
[2021-01-18] MEDS: OMEGA-3/DHA/EPA/FISH OIL 1,000 MG CAPSULE PO SCH (09:51)
[2021-01-18] MEDS: MULTIVITAMINS WITH MINERALS, THERAPEUTIC TABLET PO SCH (09:51)
[2021-01-18] MEDS: NALTREXONE HCL 50 MG TABLET PO SCH (09:51)
[2021-01-18] MEDS: NICOTINE 21 MG/24 HOUR PATCH TD SCH (09:51)
[2021-01-18 16:28] VITALS: BP 122/91
[2021-01-18] MEDS ORDERED: CloZAPine 100 MG TABLET PO SCH (21:00)
[2021-01-18] MEDS: QUEtiapine FUMARATE 200 MG TABLET PO SCH (21:12)
[2021-01-18] MEDS: MELATONIN 5 MG TABLET PO SCH (21:12)
[2021-01-18] MEDS: ZOLPIDEM TARTRATE 10 MG TABLET PO SCH (21:13)
[2021-01-19] MEDS: OMEGA-3/DHA/EPA/FISH OIL 1,000 MG CAPSULE PO SCH (08:42)
[2021-01-19] MEDS: MULTIVITAMINS WITH MINERALS, THERAPEUTIC TABLET PO SCH (08:43)
[2021-01-19] MEDS: NALTREXONE HCL 50 MG TABLET PO SCH (08:43)
[2021-01-19] MEDS: NICOTINE 21 MG/24 HOUR PATCH TD SCH (08:44)
[2021-01-19] MEDS ORDERED: CloZAPine 25 MG TABLET PO SCH (09:00)
[2021-01-19 09:30] VITALS: BP 147/101
[2021-01-19 15:05] LABS: COVID AG,FIA SOURCE NASOPHARYNGEAL
[2021-01-19 16:26] VITALS: BP 113/85
[2021-01-19] MEDS ORDERED: CloZAPine 100 MG TABLET PO SCH (21:00)
[2021-01-19] MEDS: QUEtiapine FUMARATE 200 MG TABLET PO SCH (21:17)
[2021-01-19] MEDS: ZOLPIDEM TARTRATE 10 MG TABLET PO SCH (21:18)
[2021-01-19] MEDS: MELATONIN 5 MG TABLET PO SCH (21:18)
[2021-01-20] MEDS: NALTREXONE HCL 50 MG TABLET PO SCH (08:33)
[2021-01-20] MEDS: OMEGA-3/DHA/EPA/FISH OIL 1,000 MG CAPSULE PO SCH (08:33)
[2021-01-20] MEDS: CloZAPine 100 MG TABLET PO SCH (08:33)
[2021-01-20] MEDS: MULTIVITAMINS WITH MINERALS, THERAPEUTIC TABLET PO SCH (08:33)
[2021-01-20] MEDS: NICOTINE 21 MG/24 HOUR PATCH TD SCH (08:34)
[2021-01-20 13:43] VITALS: BP 133/91
[2021-01-20 16:08] VITALS: BP 120/88
[2021-01-20] MEDS: ZOLPIDEM TARTRATE 10 MG TABLET PO SCH (20:00)
[2021-01-20] MEDS: MELATONIN 5 MG TABLET PO SCH (20:01)
[2021-01-20] MEDS: QUEtiapine FUMARATE 200 MG TABLET PO SCH (20:01)
[2021-01-20] MEDS ORDERED: CloZAPine 100 MG TABLET PO SCH (21:00)
[2021-01-21] MEDS: MULTIVITAMINS WITH MINERALS, THERAPEUTIC TABLET PO SCH (09:09)
[2021-01-21] MEDS: OMEGA-3/DHA/EPA/FISH OIL 1,000 MG CAPSULE PO SCH (09:09)
[2021-01-21] MEDS: CloZAPine 100 MG TABLET PO SCH ×2 (09:09→20:43)
[2021-01-21] MEDS: NALTREXONE HCL 50 MG TABLET PO SCH (09:09)
[2021-01-21] MEDS: NICOTINE 21 MG/24 HOUR PATCH TD SCH (09:10)
[2021-01-21 10:22] VITALS: BP 110/79
[2021-01-21 16:00] VITALS: BP 128/86
[2021-01-21 16:59] VITALS: BP 128/86
[2021-01-21] MEDS: ZOLPIDEM TARTRATE 10 MG TABLET PO SCH (20:43)
[2021-01-21] MEDS: QUEtiapine FUMARATE 200 MG TABLET PO SCH (20:43)
[2021-01-21] MEDS: MELATONIN 5 MG TABLET PO SCH (20:43)
[2021-01-22] MEDS: CloZAPine 100 MG TABLET PO SCH ×2 (08:34→20:55)
[2021-01-22] MEDS: NALTREXONE HCL 50 MG TABLET PO SCH (08:34)
[2021-01-22] MEDS: OMEGA-3/DHA/EPA/FISH OIL 1,000 MG CAPSULE PO SCH (08:34)
[2021-01-22] MEDS: NICOTINE 21 MG/24 HOUR PATCH TD SCH (08:34)
[2021-01-22] MEDS: MULTIVITAMINS WITH MINERALS, THERAPEUTIC TABLET PO SCH (08:34)
[2021-01-22 08:56] LABS: BASOPHILS % (AUTO) 0.4 % (0.0-2.0); EOSINOPHILS % (AUTO) 1.9 % (1.0-6.0); HEMOGLOBIN 15.7 g/dL (13.5-17.5); LYMPHOCYTES # (AUTO) 0.9 K/uL (1.0-4.8); LYMPHOCYTES % (AUTO) 17.5 % (22.0-44.0); MEAN CORPUSCULAR HEMOGLOBIN 32.1 pg (26.0-34.0); MEAN CORPUSCULAR HGB CONC 33.5 G/dL (31.0-37.0); MEAN CORPUSCULAR VOLUME 96 fL (80-100); MONOCYTES # (AUTO) 0.4 K/uL (0.1-1.0); MONOCYTES % (AUTO) 7.3 % (2.0-9.0); NEUTROPHILS # (AUTO) 3.6 K/uL (1.8-7.7); NEUTROPHILS % (AUTO) 72.9 % (40.0-70.0); PLATELET COUNT (AUTO) 204 K/uL (150-450); RED BLOOD CELL COUNT(AUTO) 4.91 MIL/uL (4.50-5.90); RED CELL DISTRIBUTION WIDTH 14.5 % (11.5-14.5)
[2021-01-22 13:04] VITALS: BP 131/93
[2021-01-22 17:02] VITALS: BP 134/94
[2021-01-22] MEDS: MELATONIN 5 MG TABLET PO SCH (20:55)
[2021-01-22] MEDS: QUEtiapine FUMARATE 200 MG TABLET PO SCH (20:55)
[2021-01-22] MEDS: ZOLPIDEM TARTRATE 10 MG TABLET PO SCH (20:55)
[2021-01-23 08:00] VITALS: BP 115/84
[2021-01-23] MEDS: MULTIVITAMINS WITH MINERALS, THERAPEUTIC TABLET PO SCH (09:00)
[2021-01-23] MEDS: NALTREXONE HCL 50 MG TABLET PO SCH (09:00)
[2021-01-23] MEDS: CloZAPine 100 MG TABLET PO SCH ×2 (09:00→20:00)
[2021-01-23] MEDS: OMEGA-3/DHA/EPA/FISH OIL 1,000 MG CAPSULE PO SCH (09:00)
[2021-01-23] MEDS: NICOTINE 21 MG/24 HOUR PATCH TD SCH (09:04)
[2021-01-23 16:08] VITALS: BP 122/85
[2021-01-23] MEDS: ZOLPIDEM TARTRATE 10 MG TABLET PO SCH (20:00)
[2021-01-23] MEDS: MELATONIN 5 MG TABLET PO SCH (20:00)
[2021-01-23] MEDS: QUEtiapine FUMARATE 200 MG TABLET PO SCH (20:25)
[2021-01-24 08:00] VITALS: BP 143/99
[2021-01-24 08:27] VITALS: BP 143/99
[2021-01-24] MEDS: OMEGA-3/DHA/EPA/FISH OIL 1,000 MG CAPSULE PO SCH (08:48)
[2021-01-24] MEDS: NALTREXONE HCL 50 MG TABLET PO SCH (08:48)
[2021-01-24] MEDS: CloZAPine 100 MG TABLET PO SCH ×2 (08:49→20:02)
[2021-01-24] MEDS: NICOTINE 21 MG/24 HOUR PATCH TD SCH (08:49)
[2021-01-24] MEDS: MULTIVITAMINS WITH MINERALS, THERAPEUTIC TABLET PO SCH (08:49)
[2021-01-24 17:14] VITALS: BP 121/89
[2021-01-24] MEDS: QUEtiapine FUMARATE 200 MG TABLET PO SCH (20:02)
[2021-01-24] MEDS: ZOLPIDEM TARTRATE 10 MG TABLET PO SCH (20:02)
[2021-01-24] MEDS: MELATONIN 5 MG TABLET PO SCH (20:02)
[2021-01-25 08:30] VITALS: BP 127/96
[2021-01-25] MEDS: CloZAPine 100 MG TABLET PO SCH (09:15)
[2021-01-25] MEDS: NICOTINE 21 MG/24 HOUR PATCH TD SCH (09:15)
[2021-01-25] MEDS: MULTIVITAMINS WITH MINERALS, THERAPEUTIC TABLET PO SCH (09:15)
[2021-01-25] MEDS: NALTREXONE HCL 50 MG TABLET PO SCH (09:15)
[2021-01-25] MEDS: OMEGA-3/DHA/EPA/FISH OIL 1,000 MG CAPSULE PO SCH (09:15)
[2021-01-25] MEDS ORDERED: MELA5TAB40 PO (15:21)
[2021-01-25] MEDS ORDERED: QUET200T30 PO (15:21)
[2021-01-25] MEDS ORDERED: CLOZ100T31 PO (15:21)
[2021-01-25] MEDS ORDERED: OMEG-135 PO (15:21)
[2021-01-25] MEDS ORDERED: NALT50TA PO (15:21)
[2021-01-25 16:00] VITALS: BP 130/91
[2021-01-25] MEDS: MELATONIN 5 MG TABLET PO SCH (20:24)
[2021-01-25] MEDS: QUEtiapine FUMARATE 200 MG TABLET PO SCH (20:24)
[2021-01-25] MEDS: ZOLPIDEM TARTRATE 10 MG TABLET PO SCH (20:25)
[2021-01-25] MEDS ORDERED: CloZAPine 100 MG TABLET PO SCH (21:00)
[2021-01-26] MEDS: NALTREXONE HCL 50 MG TABLET PO SCH (08:53)
[2021-01-26] MEDS: OMEGA-3/DHA/EPA/FISH OIL 1,000 MG CAPSULE PO SCH (08:53)
[2021-01-26] MEDS: MULTIVITAMINS WITH MINERALS, THERAPEUTIC TABLET PO SCH (08:53)
[2021-01-26] MEDS: NICOTINE 21 MG/24 HOUR PATCH TD SCH (08:54)
[2021-01-26 08:56] LABS: COVID AG,FIA SOURCE NASAL SWAB
[2021-01-26 09:48] VITALS: BP 114/81
== END 2021-01-26 12:00 | disposition home or self-care (01) | DRG 750 ==
LOC: EMS 01:28 → 3EI 03:00
PROVIDERS: ADMIT Psychiatry & Neurology Psychiatry; ATTEND Psychiatry & Neurology Psychiatry
DX: F25.0 Schizoaffective disorder, bipolar type (principal); R45.851 Suicidal ideations; Z59.00 Homelessness unspecified; F17.200 Nicotine dependence, unspecified, uncomplicated; K21.9 Gastro-esophageal reflux disease without esophagitis; I10 Essential (primary) hypertension; Z20.822 Contact with and (suspected) exposure to COVID-19; J43.9 Emphysema, unspecified; Z79.899 Other long term (current) drug therapy
CPT/HCPCS: 80053; 80061; 80159; 80307; 81003; 85025; 87081; 99285; G0480; Q9967

== ENCOUNTER 2021-03-19 11:20 | Emergency (ER) | payer MEDICAID ==
[~2021-03-19] VITALS: Ht 190.5 cm; Wt 88.6 kg
[~2021-03-19 11:20] MED LIST changes: +CLOZ100T31 PO; -GABA-1201 PO; -MULT-1239 PO
[2021-03-19] MEDS ORDERED: LORazepam 1 MG TABLET PO ONE (12:15)
[2021-03-19 13:29] VITALS: BP 149/90
== END 2021-03-19 13:28 | disposition home or self-care (01) ==
LOC: EMS 11:20
DX: F25.9 Schizoaffective disorder, unspecified (principal); J44.9 Chronic obstructive pulmonary disease, unspecified; F31.9 Bipolar disorder, unspecified; I10 Essential (primary) hypertension; F17.210 Nicotine dependence, cigarettes, uncomplicated; F12.90 Cannabis use, unspecified, uncomplicated; F19.90 Other psychoactive substance use, unspecified, uncomplicated
CPT/HCPCS: 99283